=== PATIENT | female | born 1965 | race American Indian/Alaskan Native ===

== ENCOUNTER 2016-07-26 07:41 | Emergency (ER) | payer OTHER ==
[2016-07-26] MEDS ORDERED: SODIUM CHLORIDE 0.9% 500 ML IV STA (08:27)
[2016-07-26] MEDS ORDERED: ONDANSETRON 4 MG/2 ML VIAL IVP STA (08:44)
[2016-07-26] MEDS ORDERED: KETOROLAC 30 MG/ML 1 ML VIAL IVP STA (08:44)
[2016-07-26] MEDS ORDERED: FAMOTIDINE 20 MG/2 ML VIAL IV STA (08:44)
[2016-07-26 08:46] LABS: Basophils % (A) 1 %; Eosinophils # (A) 0.3 k/uL (0-0.7); Eosinophils % (A) 7 %; HCT 39.8 % (34.0-46.0); HDW 2.56; HGB 12.6 gm/dL (11.4-16.0); Luc # (Auto) 0.13; Luc % (Auto) 3; Lymphocytes # (A) 1.6 k/uL (1.0-4.8); Lymphocytes % (A) 35 %; MCH 24.7 pg (25.0-35.0); MCHC 31.6 g/dL (31.0-37.0); MCV 78.3 fL (80.0-100.0); Mean Platelet Volume 6.8; Monocytes # (A) 0.3 k/uL (0-1.0); Monocytes % (A) 6 %; Neutrophils # (A) 2.3 k/uL (1.3-7.7); Neutrophils % (A) 50 %; RBC 5.08 m/uL (3.80-5.40); RDW 12.7 % (11.5-15.5); WBC 4.7 k/uL (3.8-10.6); WBC (Perox) 4.63
--- NOTE | 2016-07-26 08:46 | ED ---
Abdominal Pain HPI - General Chief Complaint: Abdominal Pain Stated Complaint: abd pain Time Seen by Provider: 07/26/16 08:26 Source: patient, family, RN notes reviewed Mode of arrival: wheelchair Limitations: language barrier - History of Present Illness Initial Comments: 50-year-old female presents emergency Department chief complaint of right flank pain. Patient states started 2 days ago. Patient states she's had some nausea and vomiting. Denies any chest pain or shortness breath. Patient states it's on the right side towards her back and her abdomen. Patient states that she has chronic abdominal pain and which she seen surgeon for the past. She may have had a history of kidney stones. Patient denies any dysuria or hematuria. Denies any diarrhea constipation. Patient states that the Pain feel better or worse. - Related Data Home Medications Medication Instructions Recorded Confirmed Acetaminophen Tab [Tylenol Tab] 500 - 1,000 mg PO Q6H PRN 07/26/16 07/26/16 Albuterol Inhaler [Ventolin Hfa 2 puff INHALATION RT-Q4H PRN 07/26/16 07/26/16 Inhaler] Atorvastatin [Lipitor] 20 mg PO HS 07/26/16 07/26/16 Dicyclomine [Bentyl] 10 mg PO TID 07/26/16 07/26/16 Previous Rx's Medication Instructions Recorded Ciprofloxacin HCl [Cipro] 500 mg PO Q12HR #14 tablet 07/26/16 Allergies Allergy/AdvReac Type Severity Reaction Status Date / Time No Known Allergies Allergy Verified 07/26/16 08:40 Review of Systems ROS Statement: Those systems with pertinent positive or pertinent negative responses have been documented in the HPI. ROS Other: All systems not noted in ROS Statement are negative. Past Medical History Past Medical History: Asthma, Hyperlipidemia, Renal Disease Additional Past Medical History / Comment(s): uri History of Any Multi-Drug Resistant Organisms: None Reported Past Surgical History: Cholecystectomy Past Anesthesia/Blood Transfusion Reactions: No Reported Reaction Past Psychological History: No Psychological Hx Reported Smoking Status: Never smoker Past Alcohol Use History: None Reported Past Drug Use History: None Reported - Past Family History Father Family Medical History: Unable to Obtain Mother Family Medical History: Unable to Obtain General Exam Limitations: language barrier General appearance: alert, in no apparent distress Head exam: Present: atraumatic, normocephalic, normal inspection Eye exam: Present: normal appearance, PERRL, EOMI. Absent: scleral icterus, conjunctival injection, periorbital swelling Respiratory exam: Present: normal lung sounds bilaterally. Absent: respiratory distress, wheezes, rales, rhonchi, stridor Cardiovascular Exam: Present: regular rate, normal rhythm, normal heart sounds. Absent: systolic murmur, diastolic murmur, rubs, gallop, clicks GI/Abdominal exam: Present: soft, tenderness (Mild tenderness upper quadrant, right flank region), normal bowel sounds. Absent: distended, guarding, rebound , rigid Back exam: Present: full ROM, CVA tenderness (R). Absent: tenderness, CVA tenderness (L) Neurological exam: Present: alert, oriented X3, CN II-XII intact Skin exam: Present: warm, dry, intact, normal color. Absent: rash Course Vital Signs 07/26/16 07:47 Temperature 98.0 F Pulse Rate 84 Respiratory 20 Rate Blood Pressure 137/83 O2 Sat by Pulse 98 Oximetry Medical Decision Making - Medical Decision Making 50-year-old female presented for right-sided abdominal pain. Patient lab work within normal limits. Patient's urinalysis does show that she does have urinary tract infection. Patient's pain is improved at this time. Patient will be discharged. - Lab Data Result diagrams: 07/26/16 08:05 07/26/16 08:05 Lab Results 07/26/16 07/26/16 07/26/16 Range/Units 08:05 08:05 08:50 WBC 4.7 (3.8-10.6) k/uL RBC 5.08 (3.80-5.40) m/uL Hgb 12.6 (11.4-16.0) gm/dL Hct 39.8 (34.0-46.0) % MCV 78.3 L (80.0-100.0) fL MCH 24.7 L (25.0-35.0) pg MCHC 31.6 (31.0-37.0) g/dL RDW 12.7 (11.5-15.5) % Plt Count 209 (150-450) k/uL Neutrophils % 50 % Lymphocytes % 35 % Monocytes % 6 % Eosinophils % 7 % Basophils % 1 % Neutrophils # 2.3 (1.3-7.7) k/uL Lymphocytes # 1.6 (1.0-4.8) k/uL Monocytes # 0.3 (0-1.0) k/uL Eosinophils # 0.3 (0-0.7) k/uL Basophils # 0.0 (0-0.2) k/uL Sodium 143 (137-145) mmol/L Potassium 4.9 (3.5-5.1) mmol/L Chloride 103 (98-107) mmol/L Carbon Dioxide 30 (22-30) mmol/L Anion Gap 10 mmol/L BUN 12 (7-17) mg/dL Creatinine 0.64 (0.52-1.04) mg/dL Est GFR (MDRD) Af Amer >60 (>60 ml/min/1.73 sqM) Est GFR (MDRD) Non-Af >60 (>60 ml/min/1.73 sqM) Glucose 108 H (74-99) mg/dL Calcium 9.3 (8.4-10.2) mg/dL Total Bilirubin 0.6 (0.2-1.3) mg/dL AST 25 (14-36) U/L ALT 48 (9-52) U/L Alkaline Phosphatase 108 (38-126) U/L Total Protein 7.6 (6.3-8.2) g/dL Albumin 4.0 (3.5-5.0) g/dL Amylase 71 (30-110) U/L Lipase 100 (23-300) U/L Urine Color Urine Appearance (Clear) Urine pH (5.0-8.0) Ur Specific Marion (1.001-1.035) Urine Protein (Negative) Urine Glucose (UA) (Negative) Urine Ketones (Negative) Urine Blood (Negative) Urine Nitrate (Negative) Urine Bilirubin (Negative) Urine Urobilinogen (<2.0) mg/dL Ur Leukocyte Esterase (Negative) Urine RBC (0-5) /hpf Urine WBC (0-5) /hpf Ur Squamous Epith Cells (0-4) /hpf Urine Bacteria (None) /hpf Urine Mucus (None) /hpf Urine HCG, Qual Not Detected (Not Detectd) 07/26/16 Range/Units 08:50 WBC (3.8-10.6) k/uL RBC (3.80-5.40) m/uL Hgb (11.4-16.0) gm/dL Hct (34.0-46.0) % MCV (80.0-100.0) fL MCH (25.0-35.0) pg MCHC (31.0-37.0) g/dL RDW (11.5-15.5) % Plt Count (150-450) k/uL Neutrophils % % Lymphocytes % % Monocytes % % Eosinophils % % Basophils % % Neutrophils # (1.3-7.7) k/uL Lymphocytes # (1.0-4.8) k/uL Monocytes # (0-1.0) k/uL Eosinophils # (0-0.7) k/uL Basophils # (0-0.2) k/uL Sodium (137-145) mmol/L Potassium (3.5-5.1) mmol/L Chloride (98-107) mmol/L Carbon Dioxide (22-30) mmol/L Anion Gap mmol/L BUN (7-17) mg/dL Creatinine (0.52-1.04) mg/dL Est GFR (MDRD) Af Amer (>60 ml/min/1.73 sqM) Est GFR (MDRD) Non-Af (>60 ml/min/1.73 sqM) Glucose (74-99) mg/dL Calcium (8.4-10.2) mg/dL Total Bilirubin (0.2-1.3) mg/dL AST (14-36) U/L ALT (9-52) U/L Alkaline Phosphatase (38-126) U/L Total Protein (6.3-8.2) g/dL Albumin (3.5-5.0) g/dL Amylase (30-110) U/L Lipase (23-300) U/L Urine Color Light Yellow Urine Appearance Clear (Clear) Urine pH 5.0 (5.0-8.0) Ur Specific Marion 1.010 (1.001-1.035) Urine Protein Negative (Negative) Urine Glucose (UA) Negative (Negative) Urine Ketones Negative (Negative) Urine Blood Small H (Negative) Urine Nitrate Negative (Negative) Urine Bilirubin Negative (Negative) Urine Urobilinogen <2.0 (<2.0) mg/dL Ur Leukocyte Esterase Large H (Negative) Urine RBC 2 (0-5) /hpf Urine WBC 12 H (0-5) /hpf Ur Squamous Epith Cells 4 (0-4) /hpf Urine Bacteria Rare H (None) /hpf Urine Mucus Rare H (None) /hpf Urine HCG, Qual (Not Detectd) Disposition Clinical Impression: UTI (urinary tract infection) Disposition: HOME SELF-CARE Condition: Stable Instructions: Urinary Tract Infection in Women (ED) Additional Instructions: Please return to the Emergency Department if symptoms worsen or any other concerns. Prescriptions: Ciprofloxacin HCl [Cipro] 500 mg PO Q12HR #14 tablet Referrals: Ismael Hayes MD [Primary Care Provider] - 1-2 days Time of Disposition: 10:37
[2016-07-26 09:01] LABS: ALT 48 U/L (9-52); AST 25 U/L (14-36); Alkaline Phosphatase 108 U/L (38-126); Amylase 71 U/L (30-110); Anion Gap 10 mmol/L; Blood Urea Nitrogen 12 mg/dL (7-17); Calcium 9.3 mg/dL (8.4-10.2); Carbon Dioxide 30 mmol/L (22-30); Chloride 103 mmol/L (98-107); Glucose 108 mg/dL (74-99); Non-African American GFR(MDRD) >60 (>60 ml/min/1.73 sqM); Potassium 4.9 mmol/L (3.5-5.1); Sodium 143 mmol/L (137-145); Total Bilirubin 0.6 mg/dL (0.2-1.3); Total Protein 7.6 g/dL (6.3-8.2)
[2016-07-26 09:15] LABS: Appearance,Urine Clear (Clear); Bacteria,Urine Rare /hpf; Bilirubin,Urine Negative (Negative); Glucose,Urine (UA) Negative (Negative); Ketones,Urine Negative (Negative); Leukocyte Esterase,Urine Large (Negative); Mucus,Urine Rare /hpf; Nitrite,Urine Negative (Negative); Particle Count 3583; Protein,Urine Negative (Negative); RBC,Urine 2 /hpf (0-5); Squamous Epithelial Cell,Urine 4 /hpf (0-4); UA Billing (MACRO vs. MICRO) MICRO; Urobilinogen,Urine <2.0 mg/dL (<2.0); WBC,Urine 12 /hpf (0-5)
--- NOTE | 2016-07-26 10:10 | XR ---
EXAMINATION TYPE: XR KUB DATE OF EXAM: 07/26/2016 10:04 AM COMPARISON: NONE HISTORY: TECHNIQUE: Single supine KUB image of the abdomen is obtained FINDINGS: Small bowel demonstrates no evidence for dilatation or air fluid levels. Gas and fecal material is seen in non-distended colon. No convincing evidence for pneumoperitoneum. No unusual calcifications. The lung bases are clear. The osseous structures are intact. IMPRESSION: 1. Nonspecific nonobstructive bowel gas pattern.
[2016-07-26 10:49] VITALS: BP 134/88; PULSE 81; RESP 16; TEMP 97.8
== END 2016-07-26 10:48 | disposition home or self-care (01) ==
LOC: EC 07:41
DX: N39.0 Urinary tract infection, site not specified (principal); E78.5 Hyperlipidemia, unspecified; Z79.899 Other long term (current) drug therapy
CPT/HCPCS: 99284; 96374; 96375 ×2; 96361; 36415; 80053; 82150; 83690; 85025; 81001; 81025; 87086; 74000; J2405; J1885

== ENCOUNTER → 2016-08-10 | Outpatient (CLI) | payer OTHER ==
--- NOTE | 2016-08-10 17:48 | FL ---
EXAMINATION: Upper GI with small bowel follow through DATE: 08/10/2016 COMPARISON: Correlation CT 10/13/2015 HISTORY: 50-year-old female complaining of mid to lower abdominal pain for 2 years. GERD. Total Fluoroscopy Time: 1 minute 16 seconds. FINDINGS: The esophagus has a normal course, caliber, motility and mucosa. There is a tiny sliding hiatal hernia and moderate to severe spontaneous gastroesophageal reflux when the patient is supine. The stomach and duodenum are free of any persistent filling defect and demonstrate a normal mucosal p attern. Following administration of barium, serial films were carried out to 30 minutes. Barium is seen to re ach the colon. Loops of jejunum and ileum are compressed and examined under fluoroscopy. The small yunior wel loops have a normal-caliber. Mucosal pattern is within normal limits. No intrinsic or extrinsic p rocess is suspected. IMPRESSION: 1. A tiny sliding hiatal hernia but with moderate to severe spontaneous gastroesophageal reflux when the patient is supine. 2. Borderline fast small bowel transit time (30 minutes) but otherwise unremarkable small bowel exami nation. 3. The CT of 10/13/2015 is reviewed. There is hepatomegaly (21 cm craniocaudal) on that exam along wit h findings suggesting hepatic steatosis. Correlate with LFTs, lipid profile, and patient risk factors .
== END | disposition home or self-care (01) ==
LOC: RADFLMAIN 08:43
PROVIDERS: ATTEND Internal Medicine
DX: K21.9 Gastro-esophageal reflux disease without esophagitis (principal); K44.9 Diaphragmatic hernia without obstruction or gangrene
CPT/HCPCS: 74249

== ENCOUNTER → 2016-09-01 | Outpatient (CLI) | payer OTHER ==
--- NOTE | 2016-09-01 17:52 | XR ---
EXAMINATION TYPE: XR sacroiliac joint comp BILAT DATE OF EXAM: 09/01/2016 5:48 PM COMPARISON: 06/10/2014 HISTORY: SI joint pain TECHNIQUE: 3 views FINDINGS: Sacroiliac joint spaces are normal. I see no erosion or sclerosis. IMPRESSION: Normal exam. No change compared to old exam.
[2016-09-01 21:15] LABS: Appearance,Urine Clear (Clear); Bilirubin,Urine Negative (Negative); Glucose,Urine (UA) Negative (Negative); Ketones,Urine Negative (Negative); Leukocyte Esterase,Urine Small (Negative); Mucus,Urine Rare /hpf; Nitrite,Urine Negative (Negative); PH, Urine 5.5 (5.0-8.0); Particle Count 907; Protein,Urine Negative (Negative); RBC,Urine 1 /hpf (0-5); Specific Gravity,Urine 1.013 (1.001-1.035); Squamous Epithelial Cell,Urine 1 /hpf (0-4); UA Billing (MACRO vs. MICRO) MICRO; Urobilinogen,Urine <2.0 mg/dL (<2.0); WBC,Urine 7 /hpf (0-5)
[2016-09-02 16:57] LABS: ANA w/Reflex to Titer NEGATIVE (NEGATIVE)
== END | disposition home or self-care (01) ==
LOC: RADXRMAIN 17:25
PROVIDERS: ATTEND Internal Medicine
DX: M46.1 Sacroiliitis, not elsewhere classified (principal); M35.9 Systemic involvement of connective tissue, unspecified; M19.90 Unspecified osteoarthritis, unspecified site
CPT/HCPCS: 72202; 81001; 85652; 86038; 86225; 87086

== ENCOUNTER → 2016-11-10 | Outpatient (CLI) | payer OTHER ==
[2016-11-10 11:22] LABS: Appearance,Urine Clear (Clear); Bacteria,Urine Rare /hpf; Bilirubin,Urine Negative (Negative); Glucose,Urine (UA) Negative (Negative); Ketones,Urine Negative (Negative); Leukocyte Esterase,Urine Moderate (Negative); Mucus,Urine Rare /hpf; Nitrite,Urine Negative (Negative); Particle Count 2438; Protein,Urine Negative (Negative); RBC,Urine 2 /hpf (0-5); Specific Gravity,Urine 1.015 (1.001-1.035); Squamous Epithelial Cell,Urine 5 /hpf (0-4); UA Billing (MACRO vs. MICRO) MICRO; Urobilinogen,Urine <2.0 mg/dL (<2.0); WBC,Urine 8 /hpf (0-5)
[2016-11-10 11:34] LABS: Basophils % (A) 1 %; CH 24.7; CHCM 30.8; Eosinophils # (A) 0.2 k/uL (0-0.7); Eosinophils % (A) 5 %; HCT 36.2 % (34.0-46.0); HDW 2.57; HGB 11.2 gm/dL (11.4-16.0); Hypochromasia Moderate; Luc # (Auto) 0.14; Luc % (Auto) 4; Lymphocytes # (A) 1.4 k/uL (1.0-4.8); Lymphocytes % (A) 36 %; MCH 24.8 pg (25.0-35.0); MCHC 30.8 g/dL (31.0-37.0); MCV 80.4 fL (80.0-100.0); Mean Platelet Volume 6.4; Monocytes # (A) 0.2 k/uL (0-1.0); Monocytes % (A) 5 %; Neutrophils % (A) 49 %; RBC 4.51 m/uL (3.80-5.40); RDW 12.5 % (11.5-15.5); WBC 4.1 k/uL (3.8-10.6); WBC (Perox) 3.96
[2016-11-10 11:56] LABS: ALT 48 U/L (9-52); AST 32 U/L (14-36); Alkaline Phosphatase 103 U/L (38-126); Anion Gap 7 mmol/L; Blood Urea Nitrogen 12 mg/dL (7-17); Calcium 8.7 mg/dL (8.4-10.2); Carbon Dioxide 28 mmol/L (22-30); Chloride 106 mmol/L (98-107); Cholesterol 179 mg/dL (<200); Creatine Kinase 73 U/L (30-135); Glucose 99 mg/dL (74-99); HDL Cholesterol 34 mg/dL (40-60); Non-African American GFR(MDRD) >60 (>60 ml/min/1.73 sqM); Potassium 4.2 mmol/L (3.5-5.1); Sodium 141 mmol/L (137-145); Total Bilirubin 0.6 mg/dL (0.2-1.3); Total Protein 6.9 g/dL (6.3-8.2); Triglycerides 280 mg/dL (<150)
[2016-11-10 11:56] LABS: Magnesium 1.8 mg/dL (1.6-2.3); Phosphorous 3.3 mg/dL (2.5-4.5); Uric Acid 4.6 mg/dL (3.7-7.4)
[2016-11-10 13:00] LABS: C Reactive Protein <5.0 mg/L (<10.0)
[2016-11-10 14:02] LABS: Hemoglobin A1C 5.8 % (4.2-6.1)
[2016-11-10 14:21] LABS: Erythrocyte Sedimentation Rate 20 mm/hr (0-20)
== END | disposition home or self-care (01) ==
LOC: LABWHC1 10:17
PROVIDERS: ATTEND Internal Medicine
DX: Z00.00 Encounter for general adult medical examination without abnormal findings (principal); E78.5 Hyperlipidemia, unspecified; D64.9 Anemia, unspecified; N28.1 Cyst of kidney, acquired; I10 Essential (primary) hypertension; R31.29 Other microscopic hematuria; E55.9 Vitamin D deficiency, unspecified; E21.3 Hyperparathyroidism, unspecified; M10.9 Gout, unspecified
CPT/HCPCS: 36415; 80053; 80061; 81001; 82306; 82550; 82728; 83036; 83540; 83550; 83735; 83970; 84100; 84443; 84550; 85025; 85652; 86140

== ENCOUNTER 2017-06-05 17:15 | Emergency (ER) | payer OTHER ==
[2017-06-05 17:22] VITALS: BP 142/66; PULSE 83; RESP 16; TEMP 97.1
[2017-06-05] MEDS ORDERED: ORPHENADRINE 30 MG/ML 2 ML VIAL IM STA (17:33)
[2017-06-05] MEDS ORDERED: KETOROLAC 60 MG/2 ML VIAL IM STA (17:33)
--- NOTE | 2017-06-05 17:41 | ED ---
General Adult HPI - General Chief complaint: Abdominal Pain Stated complaint: back pain Time Seen by Provider: 06/05/17 17:27 Source: patient, family, RN notes reviewed Mode of arrival: ambulatory Limitations: no limitations, language barrier - History of Present Illness Initial comments: 51-year-old female presents to the emergency department with a chief complaint of left-sided back pain that extends up into the left shoulder. 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 she has the pain to the left side of the back and shoulder. Chest on the left side. There is no falls traumas or injuries. There is no numbness or tingling no loss of bowel bladder function. They're concerned due to the pulled muscles without that they should be. She also has some dry skin to the feet and they thought maybe we could give him something to help clear that up as well. There is been no nausea vomiting fever chills with this. Patient suffers from chronic abdominal pain but this is no different than her typical abdominal pain. Patient denies any recent fever, chills, shortness of breath, chest pain, abdominal pain, nausea vomiting, numbness or tingling, dysuria or hematuria, constipation or diarrhea, headaches or visual changes, or any other current symptoms. - Related Data Home Medications Medication Instructions Recorded Confirmed Cholecalciferol [Vitamin D3] 1,000 unit PO DAILY 06/05/17 06/05/17 Unknown Cholesterol Medication 40 mg PO DAILY 06/05/17 06/05/17 Previous Rx's Medication Instructions Recorded Bacitracin Oint 1 applic TOPICAL DAILY 5 Days gm 06/05/17 Ibuprofen [Motrin] 600 mg PO Q6HR PRN #20 tab 06/05/17 Orphenadrine [Norflex] 100 mg PO Q12H #10 tablet.er 06/05/17 Allergies Allergy/AdvReac Type Severity Reaction Status Date / Time No Known Allergies Allergy Verified 06/05/17 17:22 Review of Systems ROS Statement: Those systems with pertinent positive or pertinent negative responses have been documented in the HPI. ROS Other: All systems not noted in ROS Statement are negative. Past Medical History Past Medical History: Asthma, Hyperlipidemia, Renal Disease Additional Past Medical History / Comment(s): uri History of Any Multi-Drug Resistant Organisms: None Reported Past Surgical History: Cholecystectomy Past Anesthesia/Blood Transfusion Reactions: No Reported Reaction Past Psychological History: No Psychological Hx Reported Smoking Status: Never smoker Past Alcohol Use History: None Reported Past Drug Use History: None Reported - Past Family History Father Family Medical History: Unable to Obtain Mother Family Medical History: Unable to Obtain General Exam Limitations: no limitations, language barrier General appearance: alert, in no apparent distress ENT exam: Present: normal exam, mucous membranes moist Neck exam: Present: normal inspection. Absent: tenderness, meningismus, lymphadenopathy Respiratory exam: Present: normal lung sounds bilaterally. Absent: respiratory distress, wheezes, rales, rhonchi, stridor Cardiovascular Exam: Present: regular rate, normal rhythm, normal heart sounds. Absent: systolic murmur, diastolic murmur, rubs, gallop, clicks Extremities exam: Present: normal inspection, full ROM, normal capillary refill. Absent: tenderness, pedal edema, joint swelling, calf tenderness Back exam: Present: normal inspection, full ROM, tenderness (Along the left paraspinal region), muscle spasm (left paraspinal and thoracic). Absent: rash noted Neurological exam: Present: alert, oriented X3 Psychiatric exam: Present: normal affect, normal mood Skin exam: Present: warm, dry, intact, normal color. Absent: rash Course Vital Signs 06/05/17 17:19 Temperature 97.1 F L Pulse Rate 83 Respiratory 16 Rate Blood Pressure 142/66 O2 Sat by Pulse 100 Oximetry Medical Decision Making - Medical Decision Making 51 yo female presents to the ER with cc of left sided lumbar and thoracic strain. At this time patient's x-ray was discussed the results. We did discuss follow-up return parameters questions. Patient family stated the Vincent they're in agreement this plan. All questions have been answered. They'll be discharged. - Radiology Data Radiology results: report reviewed, image reviewed Disposition Clinical Impression: Lumbar strain, Dry skin, Thoracic myofascial strain Disposition: HOME SELF-CARE Condition: Stable Instructions: Low Back Strain (ED), Lower Back Exercises (ED) Additional Instructions: Please use medication as discussed. Please follow up with family doctor if symptoms have not improved over the next two days. Please return to the emergency room if your symptoms increase or worsen or for any other concerns. Prescriptions: Bacitracin Oint 1 applic TOPICAL DAILY 5 Days gm Ibuprofen [Motrin] 600 mg PO Q6HR PRN #20 tab PRN Reason: Pain Orphenadrine [Norflex] 100 mg PO Q12H #10 tablet.er Referrals: Ismael Hayes MD [Primary Care Provider] - 1-2 days Time of Disposition: 18:06
--- NOTE | 2017-06-05 17:53 | XR ---
EXAMINATION TYPE: XR lumbar spine 2 or 3V DATE OF EXAM: 06/05/2017 COMPARISON: NONE HISTORY: Right-sided back pain TECHNIQUE: 3 views FINDINGS: There is 25% anterior wedging of L2 vertebral body. This is probably old. Vertebra have tonia rly normal alignment. Sacroiliac joints are intact. I see no focal bone destruction. There are clips from cholecystectomy. IMPRESSION: L1 compression fracture is unchanged compared to CT scan of 10/05/2015. No acute bony abno rmality..
== END 2017-06-05 18:24 | disposition home or self-care (01) ==
LOC: EC 17:15
DX: S39.012A Strain of muscle, fascia and tendon of lower back, initial encounter (principal); S29.019A Strain of muscle and tendon of unspecified wall of thorax, initial encounter; L98.8 Other specified disorders of the skin and subcutaneous tissue; E78.5 Hyperlipidemia, unspecified; Z90.49 Acquired absence of other specified parts of digestive tract; Z79.899 Other long term (current) drug therapy
CPT/HCPCS: 72100; 99284; 96372 ×2; J2360; J1885

== ENCOUNTER → 2017-07-21 | Outpatient (CLI) | payer OTHER ==
[2017-07-21 12:45] LABS: Basophils % (A) 0 %; Eosinophils # (A) 0.2 k/uL (0-0.7); Eosinophils % (A) 3 %; HCT 41.2 % (34.0-46.0); HGB 12.4 gm/dL (11.4-16.0); Hypochromasia Slight; Lymphocytes # (A) 1.5 k/uL (1.0-4.8); Lymphocytes % (A) 32 %; MCH 23.9 pg (25.0-35.0); MCHC 30.2 g/dL (31.0-37.0); MCV 79.1 fL (80.0-100.0); Mean Platelet Volume 6.8; Monocytes # (A) 0.2 k/uL (0-1.0); Monocytes % (A) 5 %; Neutrophils # (A) 2.6 k/uL (1.3-7.7); Neutrophils % (A) 57 %; Platelet Count 229 k/uL (150-450); RBC 5.22 m/uL (3.80-5.40); RDW 12.5 % (11.5-15.5); WBC 4.5 k/uL (3.8-10.6)
[2017-07-21 12:56] LABS: ALT 55 U/L (9-52); AST 28 U/L (14-36); Albumin 4.1 g/dL (3.5-5.0); Alkaline Phosphatase 107 U/L (38-126); Anion Gap 7 mmol/L; Blood Urea Nitrogen 19 mg/dL (7-17); Calcium 9.5 mg/dL (8.4-10.2); Carbon Dioxide 30 mmol/L (22-30); Chloride 103 mmol/L (98-107); Glucose 100 mg/dL (74-99); HDL Cholesterol 38 mg/dL (40-60); Potassium 4.7 mmol/L (3.5-5.1); Sodium 140 mmol/L (137-145); Total Bilirubin 0.5 mg/dL (0.2-1.3); Total Protein 7.7 g/dL (6.3-8.2); Triglycerides 241 mg/dL (<150); Uric Acid 4.5 mg/dL (3.7-7.4)
[2017-07-21 13:01] LABS: LDL Cholesterol,Calculated 270 mg/dL (0-99)
[2017-07-21 13:29] LABS: Cholesterol 356 mg/dL (<200)
[2017-07-21 18:57] LABS: Vitamin D 25 Hydroxy 29.7 ng/mL (30.0-100.0)
[2017-07-21 21:38] LABS: Parathyroid Hormone Intact 87.1 pg/mL (14.0-72.0)
== END ==
LOC: LABWHC1 12:13
PROVIDERS: ATTEND Internal Medicine
DX: N18.3 Chronic kidney disease, stage 3 (moderate) (principal); E78.5 Hyperlipidemia, unspecified; E21.3 Hyperparathyroidism, unspecified; I10 Essential (primary) hypertension; E55.9 Vitamin D deficiency, unspecified; E16.2 Hypoglycemia, unspecified
CPT/HCPCS: 36415; 80053; 80061; 82306; 83970; 84443; 84550; 85025

== ENCOUNTER → 2017-08-18 | Outpatient (CLI) | payer OTHER ==
--- NOTE | 2017-08-18 13:01 | CT ---
EXAMINATION TYPE: CT urogram wo/w con DATE OF EXAM: 08/18/2017 COMPARISON: 06/15/2017 HISTORY: 51-year-old female Hematuria. TECHNIQUE: Contiguous axial scanning of the abdomen and pelvis performed without and with IV Contrast , patient injected with 100 mL of Omnipaque 300. Delayed images through the kidneys and bladder were obtained. Coronal/sagittal reconstructions performed. 3-D reconstructions generated on a dedicated in dependent workstation. CT DLP: 2986 mGycm Automated exposure control for dose reduction was used. FINDINGS: Heart is normal size without pericardial effusion. Lung bases clear without pleural effusion. Redemonstrated mild thyromegaly at 17.8 cm craniocaudal. Diffuse low-attenuation compatible with fatt y infiltration. Portal venous system is patent. No biliary ductal dilatation. Cholecystectomy clips a re present. Adrenal glands, spleen, and pancreas appear within normal limits. Symmetric uptake and excretion of contrast from the kidneys. Stable 1 cm hypodense lesion anterior mid right kidney too small for accurate CT characterization, li kwasi cyst. Also stable in 0.1 cm cortical hypodensity anterior left lower pole also [address] charact erization, likely cyst. No new renal lesions or nephrolithiasis is seen. No suspicious filling defect within the collecting systems ureters appear within normal limits. Both ureters are seen opacified along their entire length in combination with both the 4 minute and 10 min june delayed series. Prominent fluid distending the stomach. No dilated small bowel, free fluid, or free air. No mesenteric or retroperitoneal lymphadenopathy. Normal appendix. No significant stool burden. No pericolonic inflammatory change. The opacified bladder shows no discrete abnormality or filling defect. Uterus and ovaries are visuali zed. No abnormal fluid collection in the pelvis or pelvic lymphadenopathy. Bones: No osseous destructive process. Degenerative disc disease and facet arthropathy noted at L1-L2 with grade 1 retrolisthesis. IMPRESSION: 1. NO NEPHROLITHIASIS, HYDRONEPHROSIS, OR SUSPICIOUS RENAL LESION. 2. A 1 CM HYPODENSITY ON THE RIGHT AND 1.1 CM HYPODENSE LESION ON THE LEFT ARE UNCHANGED. WHILE THESE ARE TOO SMALL FOR ACCURATE CT CHARACTERIZATION, BENIGN CYSTS ARE SUSPECTED. 3. REDEMONSTRATED MILD HEPATOMEGALY AND MODERATE TO SEVERE HEPATIC STEATOSIS. CORRELATE WITH LFT's, L IPID PROFILE, AND PATIENT RISK FACTORS.
== END | disposition home or self-care (01) ==
LOC: RADCTMAIN 11:41
PROVIDERS: ATTEND Internal Medicine
DX: N28.89 Other specified disorders of kidney and ureter (principal); R16.0 Hepatomegaly, not elsewhere classified; K76.0 Fatty (change of) liver, not elsewhere classified; R93.421 Abnormal radiologic findings on diagnostic imaging of right kidney
CPT/HCPCS: 74178; 74400; Q9967

== ENCOUNTER → 2017-08-29 | Outpatient (CLI) | payer OTHER ==
[2017-08-29 13:16] LABS: Basophils % (A) 0 %; Eosinophils # (A) 0.2 k/uL (0-0.7); Eosinophils % (A) 6 %; HCT 38.4 % (34.0-46.0); HGB 11.7 gm/dL (11.4-16.0); Hypochromasia Slight; Lymphocytes # (A) 1.5 k/uL (1.0-4.8); Lymphocytes % (A) 36 %; MCH 24.1 pg (25.0-35.0); MCHC 30.5 g/dL (31.0-37.0); Mean Platelet Volume 6.6; Monocytes # (A) 0.2 k/uL (0-1.0); Monocytes % (A) 5 %; Neutrophils # (A) 2.1 k/uL (1.3-7.7); Neutrophils % (A) 51 %; Platelet Count 227 k/uL (150-450); RBC 4.86 m/uL (3.80-5.40); RDW 12.7 % (11.5-15.5); WBC 4.2 k/uL (3.8-10.6)
[2017-08-29 13:31] LABS: ALT 29 U/L (9-52); AST 25 U/L (14-36); Alkaline Phosphatase 99 U/L (38-126); Anion Gap 9 mmol/L; Blood Urea Nitrogen 14 mg/dL (7-17); Calcium 9.3 mg/dL (8.4-10.2); Carbon Dioxide 31 mmol/L (22-30); Chloride 104 mmol/L (98-107); Glucose 97 mg/dL (74-99); Potassium 4.9 mmol/L (3.5-5.1); Sodium 144 mmol/L (137-145); Total Bilirubin 0.4 mg/dL (0.2-1.3); Total Protein 7.3 g/dL (6.3-8.2)
== END | disposition home or self-care (01) ==
LOC: LABWHC1 12:19
PROVIDERS: ATTEND Internal Medicine
DX: E11.9 Type 2 diabetes mellitus without complications (principal)
CPT/HCPCS: 36415; 80053; 85025

== ENCOUNTER → 2017-09-27 | Outpatient (CLI) | payer OTHER ==
[2017-09-27 17:48] LABS: T4, Free (Free Thyroxine) 1.42 ng/dL (0.78-2.19)
--- NOTE | 2017-09-27 22:39 | US ---
EXAMINATION TYPE: US thyroid st tissue head/neck DATE OF EXAM: 09/27/2017 COMPARISON: NONE CLINICAL HISTORY: 51-year-old female E04.9 THYROMEGALY. Technique: Multiple sonographic images of the thyroid gland are obtained. FINDINGS: Right Lobe: 3.6 x 1.6 x 1.8 cm Overall Parenchyma: homogenous Left Lobe: 3.1 x 1.4 x 1.6 cm Overall Parenchyma: homogeneous Isthmus Thickness: 0.2 cm NODULES RIGHT: # of nodules measured on right: 1 1. 1.2 X 1.1 x 1.1 cm isoechoic solid nodule at the lower pole with well-defined margins; . This n odule is wider than tall and shows intranodular vascularity. Prior size: no prior LEFT: # of nodules measured on left: 0 ISTHMUS: # of nodules measured in the isthmus: 0 Bilateral neck scanned, no evidence of lymphadenopathy. IMPRESSION: Solitary 1.2 cm solid nodule in the right lower pole. If there are no clinical findings to suggest a hyperfunctioning adenoma, FNA can be considered.
[2017-09-28 01:19] LABS: Parathyroid Hormone Intact 108.1 pg/mL (14.0-72.0); Thyroid Peroxidase Antibodies <28.0 U/mL (0.0-60.0)
== END | disposition home or self-care (01) ==
LOC: RADUSWWP 16:21
PROVIDERS: ATTEND Internal Medicine
DX: E04.1 Nontoxic single thyroid nodule (principal); E03.9 Hypothyroidism, unspecified
CPT/HCPCS: 36415; 76536; 83970; 84439; 84443; 85652; 86376; 86800

== ENCOUNTER → 2017-10-03 | Outpatient (CLI) | payer OTHER ==
--- NOTE | 2017-10-04 09:07 | NM ---
EXAMINATION TYPE: NM parathyroid DATE OF EXAM: 10/03/2017 COMPARISON: NONE HISTORY: Abnormal calcium levels and increased parathyroid hormone TECHNIQUE: Following administration of 25.4 mCi Tc99m Sestamibi. Anterior projection images of the neck and ches t were obtained 10 minutes and 3 hours post injection FINDINGS: Thyroid tracer washout: Delayed images demonstrate incomplete tracer washout from the thyroid. Parathyroid uptake: None. The two-hour delayed images do not demonstrate any focal abnormal persisten t uptake in the region of the parathyroid glands to suggest parathyroid adenoma. Normal uptake: There is physiological tracer uptake in the salivary glands, and thyroid gland. IMPRESSION: Although laboratory values suggest parathyroid adenoma no parathyroid adenoma is appreciated on the e xamination. No evidence for mediastinal uptake to suggest mediastinal parathyroid adenoma
== END | disposition home or self-care (01) ==
LOC: RADNMMAIN 11:28
PROVIDERS: ATTEND Internal Medicine
DX: D35.1 Benign neoplasm of parathyroid gland (principal)
CPT/HCPCS: 78070; A9500

== ENCOUNTER 2017-10-20 11:46 | Emergency (ER) | payer OTHER ==
--- NOTE | 2017-10-20 12:16 | ED ---
General Adult HPI - General Chief complaint: Upper Respiratory Infection Stated complaint: Cough Time Seen by Provider: 10/20/17 12:07 Source: patient, RN notes reviewed Mode of arrival: ambulatory Limitations: no limitations - History of Present Illness Initial comments: 51-year-old female presents to the emergency department for a chief complaint of cough and congestion x 2 days. Patient's is translating for her as she is not Sudanese speaking. Patient states the cough is sometimes productive and she sometimes feels short of breath after a coughing spell. She has also been congested for the past 2 days and complains of pressure in the ears bilaterally. Patient admits to chills but states she has not checked her temperature at home. Patient admits to sore throat only when she coughs. Patient denies any abdominal pain, nausea, or vomiting. Patient denies chest pain or tightness in the chest. Patient admits to history of asthma but denies smoking or COPD. Patient has a nebulizer at home for which she has run out of medication. - Related Data Home Medications Medication Instructions Recorded Confirmed Cholecalciferol [Vitamin D3] 1,000 unit PO DAILY 06/05/17 10/20/17 Unknown Cholesterol Medication 40 mg PO DAILY 06/05/17 10/20/17 Previous Rx's Medication Instructions Recorded Ibuprofen [Motrin] 600 mg PO Q6HR PRN #20 tab 06/05/17 Orphenadrine [Norflex] 100 mg PO Q12H #10 tablet.er 06/05/17 Albuterol Nebulized [Ventolin 2.5 mg INHALATION Q6H PRN 10 Days 10/20/17 Nebulized] nebu Benzonatate [Tessalon Perles] 200 mg PO Q8H PRN #15 capsule 10/20/17 predniSONE 50 mg PO DAILY #5 tablet 10/20/17 Allergies Allergy/AdvReac Type Severity Reaction Status Date / Time No Known Allergies Allergy Verified 10/20/17 12:05 Review of Systems ROS Statement: Those systems with pertinent positive or pertinent negative responses have been documented in the HPI. ROS Other: All systems not noted in ROS Statement are negative. Past Medical History Past Medical History: Asthma, Hyperlipidemia, Renal Disease Additional Past Medical History / Comment(s): uri History of Any Multi-Drug Resistant Organisms: None Reported Past Surgical History: Cholecystectomy Past Anesthesia/Blood Transfusion Reactions: No Reported Reaction Past Psychological History: No Psychological Hx Reported Smoking Status: Never smoker Past Alcohol Use History: None Reported Past Drug Use History: None Reported - Past Family History Father Family Medical History: Unable to Obtain Mother Family Medical History: Unable to Obtain General Exam Limitations: no limitations Head exam: Present: atraumatic, normocephalic, normal inspection Eye exam: Present: normal appearance, PERRL, EOMI. Absent: scleral icterus, conjunctival injection, periorbital swelling ENT exam: Present: normal exam, normal oropharynx, mucous membranes moist, TM's normal bilaterally Neck exam: Present: normal inspection, full ROM. Absent: tenderness, meningismus, lymphadenopathy Respiratory exam: Present: wheezes (Bilaterally). Absent: respiratory distress , rales, rhonchi, stridor, chest wall tenderness, accessory muscle use, decreased breath sounds, prolonged expiratory Cardiovascular Exam: Present: regular rate, normal rhythm, normal heart sounds. Absent: systolic murmur, diastolic murmur, rubs, gallop, clicks GI/Abdominal exam: Present: soft, normal bowel sounds. Absent: distended, tenderness, guarding, rebound, rigid Neurological exam: Present: alert, oriented X3 Psychiatric exam: Present: normal affect, normal mood Skin exam: Present: warm, dry, intact, normal color. Absent: rash Course Vital Signs 10/20/17 10/20/17 12:02 13:09 Temperature 98.1 F 98.3 F Pulse Rate 75 81 Respiratory 18 20 Rate Blood Pressure 121/71 132/65 O2 Sat by Pulse 96 98 Oximetry Medical Decision Making - Medical Decision Making 51-year-old female presents to the emergency department for a chief complaint of cough and congestion x 2 days. Patient has a history of asthma but denies COPD or smoking. Patient states she has had chills but has not checked her temperature at home. Patient is afebrile on examination. Vitals within normal limits: Temp 98.1F, pulse 75, respirations 18, blood pressure 121/71, pulse ox 96% on room air. Patient states she only has a sore throat when she coughs. On exam, no submandibular glands present nor erythematous/exudative tonsils. Patient does have bilateral wheezing in the lungs. Flu swab and chest x-ray were obtained. Chest x-ray showed no acute cardiopulmonary process. There are chronic changes with possible chronic bronchitis or asthma. Influenza was negative. This is likely a upper respiratory infection. Patient was given Tessalon Perles, prednisone, and albuterol for her nebulizer at home. Patient is to come back to the emergency Department if she has worsening symptoms, high fevers, or difficulty breathing. She is to follow up with primary care in 1-2 days. - Lab Data Lab Results 10/20/17 Range/Units 12:15 Influenza Type A RNA Not Detected (Not Detectd) Influenza Type B (PCR) Not Detected (Not Detectd) Disposition Clinical Impression: Common cold Disposition: HOME SELF-CARE Condition: Good Instructions: Upper Respiratory Infection (ED) Additional Instructions: Please take medications provided as directed. Please take ibuprofen or Tylenol for pain relief or fever reduction. Please follow-up with primary care provider in one to 2 days. Please return to the emergency department if symptoms worsen, you develop shortness of breath, or start developing high fevers. Prescriptions: Albuterol Nebulized [Ventolin Nebulized] 2.5 mg INHALATION Q6H PRN 10 Days nebu PRN Reason: Shortness Of Breath Benzonatate [Tessalon Perles] 200 mg PO Q8H PRN #15 capsule PRN Reason: Cough predniSONE 50 mg PO DAILY #5 tablet Referrals: Ismael Hayes MD [Primary Care Provider] - 1-2 days Time of Disposition: 13:03
--- NOTE | 2017-10-20 12:35 | XR ---
EXAMINATION TYPE: XR chest 2V DATE OF EXAM: 10/20/2017 COMPARISON: 02/05/2016 HISTORY: 51-year-old female with cough and congestion, pain TECHNIQUE: Frontal and lateral views FINDINGS: Heart normal size. Aorta within normal limits. Diffuse interstitial prominence with peribronchial cuf fing appears unchanged. No consolidation or pleural effusion. IMPRESSION: Chronic changes, possible chronic bronchitis/asthma. No acute cardiopulmonary process.
[2017-10-20 13:10] VITALS: BP 132/65; PULSE 81; RESP 20; TEMP 98.3
== END 2017-10-20 13:09 | disposition home or self-care (01) ==
LOC: EC 11:46
DX: J00 Acute nasopharyngitis [common cold] (principal); R06.02 Shortness of breath; E78.5 Hyperlipidemia, unspecified; Z79.899 Other long term (current) drug therapy
CPT/HCPCS: 71046; 87502; 99283

== ENCOUNTER 2017-11-11 12:17 | Day surgery (SDC) | payer OTHER ==
[2017-11-11 12:48] VITALS: RESP 16; TEMP 97.7
[2017-11-11] MEDS ORDERED: ALPRAZolam 0.5 MG TAB PO STA (12:55)
--- NOTE | 2017-11-11 14:08 | US ---
ULTRASOUND GUIDED FNA THYROID BIOPSY: CLINICAL HISTORY: Right thyroid nodule FINDINGS: The procedure was explained to the patient. The risks, complications, benefits and alternatives were discussed and any questions were answered. Informed consent was obtained. Patient was placed supin e on the ultrasound table and prepped and draped in the usual sterile fashion. Utilizing a 25 gauge needle, five passes were made into the requested right thyroid nodule. Patient was stable throughout the procedure. Pathology is pending. All elements of maximal barrier technique were utilized. IMPRESSION: 1. Successful ultrasound guided FNA thyroid biopsy.
[2017-11-11 14:47] VITALS: BP 121/68; PULSE 90
== END 2017-11-11 14:15 | disposition home or self-care (01) ==
LOC: RADPROMAIN 12:17
PROVIDERS: ATTEND Internal Medicine
DX: E04.1 Nontoxic single thyroid nodule (principal)
CPT/HCPCS: 10022; 76942; 88173; 88305

== ENCOUNTER → 2017-11-14 | Outpatient (CLI) | payer OTHER ==
[2017-11-14 12:08] LABS: ALT 26 U/L (9-52); AST 24 U/L (14-36); Anion Gap 9 mmol/L; Blood Urea Nitrogen 22 mg/dL (7-17); C Reactive Protein 6.2 mg/L (<10.0); Calcium 9.1 mg/dL (8.4-10.2); Carbon Dioxide 29 mmol/L (22-30); Chloride 105 mmol/L (98-107); Cholesterol 177 mg/dL (<200); Creatine Kinase 55 U/L (30-135); Glucose 104 mg/dL (74-99); HDL Cholesterol 39 mg/dL (40-60); LDL Cholesterol,Calculated 89 mg/dL (0-99); Magnesium 1.7 mg/dL (1.6-2.3); Phosphorus 3.2 mg/dL (2.5-4.5); Sodium 143 mmol/L (137-145); Triglycerides 245 mg/dL (<150)
== END | disposition home or self-care (01) ==
LOC: LABWHC1 11:16
PROVIDERS: ATTEND Internal Medicine
DX: E78.5 Hyperlipidemia, unspecified (principal); E87.8 Other disorders of electrolyte and fluid balance, not elsewhere classified; E21.3 Hyperparathyroidism, unspecified; J45.909 Unspecified asthma, uncomplicated
CPT/HCPCS: 36415; 80048; 80061; 82306; 82550; 83735; 84100; 84450; 84460; 85652; 86140

== ENCOUNTER → 2018-02-01 | Outpatient (CLI) | payer OTHER ==
--- NOTE | 2018-02-01 16:08 | US ---
EXAMINATION TYPE: US pelvic complete DATE OF EXAM: 02/01/2018 COMPARISON: CT urogram August 18, 2017 CLINICAL HISTORY: R10.2 PELVIC PAIN. Generalized pelvic pain, LMP 7 yrs ago TECHNIQUE: Transabdominal (TA). Transabdominal sonographic images of the pelvis were acquired. Language barrier with patient EXAM MEASUREMENTS: Uterus: 7.5 x 3.6 x 4.5 cm Endometrial Stripe: 0.4 cm Right Ovary: 2.0 x 1.3 x 1.4 cm Left Ovary: 2.0 x 1.2 x 1.2 cm 1. Uterus: Anteverted heterogeneous, small Nabothian cyst in cervix 2. Endometrium: wnl 3. Right Ovary: wnl 4. Left Ovary: wnl 5. Bilateral Adnexa: wnl 6. Posterior cul-de-sac: wnl IMPRESSION: Images saved show no suspicious finding to account for patient's symptoms of pelvic pain.
== END | disposition home or self-care (01) ==
LOC: RADUSWWP 15:41
PROVIDERS: ATTEND Obstetrics & Gynecology
DX: R10.2 Pelvic and perineal pain (principal)
CPT/HCPCS: 76856

== ENCOUNTER → 2018-02-27 | Outpatient (CLI) | payer OTHER ==
[2018-02-27 13:59] LABS: ALT 39 U/L (9-52); AST 28 U/L (14-36); Albumin 3.8 g/dL (3.5-5.0); Alkaline Phosphatase 91 U/L (38-126); Anion Gap 3 mmol/L; Blood Urea Nitrogen 17 mg/dL (7-17); C Reactive Protein 5.2 mg/L (<10.0); Carbon Dioxide 30 mmol/L (22-30); Chloride 107 mmol/L (98-107); Glucose 98 mg/dL (74-99); Magnesium 1.8 mg/dL (1.6-2.3); Phosphorus 3.4 mg/dL (2.5-4.5); Potassium 4.8 mmol/L (3.5-5.1); Sodium 140 mmol/L (137-145); Total Bilirubin 0.3 mg/dL (0.2-1.3); Total Protein 6.8 g/dL (6.3-8.2)
[2018-02-27 18:46] LABS: Parathyroid Hormone Intact 77.2 pg/mL (14.0-72.0)
[2018-02-27 19:07] LABS: Hepatitis A Antibody IgM Non-Reactive (Non-Reactive); Hepatitis B Core IgM Non-Reactive (Non-Reactive)
[2018-02-27 19:27] LABS: DNA Double-Stranded NEGATIVE (NEGATIVE)
[2018-02-27 21:02] LABS: Hemoglobin A1C 5.7 % (4.0-6.0)
== END | disposition home or self-care (01) ==
LOC: LABWHC1 12:16
PROVIDERS: ATTEND Internal Medicine
DX: E03.8 Other specified hypothyroidism (principal)
CPT/HCPCS: 36415; 80053; 80074; 83036; 83735; 83970; 84100; 85652; 86038; 86140; 86225

== ENCOUNTER → 2018-03-06 | Outpatient (CLI) | payer OTHER ==
--- NOTE | 2018-03-07 13:54 | MM ---
Reason for exam: screening (asymptomatic). Last mammogram was performed 5 years and 7 months ago. Physical Findings: A clinical breast exam by your physician is recommended on an annual basis and results should be correlated with mammographic findings. MG 3D Screening Mammo W/Cad Bilateral CC and MLO view(s) were taken. Technologist: Kellee Ivory RT (R)(M) Prior study comparison: July 26, 2012, bilateral digital screening mammo w/CAD. There are scattered fibroglandular densities. No significant changes when compared with prior studies. ASSESSMENT: Benign, BI-RAD 2 RECOMMENDATION: Routine screening mammogram of both breasts in 1 year.
== END | disposition home or self-care (01) ==
LOC: RADMAMWWP 14:05
PROVIDERS: ATTEND Obstetrics & Gynecology
DX: Z12.31 Encounter for screening mammogram for malignant neoplasm of breast (principal)
CPT/HCPCS: 77063; 77067

== ENCOUNTER 2018-03-15 08:52 | Observation (INO) | payer OTHER ==
[2018-03-15] MEDS ORDERED: NITROGLYCERIN OINT 1 INCH/GM PACKET TOPICAL STA (09:26)
[2018-03-15] MEDS ORDERED: ASPIRIN 81 MG PO STA (09:26)
[2018-03-15] MEDS ORDERED: IPRATROPIUM-ALBUTEROL 3 ML NEB INHALATION STA (09:29)
--- NOTE | 2018-03-15 09:29 | ED ---
General Adult HPI - General Chief complaint: Chest Pain Stated complaint: chest pain Time Seen by Provider: 03/15/18 08:55 Source: patient, family, RN notes reviewed Mode of arrival: ambulatory Limitations: language barrier - History of Present Illness Initial comments: This is a 52-year-old female who presents emergency Department with a past medical history of borderline hypertension. Patient states she had chest pain and weak ago and it eventually resolved and last night again she started having chest pain 1:00 in the morning. Patient states the pain comes and goes it's a pressure sensation radiates to her left upper back. Patient states pain comes and goes. Patient denies any diaphoresis. Patient does states she was short of breath when the pain comes. Patient denies any nausea. Patient denies abdominal pain patient denies any vomiting or diarrhea. Patient denies any recent fever chills or cough. Patient denies any previous heart disease. Patient denies any smoking. Patient denies headache patient denies numbness weakness. Patient denies lightheadedness dizziness or nursing blood cell. Patient denies any recent injury or trauma. Patient denies any reproducible pain to palpation. - Related Data Home Medications Medication Instructions Recorded Confirmed Cholecalciferol [Vitamin D3] 1,000 unit PO DAILY 06/05/17 10/31/17 Pantoprazole Sodium 40 mg PO DAILY 11/11/17 11/11/17 Rosuvastatin [Crestor] 20 mg PO DAILY 11/11/17 11/11/17 Previous Rx's Medication Instructions Recorded Ibuprofen [Motrin] 600 mg PO Q6HR PRN #20 tab 06/05/17 Albuterol Nebulized [Ventolin 2.5 mg INHALATION Q6H PRN 10 Days 10/20/17 Nebulized] nebu Benzonatate [Tessalon Perles] 200 mg PO Q8H PRN #15 capsule 10/20/17 Allergies Allergy/AdvReac Type Severity Reaction Status Date / Time No Known Allergies Allergy Verified 03/15/18 08:56 Review of Systems ROS Statement: Those systems with pertinent positive or pertinent negative responses have been documented in the HPI. ROS Other: All systems not noted in ROS Statement are negative. Past Medical History Past Medical History: Asthma, Hyperlipidemia, Renal Disease, Thyroid Disorder Additional Past Medical History / Comment(s): thyroid nodules History of Any Multi-Drug Resistant Organisms: None Reported Past Surgical History: Cholecystectomy Past Anesthesia/Blood Transfusion Reactions: No Reported Reaction Past Psychological History: No Psychological Hx Reported Smoking Status: Never smoker Past Alcohol Use History: None Reported Past Drug Use History: None Reported - Past Family History Father Family Medical History: Unable to Obtain Mother Family Medical History: Unable to Obtain General Exam - General Exam Comments Initial Comments: GENERAL: Patient is well-developed and well-nourished. Patient is nontoxic and well- hydrated and is in mild distress. ENT: Neck is soft and supple. No significant lymphadenopathy is noted. Oropharynx is clear. Moist mucous membranes. Neck has full range of motion without eliciting any pain. EYES: The sclera were anicteric and conjunctiva were pink and moist. Extraocular movements were intact and pupils were equal round and reactive to light. Eyelids were unremarkable. PULMONARY: Patient has an expiratory wheeze CARDIOVASCULAR: There is a regular rate and rhythm without any murmurs gallops or rubs. ABDOMEN: Soft and nontender with normal bowel sounds. No palpable organomegaly was noted. There is no palpable pulsatile mass. SKIN: Skin is clear with no lesions or rashes and otherwise unremarkable. NEUROLOGIC: Patient is alert and oriented x3. Cranial nerves II through XII are grossly intact. Motor and sensory are also intact. Normal speech, volume and content. Symmetrical smile. MUSCULOSKELETAL: Normal extremities with adequate strength and full range of motion. No lower extremity swelling or edema. No calf tenderness. LYMPHATICS: No significant lymphadenopathy is noted PSYCHIATRIC: Normal psychiatric evaluation. Normal interpersonal interactions appears functionally intact in deals appropriately with others. No signs of depression. No signs of anxiety. 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 Patient's EKG shows no ST segment elevation or depression or T wave abnormalities are noted. Chest x-ray shows cardiomegaly Patient did have some intermittent chest pain while in the emergency department. Because the patient's intermittent chest pain I believe the patient was having unstable angina/started the patient on heparin. I spoke with Dr. Hayes agreed to admit the patient admitted patient wrote admitting orders - Lab Data Result diagrams: 03/15/18 09:30 03/15/18 09:30 Lab Results 03/15/18 03/15/18 03/15/18 Range/Units 09:30 09:30 09:30 WBC 4.2 (3.8-10.6) k/uL RBC 4.78 (3.80-5.40) m/uL Hgb 11.6 (11.4-16.0) gm/dL Hct 36.9 (34.0-46.0) % MCV 77.2 L (80.0-100.0) fL MCH 24.2 L (25.0-35.0) pg MCHC 31.4 (31.0-37.0) g/dL RDW 13.0 (11.5-15.5) % Plt Count 209 (150-450) k/uL Neutrophils % 46 % Lymphocytes % 39 % Monocytes % 5 % Eosinophils % 7 % Basophils % 0 % Neutrophils # 1.9 (1.3-7.7) k/uL Lymphocytes # 1.7 (1.0-4.8) k/uL Monocytes # 0.2 (0-1.0) k/uL Eosinophils # 0.3 (0-0.7) k/uL Basophils # 0.0 (0-0.2) k/uL PT (9.0-12.0) sec INR (<1.2) APTT (22.0-30.0) sec Sodium 140 (137-145) mmol/L Potassium 4.4 (3.5-5.1) mmol/L Chloride 106 (98-107) mmol/L Carbon Dioxide 27 (22-30) mmol/L Anion Gap 7 mmol/L BUN 16 (7-17) mg/dL Creatinine 0.59 (0.52-1.04) mg/dL Est GFR (CKD-EPI)AfAm >90 (>60 ml/min/1.73 sqM) Est GFR (CKD-EPI)NonAf >90 (>60 ml/min/1.73 sqM) Glucose 95 (74-99) mg/dL Calcium 8.8 (8.4-10.2) mg/dL Magnesium 1.9 (1.6-2.3) mg/dL Total Bilirubin 0.5 (0.2-1.3) mg/dL AST 26 (14-36) U/L ALT 35 (9-52) U/L Alkaline Phosphatase 86 (38-126) U/L Total Creatine Kinase 79 (30-135) U/L CK-MB (CK-2) 0.5 (0.0-2.4) ng/mL CK-MB (CK-2) Rel Index 0.6 Troponin I <0.012 (0.000-0.034) ng/mL Total Protein 6.7 (6.3-8.2) g/dL Albumin 3.6 (3.5-5.0) g/dL 03/15/18 Range/Units 09:30 WBC (3.8-10.6) k/uL RBC (3.80-5.40) m/uL Hgb (11.4-16.0) gm/dL Hct (34.0-46.0) % MCV (80.0-100.0) fL MCH (25.0-35.0) pg MCHC (31.0-37.0) g/dL RDW (11.5-15.5) % Plt Count (150-450) k/uL Neutrophils % % Lymphocytes % % Monocytes % % Eosinophils % % Basophils % % Neutrophils # (1.3-7.7) k/uL Lymphocytes # (1.0-4.8) k/uL Monocytes # (0-1.0) k/uL Eosinophils # (0-0.7) k/uL Basophils # (0-0.2) k/uL PT 9.9 (9.0-12.0) sec INR 1.0 (<1.2) APTT 24.3 (22.0-30.0) sec Sodium (137-145) mmol/L Potassium (3.5-5.1) mmol/L Chloride (98-107) mmol/L Carbon Dioxide (22-30) mmol/L Anion Gap mmol/L BUN (7-17) mg/dL Creatinine (0.52-1.04) mg/dL Est GFR (CKD-EPI)AfAm (>60 ml/min/1.73 sqM) Est GFR (CKD-EPI)NonAf (>60 ml/min/1.73 sqM) Glucose (74-99) mg/dL Calcium (8.4-10.2) mg/dL Magnesium (1.6-2.3) mg/dL Total Bilirubin (0.2-1.3) mg/dL AST (14-36) U/L ALT (9-52) U/L Alkaline Phosphatase (38-126) U/L Total Creatine Kinase (30-135) U/L CK-MB (CK-2) (0.0-2.4) ng/mL CK-MB (CK-2) Rel Index Troponin I (0.000-0.034) ng/mL Total Protein (6.3-8.2) g/dL Albumin (3.5-5.0) g/dL Critical Care Time Critical Care Time: Yes Total Critical Care Time: 35 Disposition Clinical Impression: Unstable angina pectoris Disposition: ADMITTED IP TO THIS HOSP Is patient prescribed a controlled substance at d/c from ED?: No Referrals: Ismael Hayes MD [Primary Care Provider] - 1-2 days Time of Disposition: 10:31
[2018-03-15 09:47] LABS: Basophils % (A) 0 %; Eosinophils # (A) 0.3 k/uL (0-0.7); Eosinophils % (A) 7 %; HCT 36.9 % (34.0-46.0); HGB 11.6 gm/dL (11.4-16.0); Lymphocytes # (A) 1.7 k/uL (1.0-4.8); Lymphocytes % (A) 39 %; MCH 24.2 pg (25.0-35.0); MCHC 31.4 g/dL (31.0-37.0); MCV 77.2 fL (80.0-100.0); Mean Platelet Volume 6.9; Monocytes # (A) 0.2 k/uL (0-1.0); Monocytes % (A) 5 %; Neutrophils # (A) 1.9 k/uL (1.3-7.7); Neutrophils % (A) 46 %; Platelet Count 209 k/uL (150-450); RBC 4.78 m/uL (3.80-5.40); WBC 4.2 k/uL (3.8-10.6)
[2018-03-15 09:58] LABS: ALT 35 U/L (9-52); AST 26 U/L (14-36); Albumin 3.6 g/dL (3.5-5.0); Alkaline Phosphatase 86 U/L (38-126); Anion Gap 7 mmol/L; Blood Urea Nitrogen 16 mg/dL (7-17); Calcium 8.8 mg/dL (8.4-10.2); Carbon Dioxide 27 mmol/L (22-30); Chloride 106 mmol/L (98-107); Glucose 95 mg/dL (74-99); Magnesium 1.9 mg/dL (1.6-2.3); Potassium 4.4 mmol/L (3.5-5.1); Sodium 140 mmol/L (137-145); Total Bilirubin 0.5 mg/dL (0.2-1.3); Total Protein 6.7 g/dL (6.3-8.2)
[2018-03-15 09:59] LABS: Partial Thromboplastin Time 24.3 sec (22.0-30.0); Prothrombin Time 9.9 sec (9.0-12.0)
--- NOTE | 2018-03-15 10:03 | XR ---
EXAMINATION TYPE: XR chest 2V DATE OF EXAM: 03/15/2018 COMPARISON: 10/20/2017 INDICATION: Chest pain TECHNIQUE: Frontal and lateral views of the chest are obtained. FINDINGS: The heart size is mildly prominent. The pulmonary vasculature is normal. The lungs are clear. IMPRESSION: 1. Mild stable cardiomegaly
[2018-03-15 10:13] LABS: Creatine Kinase 79 U/L (30-135)
[2018-03-15 10:26] LABS: Creatine Kinase MB 0.5 ng/mL (0.0-2.4); Troponin I <0.012 ng/mL (0.000-0.034)
[2018-03-15] MEDS ORDERED: NITROGLYCERIN SL TABS 0.4 MG TAB SUBLINGUAL PRN (10:33)
--- NOTE | 2018-03-15 11:40 | P.CRDCN ---
History of Present Illness History of present illness: Mrs. Martinez is a pleasant 52-year-old female past medical history significant for dyslipidemia and asthma. There is a language barrier, her son is here translating. She denies history of coronary artery disease or hypertension. She states last week she felt a heavy pressure in her chest in the precordial region that came at rest with no radiation and no other associated symptoms. The pain persisted for approximately 3 hours with no specific alleviating factors. Then again last night around 0100 she felt a similar pain in the left precordial region with no radiation to the arms, back, neck or jaw. She felt mildy short of breath as well. Denies exertional dyspnea. She denies palpitations, dizziness, nausea, vomiting or diaphoresis. The pressure is still there mildly at this time and is non-reproducible and not worse with deep inspiration. EKG reveals sinus mechanism with no acute ST or T-wave abnormalities. Chest xray negative for an acute cardiopulmonary process. Laboratory data reviewed, hemoglobin 11.6, platelets 209, sodium 140, potassium 4.4, magnesium 1.9, creatinine 0.59, cardiac enzymes negative 1. Current cardiac medications include rosuvastatin 20 mg daily. She also takes pantoprazole and Ventolin when necessary. Most recent echocardiogram performed 2013 reveals preserved left ventricular systolic function with ejection fraction 55-60%. At that time she also underwent a Lexiscan stress test which was negative for reversible cardiac ischemia. Review of Systems At the time of my exam: CONSTITUTIONAL: Denies fever. Denies chills. EYES: Denies blurred vision. Denies vision changes. Denies eye pain. EARS, NOSE, MOUTH & THROAT: Denies headache. Denies sore throat. Denies ear pain. CARDIOVASCULAR: Ongoing mild chest pain. Denies shortness of breath. Denies orthopnea. Denies PND. Denies palpitations. RESPIRATORY: Denies cough. GASTROINTESTINAL: Denies abdominal pain. Denies diarrhea. Denies constipation. Denies nausea. Denies vomiting. MUSCULOSKELETAL: Denies myalgias. INTEGUMENTARY: Denies pruitis. Denies rash. NEUROLOGIC: Denies numbness. Denies tingling. Denies weakness. PSYCHIATRIC: Denies anxiety. Denies depression. ENDOCRINE: Denies fatigue. Denies weight change. Denies polydipsia. Denies polyurina. GENITOURINARY: Denies burning, hematuria or urgency with micturation. HEMATOLOGIC: Denies history of anemia. Denies bleeding. Past Medical History Past Medical History: Asthma, Hyperlipidemia, Renal Disease, Thyroid Disorder Additional Past Medical History / Comment(s): thyroid nodules History of Any Multi-Drug Resistant Organisms: None Reported Past Surgical History: Cholecystectomy Past Anesthesia/Blood Transfusion Reactions: No Reported Reaction Past Psychological History: No Psychological Hx Reported Smoking Status: Never smoker Past Alcohol Use History: None Reported Past Drug Use History: None Reported - Past Family History Father Family Medical History: Unable to Obtain Mother Family Medical History: Unable to Obtain Medications and Allergies Home Medications Medication Instructions Recorded Confirmed Type Cholecalciferol [Vitamin D3] 1,000 unit PO DAILY 06/05/17 03/15/18 History Pantoprazole Sodium 40 mg PO DAILY 11/11/17 03/15/18 History Rosuvastatin [Crestor] 20 mg PO HS 11/11/17 03/15/18 History Albuterol Inhaler [Ventolin Hfa 1 - 2 puff INHALATION RT-Q6H PRN 03/15/18 History Inhaler] Allergies Allergy/AdvReac Type Severity Reaction Status Date / Time No Known Allergies Allergy Verified 03/15/18 10:37 Physical Exam Vitals: Vital Signs Temp Pulse Pulse Resp BP Pulse Ox 03/15/18 10:30 75 18 141/70 97 03/15/18 09:44 75 03/15/18 09:39 74 03/15/18 09:36 86 18 147/86 98 03/15/18 09:25 81 03/15/18 08:53 97.9 F 70 18 148/93 96 Intake and Output 03/14/18 03/15/18 03/15/18 22:59 06:59 14:59 Other: Weight 86.183 kg Blood pressure 141/70 heart rate 75 afebrile maintaining oxygen saturation on room air GENERAL: This is a 52-year-old female in no apparent distress at the time of my examination. Obese. HEENT: Head is atraumatic, normocephalic. Pupils are equal, round. Sclerae anicteric. Conjunctivae are clear. Mucous membranes of the mouth are moist. Neck is supple. There is no jugular venous distention. No carotid bruit is heard. LUNGS: Expiratory wheezes noted. No rales or rhonchi. No chest wall tenderness is noted on palpation or with deep breathing. HEART: Regular rate and rhythm without murmurs, rubs or gallops. S1 and S2 heard. ABDOMEN: Soft, nontender. Bowel sounds are heard. No organomegaly noted. EXTREMITIES: No evidence of peripheral edema and no calf tenderness noted. VASCULAR: Radial and dorsalis pedis pulses palpated, no evidence of clubbing. NEUROLOGIC: Patient is awake, alert and oriented x3. Results 03/15/18 09:30 03/15/18 09:30 Cardiac Enzymes 03/15/18 03/15/18 Range/Units 09:30 09:30 AST 26 (14-36) U/L CK-MB (CK-2) 0.5 (0.0-2.4) ng/mL Troponin I <0.012 (0.000-0.034) ng/mL Coagulation 03/15/18 Range/Units 09:30 PT 9.9 (9.0-12.0) sec APTT 24.3 (22.0-30.0) sec CBC 03/15/18 Range/Units 09:30 WBC 4.2 (3.8-10.6) k/uL RBC 4.78 (3.80-5.40) m/uL Hgb 11.6 (11.4-16.0) gm/dL Hct 36.9 (34.0-46.0) % Plt Count 209 (150-450) k/uL Comprehensive Metabolic Panel 03/15/18 Range/Units 09:30 Sodium 140 (137-145) mmol/L Potassium 4.4 (3.5-5.1) mmol/L Chloride 106 (98-107) mmol/L Carbon Dioxide 27 (22-30) mmol/L BUN 16 (7-17) mg/dL Creatinine 0.59 (0.52-1.04) mg/dL Glucose 95 (74-99) mg/dL Calcium 8.8 (8.4-10.2) mg/dL AST 26 (14-36) U/L ALT 35 (9-52) U/L Alkaline Phosphatase 86 (38-126) U/L Total Protein 6.7 (6.3-8.2) g/dL Albumin 3.6 (3.5-5.0) g/dL Current Medications Generic Name Dose Route Start Last Admin Trade Name Freq PRN Reason Stop Dose Admin Aspirin 325 mg 03/16/18 09:00 Aspirin PO DAILY MAT Nitroglycerin 1 inch 03/15/18 12:00 Nitro-Bid Oint TOPICAL Q6HR MAT Nitroglycerin 0.4 mg 03/15/18 10:33 Nitrostat SUBLINGUAL Q5M PRN Chest Pain Intake and Output 03/14/18 03/15/18 03/15/18 22:59 06:59 14:59 Other: Weight 86.183 kg Patient Weight 03/16/18 06:59 Weight 86.183 kg 03/15/18 09:30 03/15/18 09:30 Assessment and Plan Assessment: ASSESSMENT Chest pain, atypical. History of asthma, currently wheezing Dyslipidemia, maintained on rosuvastatin PLAN Continue to obtain serial cardiac enzymes to rule out an acute coronary event. Resume rosuvastatin and change aspirin to 81 mg. Obtain 2-D echocardiogram and Doppler study to assess cardiac structure and function. Repeat breathing treatment should be considered for ongoing wheezing. Discussion was had with the patient and her son at the bedside and we have recommended she stay in the hospital for stress testing in the morning. She verbalized she would like to go home and follow up as an outpatient. This can be discussed with her PCP, Dr. Hayes, and determination can be made by him once an acute event has been ruled out if her symptoms have resolved. Thank you kindly for this consultation. Nurse Practitioner note has been reviewed, I agree with a documented findings and plan of care. Patient was seen and examined.
--- NOTE | 2018-03-15 16:08 | P.HPIM ---
History of Present Illness H&P Date: 03/15/18 (Chest pain) Chief Complaint: Chest pain not clearly expressed due to patient language. This dictation history and physical. Patient admitted on observation status with the chest pain, normal EKG, normal chest x-ray, cardiac panel so far is normal. Chief complaint: Patient complain of left precordial chest pain with a feeling of a poking as well. Started at 1 AM and associated with palpitation. No radiation to the neck or the left arm. Cardiology Patient came to the emergency room seen by Dr. Pruett ER physician, admitted on observation with the consultation with Dr. DE SANTIAGO cardiology. Patient admitted with intermediate coronary artery disease, monitored, repeat cardiac panel, repeat EKG, and the stress test in the morning. History of present 52 years old white female presented to the ER with the chest pain was questionable atypical with the presence of a poking however no radiation to the neck or the left arm or shoulder. Patient stated that she had palpitation. Past medical history #1 hyper lipidemia #2 GERD disease #3 asthma with intermittent exacerbation. # 4 macrocytosis #5 hepatosplenomegaly with the possibility of Munoz. #6 cardiomegaly by the chest x-ray. #7 hypertension is controlled. #8 intermittent palpitation with no evidence of atrial fibrillation . Right thyroid gland nodule status post aspiration on 11/11/2017 in neck and with the results benign follicular nodule colloid nodule. Which was selectively 1.2 cm. Plan #10 mammogram screen 03/06/2018 was negative #11 non- GFR more than 90 on 02/27/2018 with normal calcium and phosphorus and magnesium. # 12 negative hepatitis A and B and C #13 mild elevation of parathyroid hormone with normal scan. #13 normal ANAs and DNA double stranded with presence of arthralgia #14 no evidence of diabetes mellitus2 with the recent hemoglobin A1c 5.7 and average glucose 117. On 02/27/2018. ALLERGY unknown. Habits: #1 nonsmoker #2 non-alcohol drinker. Family history: 9 para 9 and 9. 6 children male and 3 children female currently grown-up. Review of system: Psychiatry negative no anxiety or depression. Neurologically no history of a stroke in the past. Cardiac: Recurrent chest pain precordial with intermittent palpitation. Lung history of asthma intermittent exacerbation but stable. GI: History of irritable bowel syndrome intermittent,, guarded disease. Endocrine: Hyper lipidemia. On Crestor. Genitourinary: No dysuria or hematuria. Musculoskeletal: History of arthralgia, and osteoarthritis with negative for autoimmune disease. Ambulation: Able to walk without executive sales assistant normally. Laboratories: Troponin 1 less than 0.012, normal liver enzyme, glucose 95 normal, electrolytes also normal with a potassium 4.4 and sodium 140. His hemoglobin 11.6, she has Microcytosis , platelet count 209 normal, white count 4.2. Chest x-ray is normal, EKG normal, troponin was normal on admission from the ER . On exam [id number]: Vital sign temperature 98.5 pulse is 78/m, respiratory rate 18 and blood pressure 120/60 with a mean 84, oxygen saturation 96% on 2 L nasal cannula. Head was normocephalic and atraumatic, pupil is equal reactive to light and accommodation, normal hearing bilaterally, no was negative with no rhinitis. Pharynx natural teeth, normal tongue, no fascial asymmetry. Neck was supple no JVD no thyromegaly no lymphadenopathy trachea midline. Chest was clear to auscultation and percussion no wheezes nor rhonchi's, with a history of asthma we will start her on DuoNeb. Heart is PMI in the fifth intercostal space normal S1 and S2 no gallop, minimal intercostaltenderness. Abdomen: Soft positive bowel sounds no organ enlargement with a history of fatty liver. Extremities no edema and positive pulses good perfusion and no ischemic changes. Neurological examination: No lateralizing sign with normal reflexes, no cranial nerve abnormalities. Assessment: Chest pain new-onset precordial with the at typical features. Hyperlipidemia. GERD disease Asthma chronic and not active. Macrocytosis with the possibility of a beta thalassemia and borderline anemia. Plan: Patient admitted on observation status, seen by Dr. mohan rivera tire mold engraver and his PA. With the plan for a stress test tomorrow, and monitoring her cardiac panel and EKG and she is on telemetry. Starting her on inhalation therapy for the asthma. CBC with differential, iron study, hemoglobin electrophoresis. Farther investigation or treatment dependent and the patient condition Past Medical History Past Medical History: Asthma, GERD/Reflux, Hyperlipidemia, Renal Disease, Thyroid Disorder Additional Past Medical History / Comment(s): thyroid nodules-benign, UTIs and recent UTI treated with antibiotic. History of Any Multi-Drug Resistant Organisms: None Reported Past Surgical History: Cholecystectomy Additional Past Surgical History / Comment(s): EGD, colonoscopy, R cataract removed, thyroid biopsy. Past Anesthesia/Blood Transfusion Reactions: No Reported Reaction Smoking Status: Never smoker - Past Family History Father Family Medical History: No Reported History Additional Family Medical History / Comment(s): Pt states father was healthy and at the age of 75yrs from old age. Mother Family Medical History: No Reported History Additional Family Medical History / Comment(s): Pt reports that mother was healthy and in her 60s d/t old age. Medications and Allergies Home Medications Medication Instructions Recorded Confirmed Type Cholecalciferol [Vitamin D3] 1,000 unit PO DAILY 06/05/17 03/15/18 History Pantoprazole Sodium 40 mg PO DAILY 11/11/17 03/15/18 History Rosuvastatin [Crestor] 20 mg PO HS 11/11/17 03/15/18 History Albuterol Inhaler [Ventolin Hfa 1 - 2 puff INHALATION RT-Q6H PRN 03/15/18 History Inhaler] Allergies Allergy/AdvReac Type Severity Reaction Status Date / Time No Known Allergies Allergy Verified 03/15/18 10:37 Physical Exam Vitals: Vital Signs Temp Pulse Pulse Resp BP Pulse Ox 03/15/18 15:06 98.5 F 78 18 120/60 96 03/15/18 12:47 74 18 131/61 98 03/15/18 10:30 75 18 141/70 97 03/15/18 09:44 75 03/15/18 09:39 74 03/15/18 09:36 86 18 147/86 98 03/15/18 09:25 81 03/15/18 08:53 97.9 F 70 18 148/93 96 Intake and Output 03/15/18 03/15/18 03/15/18 06:59 14:59 22:59 Other: Weight 86.183 kg Results CBC & Chem 7: 03/15/18 09:30 03/15/18 09:30 Labs: Abnormal Lab Results - Last 24 Hours (Table) 03/15/18 Range/Units 09:30 MCV 77.2 L (80.0-100.0) fL MCH 24.2 L (25.0-35.0) pg Thrombosis Risk Factor Assmnt - Choose All That Apply Any of the Below Risk Factors Present?: Yes Each Factor Represents 1 point: Age 41-60 years, Obesity (BMI >25) Other Risk Factors: No Other congenital or acquired thrombophilia - If yes, enter type in comment: No Thrombosis Risk Factor Assessment Total Risk Factor Score: 2 Thrombosis Risk Factor Assessment Level: Low Risk
[2018-03-15 16:10] LABS: Creatine Kinase 72 U/L (30-135)
[2018-03-15 16:20] LABS: Creatine Kinase MB 0.5 ng/mL (0.0-2.4)
[2018-03-15 16:24] LABS: Troponin I <0.012 ng/mL (0.000-0.034)
[2018-03-15] MEDS: NITROGLYCERIN OINT 1 INCH/GM PACKET TOPICAL SCH ×3 (17:32→23:03)
[2018-03-15] MEDS: IPRATROPIUM-ALBUTEROL 3 ML NEB INHALATION SCH ×2 (17:48→20:56)
[2018-03-15] MEDS: CHOLECALCIFEROL 1,000 UNIT TAB PO SCH (18:00)
[2018-03-15] MEDS: ACETAMINOPHEN TAB 325 MG TAB PO PRN (18:01)
[2018-03-15] MEDS: NAPROXEN 250 MG TAB PO SCH (20:05)
[2018-03-15] MEDS ORDERED: ATORVASTATIN 40 MG TAB PO SCH (21:00)
[2018-03-15 21:52] LABS: Creatine Kinase 64 U/L (30-135)
[2018-03-15 22:03] LABS: Creatine Kinase MB 0.5 ng/mL (0.0-2.4); Troponin I <0.012 ng/mL (0.000-0.034)
[2018-03-16] MEDS ORDERED: MAG HYDROX/AL HYDROX/SIMETH 30 ML CUP PO PRN (01:42)
[2018-03-16] MEDS: ACETAMINOPHEN TAB 325 MG TAB PO PRN (01:49)
[2018-03-16 01:58] LABS: Iron Saturation 10.67 (12.00-45.00)
[2018-03-16] MEDS: NITROGLYCERIN OINT 1 INCH/GM PACKET TOPICAL SCH (04:04)
[2018-03-16 05:43] LABS: Cholesterol 169 mg/dL (<200); HDL Cholesterol 32 mg/dL (40-60); LDL Cholesterol,Calculated 81 mg/dL (0-99); Triglycerides 279 mg/dL (<150)
[2018-03-16] MEDS: IPRATROPIUM-ALBUTEROL 3 ML NEB INHALATION SCH ×2 (07:09→10:51)
[2018-03-16] MEDS ORDERED: DOBUTamine DRIP for NUC MED 500 MG in DEXTROSE/WATER 1 250ML.BAG IV ONE (08:47)
[2018-03-16] MEDS ORDERED: ASPIRIN 81 MG PO SCH (09:00)
[2018-03-16] MEDS ORDERED: ASPIRIN 325 MG TAB PO SCH (09:00)
[2018-03-16 09:03] VITALS: BP 116/77; PULSE 70; RESP 16; TEMP 97.8
[2018-03-16] MEDS ORDERED: ATROPINE SULFATE 0.1 MG/ML 10ML SYRINGE ONE (12:17)
--- NOTE | 2018-03-16 12:32 | ECHOF ---
Referral Reason:Chest pain MEASUREMENTS -------- HEIGHT: 162.6 cm WEIGHT: 86.2 kg BP: IVSd: 1.3 cm (0.6 - 1.1) LVIDd: 4.1 cm (3.9 - 5.3) LVPWd: 1.1 cm (0.6 - 1.1) IVSs: 1.6 cm LVIDs: 3.4 cm LVPWs: 1.2 cm LA Diam: 3.2 cm (2.7 - 3.8) LAESV Index (A-L): 27.88 ml/m Ao Diam: 3.0 cm (2.0 - 3.7) AV Cusp: 1.6 cm (1.5 - 2.6) LA Diam: 2.9 cm (2.7 - 3.8) EPSS: 1.2 cm MV E Hebert: 0.84 m/s MV DecT: 205 ms MV A Hebert: 0.68 m/s MV E/A Ratio: 1.22 RAP: 5.00 mmHg RVSP: 33.60 mmHg MV EF SLOPE: 162.06 mm/s (70 - 150) MV EXCURSION: 2.48 cm (> 18.000) FINDINGS -------- Sinus rhythm. This was a technically good study. LV size, wall thickness and systolic function are normal, with an EF greater than 55%. The left naima tricular size is normal. The right ventricle is normal in size. The left atrial size is normal. The right atrial size is normal. The aortic valve is trileaflet, and appears structurally normal. No aortic stenosis or regurgitation. The mitral valve is normal. Mild mitral regurgitation is present. Mild tricuspid regurgitation present. There is no evidence of pulmonary hypertension. The right v entricular systolic pressure, as measured by Doppler, is 33.60mmHg. There is no pulmonic regurgitation present. The aortic root size is normal. There is no pericardial effusion. CONCLUSIONS -------- 1. Sinus rhythm. 2. LV size, wall thickness and systolic function are normal, with an EF greater than 55%. 3. The left ventricular size is normal. 4. The left atrial size is normal. 5. The aortic valve is trileaflet, and appears structurally normal. No aortic stenosis or regurgitati on. 6. Mild mitral regurgitation is present. 7. Mild tricuspid regurgitation present. 8. There is no evidence of pulmonary hypertension. 9. There is no pulmonic regurgitation present. 10. The aortic root size is normal. 11. There is no pericardial effusion. [employer] TEAM LEAD: Ivelisse Yarbrough RDCS
--- NOTE | 2018-03-16 12:49 | P.PN ---
Subjective Mrs. Martinez is seen and examined in no acute distress. Cardiac enzymes negative x3, LDL 81. Repeat EKG reveals sinus mechanism, telemetry tracings unremarkable. Echocardiogram revealed preserved left ventricular systolic function with ejection fraction 55%, mild MR and mild TR noted. Intermittent ongoing symptoms of chest discomfort described as burning sensation. Blood pressure 116/77 heart rate 70 afebrile and maintaining oxygen saturation on room air. Objective - Vital Signs Vital signs: Vital Signs Temp 97.8 F 03/16/18 08:00 Pulse 70 03/16/18 08:00 Resp 16 03/16/18 08:00 BP 116/77 03/16/18 08:00 Pulse Ox 97 03/16/18 08:00 Intake & Output 03/15/18 03/16/18 03/16/18 18:59 06:59 18:59 Intake Total 600 Balance 600 Weight 87.6 kg Intake: Oral 600 Other: # Voids 2 1 - Exam GENERAL: Well-appearing, well-nourished and in no acute distress. NECK: Supple without JVD or thyromegaly. LUNGS: Breath sounds clear to auscultation bilaterally. Respiration equal and unlabored. No wheezes, rales or rhonchi. HEART: Regular rate and rhythm without murmurs, rubs or gallops. S1 and S2 heard. EXTREMITIES: Normal range of motion, no edema. No clubbing or cyanosis. Peripheral pulses intact. - Labs CBC & Chem 7: 03/15/18 09:30 03/15/18 09:30 Labs: Abnormal Lab Results - Last 24 Hours (Table) 03/15/18 03/15/18 Range/Units 09:30 15:33 Iron 35 L (50-170) ug/dL Iron Saturation 10.67 L (12.00-45.00) Triglycerides 279 H (<150) mg/dL HDL Cholesterol 32 L (40-60) mg/dL Assessment and Plan Assessment: ASSESSMENT Chest pain, atypical. History of asthma Dyslipidemia, maintained on rosuvastatin PLAN Dobutamine stress echocardiogram was obtained and is negative for stress induced ischemia. Stable from a cardiac perspective. Ongoing medical management per primary care team. Follow up with Dr. Lowry in 2-3 weeks. Nurse Practitioner note has been reviewed, I agree with a documented findings and plan of care. Patient was seen and examined.
--- NOTE | 2018-03-16 13:13 | ECHOS ---
STRESS ECHOCARDIOGRAM DATE OF SERVICE: 03/16/2018 INDICATIONS: Chest pain. MEDICATIONS: BASELINE HEART RATE: 78 BASELINE BLOOD PRESSURE: 115/72 MAXIMUM HEART RATE: 159 MAXIMUM BLOOD PRESSURE: 188/56 85% MPHR: 145 100% MPHR: 170 METS: MAXIMUM STAGE REACHED: TOTAL EXERCISE TIME: CLINICAL INFORMATION: Baseline rhythm is sinus mechanism, rate of 78, normal axis and intervals, normal electrocardiogram. Baseline blood pressure 115/72 mmHg. Patient received an infusion of dobutamine per protocol and 0.5 mg of atropine at peak infusion. Peak rate 159 beats per minute which is equal to 92% maximum predicted heart rate. Peak blood pressure 188/56 mmHg. Electrocardiograph monitoring revealed rare PVCs there was no evidence of diagnostic ischemic ST deviation. Baseline echocardiogram revealed normal wall motion. At peak exercise, there was normal wall motion augmentation with no hypokinesis or dyskinesis. CONCLUSION: 1. Normal electrocardiograph response to dobutamine infusion. 2. Normal stress echocardiogram with no evidence of stress induced ischemia. MMODL / IJN: [id number] /
[2018-03-16] MEDS: CHOLECALCIFEROL 1,000 UNIT TAB PO SCH (14:12)
[2018-03-16] MEDS: NAPROXEN 250 MG TAB PO SCH (14:12)
--- NOTE | 2018-03-16 14:31 | P.DS ---
Providers Date of admission: 03/15/18 10:42 Expected date of discharge: 03/16/18 Attending physician: Ismael Hayes Consults: 03/15/18 10:33 Consult Physician Urgent Consulting Provider: [facility] Consult Reason/Comments: Unstable angina Do you want consulting provider notified?: Yes Seen by current by cardiology and release patient for discharge and follow-up by Dr. Lowry. Primary care physician: Ismael Hayes Dictation discharge from observation cleared by cardiology. Final diagnosis: Chest pain atypical, #2 echo stress test was negative, troponin 3 is normal, EKG no clear abnormalities. #3 anemia with microcytosis associated with iron deficiency anemia. #4 beta thalassemia has been removed from the diagnosis with the hemoglobin electrophoresis was negative results. #5 dyslipidemia with the abnormal triglyceride, abnormal HDL, she is on statin therapy, LDL 81, total cholesterol 169. #6 echocardiogram done on admission 03/15/2018, indicate ejection fraction more than 55%, sinus rhythm, mitral regurg mild, tricuspid regurg mild, and no aortic stenosis or aortic regurgitation. And right ventricular systolic pressure 73.6 mmHg by Doppler. Patient presentation to the emergency room: She had a chest pain left precordial started at 1 a.m. on 03/15/2018 and was recurrent with intermittent palpitation and poking feeling. Patient admitted for observation and consultation with cardiology. Hospital course: During the night no recurrent chest pain, underwent echo stress test which was negative without complain, or EKG changes. Laboratory was reviewed with normal troponin I and normal EKG and normal exercise echo stress test. [id number] examination on discharge: Patient expressed that she feeling fine no chest pain, her family at bedside, discussed the current plan and discharged home today in a stable general condition. HEENT was negative, neck was supple no JVD Chest was clear to auscultation and percussion no acute asthma exacerbation. Heart regular sinus rhythm compensated with the ejection fraction of more than 55 and murmur of valvular disease. Abdomen obese positive bowel sounds no organ enlargement. Extremities: No edema and positive pulses Neurologically: Stable no lateralizing sign, cranial nerves is intact no tremors or ataxia. Assessment stable general condition for discharge home, continue the current medication. Start her on iron supplement with the underlying macrocytic hypochromic anemia. With the ferrous sulfate 325 mg twice a day with food. Continue home medication. Plan - Discharge Summary Discharge Rx Participant: No New Discharge Prescriptions: No Action Cholecalciferol [Vitamin D3] 1,000 unit PO DAILY Pantoprazole Sodium 40 mg PO DAILY Rosuvastatin [Crestor] 20 mg PO HS Albuterol Inhaler [Ventolin Hfa Inhaler] 1 - 2 puff INHALATION RT-Q6H PRN PRN Reason: Shortness Of Breath Discharge Medication List Cholecalciferol [Vitamin D3] 1,000 unit PO DAILY 06/05/17 [History] Pantoprazole Sodium 40 mg PO DAILY 11/11/17 [History] Rosuvastatin [Crestor] 20 mg PO HS 11/11/17 [History] Albuterol Inhaler [Ventolin Hfa Inhaler] 1 - 2 puff INHALATION RT-Q6H PRN [History] Follow up Appointment(s)/Referral(s): Adriana Lowry MD [STAFF PHYSICIAN] - 3 Weeks Ismael Hayes MD [Primary Care Provider] - 1-2 days Patient Instructions/Handouts: Chest Pain (DC)
== END 2018-03-16 14:50 | disposition home or self-care (01) ==
LOC: EC 08:52 → 3OBS 10:42
PROVIDERS: ADMIT Internal Medicine; ATTEND Internal Medicine
DX: R07.89 Other chest pain (principal); R00.2 Palpitations; J45.20 Mild intermittent asthma, uncomplicated; E78.5 Hyperlipidemia, unspecified; R03.0 Elevated blood-pressure reading, without diagnosis of hypertension; K21.9 Gastro-esophageal reflux disease without esophagitis; E04.2 Nontoxic multinodular goiter; N28.9 Disorder of kidney and ureter, unspecified; D50.9 Iron deficiency anemia, unspecified; M19.90 Unspecified osteoarthritis, unspecified site; D75.89 Other specified diseases of blood and blood-forming organs; R16.2 Hepatomegaly with splenomegaly, not elsewhere classified; E66.9 Obesity, unspecified; Z68.33 Body mass index [BMI] 33.0-33.9, adult; Z79.899 Other long term (current) drug therapy; Z90.49 Acquired absence of other specified parts of digestive tract; Z87.440 Personal history of urinary (tract) infections; Z98.41 Cataract extraction status, right eye
CPT/HCPCS: 99291 ×2; 36415; 94640 ×3; 93005; 93306; 93351; 80061; 80053; 82550; 82553; 83021; 83540; 83550; 83735; 84484; 85025; 85610; 85730; 71046; G0378 ×2; J1250; J0461

== ENCOUNTER → 2018-07-20 | Outpatient (CLI) | payer OTHER ==
[2018-07-20 14:00] LABS: Basophils % (A) 0 %; Eosinophils # (A) 0.1 k/uL (0-0.7); Eosinophils % (A) 1 %; HCT 42.2 % (34.0-46.0); HGB 13.3 gm/dL (11.4-16.0); Hypochromasia Slight; Lymphocytes % (A) 33 %; MCH 24.6 pg (25.0-35.0); MCHC 31.4 g/dL (31.0-37.0); MCV 78.3 fL (80.0-100.0); Mean Platelet Volume 6.7; Monocytes # (A) 0.4 k/uL (0-1.0); Monocytes % (A) 4 %; Neutrophils # (A) 5.7 k/uL (1.3-7.7); Neutrophils % (A) 61 %; Platelet Count 302 k/uL (150-450); RBC 5.39 m/uL (3.80-5.40); RDW 13.5 % (11.5-15.5); WBC 9.3 k/uL (3.8-10.6)
[2018-07-20 15:41] LABS: Erythrocyte Sedimentation Rate 15 mm/hr (0-20)
[2018-07-20 18:46] LABS: Vitamin D 25 Hydroxy 15.4 ng/mL (30.0-100.0)
[2018-07-20 18:55] LABS: ALT 48 U/L (8-44); AST 19 U/L (13-35); Alkaline Phosphatase 113 U/L (41-126); C Reactive Protein <0.4 mg/dL (0.0-0.8); Calcium 8.6 mg/dL (8.7-10.3); Carbon Dioxide 30.7 mmol/L (21.6-31.8); Chloride 101 mmol/L (96-109); Cholesterol 322 mg/dL (0-200); Creatine Kinase 40 U/L (26-186); Globulin 2.5 g/dL (1.6-3.3); Glucose 89 mg/dL (70-110); Phosphorus 3.4 mg/dL (2.4-5.1); Potassium 4.5 mmol/L (3.5-5.5); Sodium 138 mmol/L (135-145); Total Bilirubin 0.4 mg/dL (0.3-1.2); Total Protein 6.5 g/dL (6.2-8.2); Uric Acid 3.7 mg/dL (2.9-7.7)
[2018-07-20 21:37] LABS: Hemoglobin A1C 6.2 % (4.0-6.0)
== END | disposition home or self-care (01) ==
LOC: LABWHC1 13:22
PROVIDERS: ATTEND Internal Medicine
DX: E78.5 Hyperlipidemia, unspecified (principal); E21.3 Hyperparathyroidism, unspecified; I10 Essential (primary) hypertension; J06.9 Acute upper respiratory infection, unspecified; J45.909 Unspecified asthma, uncomplicated; J44.9 Chronic obstructive pulmonary disease, unspecified; E66.9 Obesity, unspecified
CPT/HCPCS: 36415; 80053; 80061; 82306; 82550; 83036; 83735; 83970; 84100; 84443; 84550; 85025; 85652; 86140

== ENCOUNTER → 2018-07-26 | Outpatient (CLI) | payer OTHER ==
--- NOTE | 2018-07-26 12:32 | XR ---
EXAMINATION TYPE: XR chest 2V DATE OF EXAM: 07/26/2018 COMPARISON: 03/15/2018 HISTORY: Cough, congestion, clinical diagnosis of bronchitis. TECHNIQUE: Frontal and lateral views of the chest are obtained. FINDINGS: There is no focal air space opacity, pleural effusion, or pneumothorax seen. The cardiac silhouette size is within normal limits. The osseous structures are intact. Cholecystectomy clips a re noted in the right upper quadrant. IMPRESSION: No acute cardiopulmonary process.
== END | disposition home or self-care (01) ==
LOC: RADXRMAIN 11:51
PROVIDERS: ATTEND Internal Medicine
DX: J40 Bronchitis, not specified as acute or chronic (principal)
CPT/HCPCS: 71046

== ENCOUNTER 2018-08-04 03:42 | Emergency (ER) | payer OTHER ==
[2018-08-04] MEDS ORDERED: ONDANSETRON 4 MG/2 ML VIAL IVP STA (04:26)
[2018-08-04] MEDS ORDERED: MORPHINE SULFATE 4 MG/ML SYRINGE IV STA (04:26)
[2018-08-04 04:28] LABS: Appearance,Urine Clear (Clear); Basophils % (A) 0 %; Bilirubin,Urine Negative (Negative); Blood,Urine Negative (Negative); Color,Urine Yellow; Eosinophils # (A) 0.2 k/uL (0-0.7); Eosinophils % (A) 3 %; Glucose,Urine (UA) Negative (Negative); HCT 40.8 % (34.0-46.0); HGB 12.7 gm/dL (11.4-16.0); Ketones,Urine Negative (Negative); Leukocyte Esterase,Urine Small (Negative); Lymphocytes # (A) 2.1 k/uL (1.0-4.8); Lymphocytes % (A) 43 %; MCH 24.7 pg (25.0-35.0); MCV 79.7 fL (80.0-100.0); Mean Platelet Volume 6.7; Monocytes # (A) 0.2 k/uL (0-1.0); Monocytes % (A) 4 %; Mucus,Urine Rare /hpf; Neutrophils # (A) 2.3 k/uL (1.3-7.7); Neutrophils % (A) 46 %; Nitrite,Urine Negative (Negative); Platelet Count 206 k/uL (150-450); Protein,Urine Negative (Negative); RBC 5.12 m/uL (3.80-5.40); RBC,Urine 3 /hpf (0-5); RDW 13.8 % (11.5-15.5); Specific Gravity,Urine 1.015 (1.001-1.035); Squamous Epithelial Cell,Urine 1 /hpf (0-4); Urobilinogen,Urine <2.0 mg/dL (<2.0); WBC,Urine 5 /hpf (0-5)
--- NOTE | 2018-08-04 04:30 | ED ---
Abdominal Pain HPI - General Source: family Mode of arrival: wheelchair Limitations: language barrier - History of Present Illness MD Complaint: abdominal pain Onset/Timin -: hour(s) Location: diffuse Migration to: no migration Severity: moderate Quality: other (Unable to characterize) Consistency: colicky Improves With: nothing Worsens With: nothing Associated Symptoms: nausea, vomiting <Aydin Gunter - Last Filed: 08/04/18 07:32> <Elver Ordoñez - Last Filed: 08/04/18 08:23> - General Chief Complaint: Abdominal Pain Stated Complaint: Vomiting, headache Time Seen by Provider: 08/04/18 03:55 - History of Present Illness Initial Comments: Patient is 52-year-old woman presenting to be evaluated for abdominal pain as well as some headache, that developed shortly after 7 PM. 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 Patient indicated that abdominal pain and nausea started first area she indicates diffusely throughout the abdomen. She is not able to characterize the pain well. She had not noted anything that seem to make the pain better or worse. She did note that it seemed to be colicky. After. Time she also had some posterior headache. Not worst headache of life. No neurologic symptoms. No fever or chills. No neck stiffness. (Aydin Gunter) - Related Data Home Medications Medication Instructions Recorded Confirmed Cholecalciferol [Vitamin D3] 1,000 unit PO DAILY 06/05/17 03/15/18 Pantoprazole Sodium 40 mg PO DAILY 11/11/17 03/15/18 Rosuvastatin [Crestor] 20 mg PO HS 11/11/17 03/15/18 Albuterol Inhaler [Ventolin Hfa 1 - 2 puff INHALATION RT-Q6H PRN 03/15/18 Inhaler] Previous Rx's Medication Instructions Recorded Ferrous Sulfate [Feosol] 325 mg PO BID #60 tab 03/16/18 Naproxen [Naprosyn] 500 mg PO BID #60 tab 03/16/18 Allergies Allergy/AdvReac Type Severity Reaction Status Date / Time No Known Allergies Allergy Verified 08/04/18 03:50 Review of Systems ROS Other: All systems not noted in ROS Statement are negative. Constitutional: Denies: fever Respiratory: Denies: cough, dyspnea Cardiovascular: Denies: chest pain, palpitations, edema Gastrointestinal: Reports: abdominal pain, nausea, vomiting. Denies: diarrhea, constipation, hematemesis Genitourinary: Denies: dysuria, frequency, hematuria Musculoskeletal: Denies: back pain Skin: Denies: rash Neurological: Reports: headache. Denies: weakness <Aydin Gunter - Last Filed: 08/04/18 07:32> ROS Other: All systems not noted in ROS Statement are negative. <Elver Ordoñez - Last Filed: 08/04/18 08:23> ROS Statement: Those systems with pertinent positive or pertinent negative responses have been documented in the HPI. Past Medical History Past Medical History: Asthma, GERD/Reflux, Hyperlipidemia, Renal Disease, Thyroid Disorder Additional Past Medical History / Comment(s): thyroid nodules-benign, UTIs and recent UTI treated with antibiotic. History of Any Multi-Drug Resistant Organisms: None Reported Past Surgical History: Cholecystectomy Additional Past Surgical History / Comment(s): EGD, colonoscopy, R cataract removed, thyroid biopsy. Past Anesthesia/Blood Transfusion Reactions: No Reported Reaction Past Psychological History: No Psychological Hx Reported Smoking Status: Never smoker Past Alcohol Use History: None Reported Past Drug Use History: None Reported - Past Family History Father Family Medical History: No Reported History Additional Family Medical History / Comment(s): Pt states father was healthy and at the age of 75yrs from old age. Mother Family Medical History: No Reported History Additional Family Medical History / Comment(s): Pt reports that mother was healthy and in her 60s d/t old age. <Aydin Gunter - Last Filed: 08/04/18 07:32> General Exam Limitations: language barrier General appearance: alert, in no apparent distress Eye exam: Present: normal appearance ENT exam: Present: normal oropharynx Neck exam: Present: normal inspection, full ROM. Absent: tenderness, meningismus Respiratory exam: Present: normal lung sounds bilaterally. Absent: respiratory distress, wheezes, rales, rhonchi, stridor Cardiovascular Exam: Present: regular rate, normal rhythm, normal heart sounds. Absent: systolic murmur, diastolic murmur, rubs, gallop GI/Abdominal exam: Present: soft. Absent: distended, tenderness, guarding, rebound, rigid, mass, pulsatile mass Extremities exam: Present: normal inspection, normal capillary refill. Absent: pedal edema, calf tenderness Back exam: Present: normal inspection. Absent: CVA tenderness (R), CVA tenderness (L) Neurological exam: Present: alert Skin exam: Present: warm, dry, intact, normal color <ChadAydin davey - Last Filed: 08/04/18 07:32> Vital Signs 08/04/18 08/04/18 03:44 06:11 Temperature 97.7 F 98.4 F Pulse Rate 71 79 Respiratory 21 18 Rate Blood Pressure 147/87 140/70 O2 Sat by Pulse 99 96 Oximetry Medical Decision Making - Lab Data Result diagrams: 08/04/18 04:05 08/04/18 04:05 - EKG Data -: EKG Interpreted by [facility] EKG shows normal: sinus rhythm, axis (Normal), intervals (Normal), QRS complexes (Normal), ST-T waves (Normal) Rate: normal (Rate 80 bpm) Interpretation: normal EKG <LyricAydin - Last Filed: 08/04/18 07:32> - Lab Data Result diagrams: 08/04/18 04:05 08/04/18 04:05 <Elver Ordoñez - Last Filed: 08/04/18 08:23> - Medical Decision Making 52-year-old female signed out at shift change awaiting reevaluation. Patient was seen with complaints of abdominal pain, vomiting, and mild headache. At the time of reevaluation, patient resting comfortably, she has no complaints no headache, no abdominal pain. No vomiting while in the emergency department. She is accompanied by her and daughter. She does prefer that her translate. Patient has no complaints and is eager for discharge. Patient will follow with Dr. Hayes and present to the emergency department with worsening or changing symptoms. CT reviewed, no acute intra-abdominal findings no obstruction. Laboratory studies reveal normal CBC, normal CMP, normal urinalysis. (Elver Ordoñez) - Lab Data Lab Results 08/04/18 08/04/18 08/04/18 Range/Units 04:05 04:05 04:05 WBC 5.0 (3.8-10.6) k/uL RBC 5.12 (3.80-5.40) m/uL Hgb 12.7 (11.4-16.0) gm/dL Hct 40.8 (34.0-46.0) % MCV 79.7 L (80.0-100.0) fL MCH 24.7 L (25.0-35.0) pg MCHC 31.0 (31.0-37.0) g/dL RDW 13.8 (11.5-15.5) % Plt Count 206 (150-450) k/uL Neutrophils % 46 % Lymphocytes % 43 % Monocytes % 4 % Eosinophils % 3 % Basophils % 0 % Neutrophils # 2.3 (1.3-7.7) k/uL Lymphocytes # 2.1 (1.0-4.8) k/uL Monocytes # 0.2 (0-1.0) k/uL Eosinophils # 0.2 (0-0.7) k/uL Basophils # 0.0 (0-0.2) k/uL Sodium 136 L (137-145) mmol/L Potassium 4.4 (3.5-5.1) mmol/L Chloride 104 (98-107) mmol/L Carbon Dioxide 28 (22-30) mmol/L Anion Gap 4 mmol/L BUN 23 H (7-17) mg/dL Creatinine 0.85 (0.52-1.04) mg/dL Est GFR (CKD-EPI)AfAm >90 (>60 ml/min/1.73 sqM) Est GFR (CKD-EPI)NonAf 80 (>60 ml/min/1.73 sqM) Glucose 148 H (74-99) mg/dL Calcium 8.5 (8.4-10.2) mg/dL Total Bilirubin 0.4 (0.2-1.3) mg/dL AST 20 (14-36) U/L ALT 53 H (9-52) U/L Alkaline Phosphatase 88 (38-126) U/L Troponin I (0.000-0.034) ng/mL Total Protein 6.6 (6.3-8.2) g/dL Albumin 3.4 L (3.5-5.0) g/dL Amylase 83 (30-110) U/L Lipase 180 (23-300) U/L Urine Color Yellow Urine Appearance Clear (Clear) Urine pH 7.0 (5.0-8.0) Ur Specific [place] 1.015 (1.001-1.035) Urine Protein Negative (Negative) Urine Glucose (UA) Negative (Negative) Urine Ketones Negative (Negative) Urine Blood Negative (Negative) Urine Nitrite Negative (Negative) Urine Bilirubin Negative (Negative) Urine Urobilinogen <2.0 (<2.0) mg/dL Ur Leukocyte Esterase Small H (Negative) Urine RBC 3 (0-5) /hpf Urine WBC 5 (0-5) /hpf Ur Squamous Epith Cells 1 (0-4) /hpf Urine Mucus Rare H (None) /hpf 08/04/18 Range/Units 04:05 WBC (3.8-10.6) k/uL RBC (3.80-5.40) m/uL Hgb (11.4-16.0) gm/dL Hct (34.0-46.0) % MCV (80.0-100.0) fL MCH (25.0-35.0) pg MCHC (31.0-37.0) g/dL RDW (11.5-15.5) % Plt Count (150-450) k/uL Neutrophils % % Lymphocytes % % Monocytes % % Eosinophils % % Basophils % % Neutrophils # (1.3-7.7) k/uL Lymphocytes # (1.0-4.8) k/uL Monocytes # (0-1.0) k/uL Eosinophils # (0-0.7) k/uL Basophils # (0-0.2) k/uL Sodium (137-145) mmol/L Potassium (3.5-5.1) mmol/L Chloride (98-107) mmol/L Carbon Dioxide (22-30) mmol/L Anion Gap mmol/L BUN (7-17) mg/dL Creatinine (0.52-1.04) mg/dL Est GFR (CKD-EPI)AfAm (>60 ml/min/1.73 sqM) Est GFR (CKD-EPI)NonAf (>60 ml/min/1.73 sqM) Glucose (74-99) mg/dL Calcium (8.4-10.2) mg/dL Total Bilirubin (0.2-1.3) mg/dL AST (14-36) U/L ALT (9-52) U/L Alkaline Phosphatase (38-126) U/L Troponin I <0.012 (0.000-0.034) ng/mL Total Protein (6.3-8.2) g/dL Albumin (3.5-5.0) g/dL Amylase (30-110) U/L Lipase (23-300) U/L Urine Color Urine Appearance (Clear) Urine pH (5.0-8.0) Ur Specific [place] (1.001-1.035) Urine Protein (Negative) Urine Glucose (UA) (Negative) Urine Ketones (Negative) Urine Blood (Negative) Urine Nitrite (Negative) Urine Bilirubin (Negative) Urine Urobilinogen (<2.0) mg/dL Ur Leukocyte Esterase (Negative) Urine RBC (0-5) /hpf Urine WBC (0-5) /hpf Ur Squamous Epith Cells (0-4) /hpf Urine Mucus (None) /hpf Disposition <Aydin Gunter - Last Filed: 08/04/18 07:32> Is patient prescribed a controlled substance at d/c from ED?: No Time of Disposition: 08:23 <Elver Ordoñez - Last Filed: 08/04/18 08:23> Clinical Impression: Abdominal pain Disposition: HOME SELF-CARE Condition: Fair Instructions: Abdominal Pain (ED) Referrals: Ismael Hayes MD [Primary Care Provider] - 1-2 days
[2018-08-04 04:33] LABS: Albumin 3.4 g/dL (3.5-5.0); Glucose 148 mg/dL (74-99); Total Protein 6.6 g/dL (6.3-8.2)
[2018-08-04 04:34] LABS: ALT 53 U/L (9-52); AST 20 U/L (14-36); Alkaline Phosphatase 88 U/L (38-126); Amylase 83 U/L (30-110); Anion Gap 4 mmol/L; Blood Urea Nitrogen 23 mg/dL (7-17); Calcium 8.5 mg/dL (8.4-10.2); Carbon Dioxide 28 mmol/L (22-30); Chloride 104 mmol/L (98-107); Lipase 180 U/L (23-300); Potassium 4.4 mmol/L (3.5-5.1); Sodium 136 mmol/L (137-145); Total Bilirubin 0.4 mg/dL (0.2-1.3)
--- NOTE | 2018-08-04 05:11 | CT ---
EXAMINATION TYPE: CT abdomen pelvis wo con DATE OF EXAM: 08/04/2018 COMPARISON: August 18, 2017 HISTORY: abdominal pain with nausea and vomiting CT DLP: 568 mGycm Automated exposure control for dose reduction was used. TECHNIQUE: Helical acquisition of images was performed from the lung bases through the pelvis. FINDINGS: Lung bases are clear. There is no pleural effusion. There is some fatty infiltration of the liver. Sp rita appears normal. There is no pancreatic mass. There are clips from cholecystectomy. Bile ducts ar e not dilated. The stomach appears normal. There is no adrenal mass. Kidneys have normal size and con tour. There is no hydronephrosis. Ureters are not dilated. There is no retroperitoneal adenopathy. Bl adder distends smoothly. Uterus is anteverted. There is no inguinal hernia. Superior liver and spleen are not entirely included on the exam. There is no free fluid in the pelvis. There is no sign of a pelvic mass. Appendix appears normal. The re is no mesenteric edema. There is no sign of free air. There is no evidence of a bowel obstruction. There is possible 2 mm calculus upper pole left kidney. There is 20% anterior wedging of L1 vertebra that appears old. IMPRESSION: POSSIBLE SMALL LEFT RENAL CALCULUS. NO EVIDENCE OF RENAL MASS OR OBSTRUCTION. NORMAL APPENDIX. FATTY INFILTRATION OF THE LIVER. OLD L1 COMPRESSION FRACTURE UNCHANGED.
[2018-08-04] MEDS ORDERED: SODIUM CHLORIDE 0.9% 1,000 ML IV ONE (06:53)
[2018-08-04 08:25] VITALS: BP 131/79; PULSE 77; RESP 16; TEMP 97.9
== END 2018-08-04 08:30 | disposition home or self-care (01) ==
LOC: EC 03:42
DX: R10.84 Generalized abdominal pain (principal); R11.2 Nausea with vomiting, unspecified; R51 Headache; J45.909 Unspecified asthma, uncomplicated; K21.9 Gastro-esophageal reflux disease without esophagitis; E78.5 Hyperlipidemia, unspecified; Z79.899 Other long term (current) drug therapy; Z90.49 Acquired absence of other specified parts of digestive tract
CPT/HCPCS: 36415; 74176; 80053; 81001; 82150; 83690; 84484; 85025; 93005; 96361; 96374; 96375; 99285

== ENCOUNTER → 2018-10-02 | Outpatient (CLI) | payer OTHER ==
[2018-10-03 00:55] LABS: Hemoglobin A1C 6.3 % (4.0-6.0)
[2018-10-03 02:24] LABS: ALT 31 U/L (8-44); AST 23 U/L (13-35); Alkaline Phosphatase 112 U/L (41-126); Bilirubin, Conjugated <0.20 mg/dL (0.20-0.40); Calcium 8.8 mg/dL (8.7-10.3); Carbon Dioxide 28.2 mmol/L (21.6-31.8); Chloride 107 mmol/L (96-109); Cholesterol 207 mg/dL (0-200); Globulin 2.5 g/dL (1.6-3.3); Glucose 97 mg/dL (70-110); LDL Cholesterol,Calculated 119.2 mg/dL (0.0-131.0); Potassium 4.8 mmol/L (3.5-5.5); Sodium 141 mmol/L (135-145); Total Bilirubin 0.7 mg/dL (0.3-1.2); Total Protein 6.5 g/dL (6.2-8.2)
[2018-10-03 02:37] LABS: Vitamin D 25 Hydroxy 39.6 ng/mL (30.0-100.0)
== END | disposition home or self-care (01) ==
LOC: LABWHC1 16:00
PROVIDERS: ATTEND Internal Medicine
DX: E11.9 Type 2 diabetes mellitus without complications (principal); E87.8 Other disorders of electrolyte and fluid balance, not elsewhere classified; E78.5 Hyperlipidemia, unspecified; I10 Essential (primary) hypertension; N20.0 Calculus of kidney; E55.9 Vitamin D deficiency, unspecified; T78.40XA Allergy, unspecified, initial encounter
CPT/HCPCS: 36415; 80048; 80061; 80076; 82306; 82785; 83036; 84439; 84443

== ENCOUNTER 2018-10-23 10:24 | Emergency (ER) | payer OTHER ==
[2018-10-23] MEDS ORDERED: SODIUM CHLORIDE 0.9% 1,000 ML IV STA (11:14)
[2018-10-23] MEDS ORDERED: IPRATROPIUM-ALBUTEROL 3 ML NEB INHALATION STA (11:14)
[2018-10-23] MEDS ORDERED: methylPREDNISolone SOD SUCCI 125 MG/2 ML VIAL IV STA (11:14)
[2018-10-23 12:04] LABS: Basophils % (A) 0 %; Eosinophils # (A) 0.3 k/uL (0-0.7); Eosinophils % (A) 6 %; HCT 36.7 % (34.0-46.0); HGB 12.4 gm/dL (11.4-16.0); Lymphocytes # (A) 1.1 k/uL (1.0-4.8); Lymphocytes % (A) 24 %; MCH 25.6 pg (25.0-35.0); MCHC 33.8 g/dL (31.0-37.0); MCV 75.8 fL (80.0-100.0); Mean Platelet Volume 7.2; Monocytes # (A) 0.2 k/uL (0-1.0); Monocytes % (A) 5 %; Neutrophils % (A) 62 %; Platelet Count 247 k/uL (150-450); RBC 4.84 m/uL (3.80-5.40); RDW 12.9 % (11.5-15.5); WBC 4.8 k/uL (3.8-10.6)
[2018-10-23 12:20] LABS: ALT 29 U/L (9-52); AST 25 U/L (14-36); Albumin 3.8 g/dL (3.5-5.0); Alkaline Phosphatase 115 U/L (38-126); Anion Gap 7 mmol/L; Blood Urea Nitrogen 7 mg/dL (7-17); Calcium 9.2 mg/dL (8.4-10.2); Carbon Dioxide 28 mmol/L (22-30); Chloride 106 mmol/L (98-107); Glucose 98 mg/dL (74-99); INR 0.9 (<1.2); Partial Thromboplastin Time 23.1 sec (22.0-30.0); Potassium 4.6 mmol/L (3.5-5.1); Prothrombin Time 9.9 sec (9.0-12.0); Sodium 141 mmol/L (137-145); Total Bilirubin 0.9 mg/dL (0.2-1.3)
--- NOTE | 2018-10-23 12:50 | XR ---
EXAMINATION TYPE: XR chest 2V DATE OF EXAM: 10/23/2018 COMPARISON: Prior chest x-ray 07/26/2018 HISTORY: Difficulty breathing TECHNIQUE: Frontal and lateral views of the chest are obtained. FINDINGS: There is no focal air space opacity, pleural effusion, or pneumothorax seen. The cardiac silhouette size is within normal limits. There are cardiac leads present. The osseous structures are intact. Surgical clips present in the upper abdomen. IMPRESSION: No acute cardiopulmonary process.
--- NOTE | 2018-10-23 13:10 | ED ---
General Adult HPI - General Chief complaint: Shortness of Breath Stated complaint: cough Time Seen by Provider: 10/23/18 10:56 Source: patient, RN notes reviewed Mode of arrival: ambulatory - History of Present Illness Initial comments: 52-year-old female with a past medical history of asthma, GERD, hyperlipidemia, renal disease presents to the emergency department for a chief complaint of cough 3 days. Patient states she has had a productive cough for the past 3 days with some shortness of breath. Denies any chest pain. Although triage note states difficulty swallowing, patient denies this complaint. Patient denies fevers or chills.Patient has no other complaints at this time including shortness of breath, chest pain, abdominal pain, nausea or vomiting, headache, or visual changes. - Related Data Home Medications Medication Instructions Recorded Confirmed Cholecalciferol [Vitamin D3] 5,000 unit PO DAILY 06/05/17 10/23/18 Albuterol Inhaler [Ventolin Hfa 2 puff INHALATION RT-Q6H PRN 03/15/18 10/23/18 Inhaler] Ammonium Lactate Lotion 1 applic TOPICAL BID 10/23/18 10/23/18 [Lac-Hydrin 12% Lotion] Atorvastatin [Lipitor] 40 mg PO HS 10/23/18 10/23/18 Beclomethasone Dipropionate [Qvar 2 puff INHALATION RT-BID 10/23/18 10/23/18 40 mcg Redihaler] Fluticasone Nasal [place] [Flonase 1 spr EA NOSTRIL BID 10/23/18 10/23/18 Nasal [place]] Ibuprofen [Motrin] 800 mg PO Q6H PRN 10/23/18 10/23/18 Naproxen Sodium [Aleve] 220 mg PO Q12HR PRN 10/23/18 10/23/18 Naproxen [Naprosyn] 500 mg PO BID-W/MEALS 10/23/18 10/23/18 Previous Rx's Medication Instructions Recorded predniSONE 50 mg PO DAILY #5 tablet 10/23/18 Allergies Allergy/AdvReac Type Severity Reaction Status Date / Time No Known Allergies Allergy Verified 10/23/18 11:13 Review of Systems ROS Statement: Those systems with pertinent positive or pertinent negative responses have been documented in the HPI. ROS Other: All systems not noted in ROS Statement are negative. Past Medical History Past Medical History: Asthma, GERD/Reflux, Hyperlipidemia, Renal Disease, Thyroid Disorder Additional Past Medical History / Comment(s): thyroid nodules-benign, UTIs and recent UTI treated with antibiotic. History of Any Multi-Drug Resistant Organisms: None Reported Past Surgical History: Cholecystectomy Additional Past Surgical History / Comment(s): EGD, colonoscopy, R cataract removed, thyroid biopsy. Past Anesthesia/Blood Transfusion Reactions: No Reported Reaction Past Psychological History: No Psychological Hx Reported Smoking Status: Never smoker Past Alcohol Use History: None Reported Past Drug Use History: None Reported - Past Family History Father Family Medical History: No Reported History Additional Family Medical History / Comment(s): Pt states father was healthy and at the age of 75yrs from old age. Mother Family Medical History: No Reported History Additional Family Medical History / Comment(s): Pt reports that mother was healthy and in her 60s d/t old age. General Exam General appearance: alert, in no apparent distress Head exam: Present: atraumatic, normocephalic, normal inspection Eye exam: Present: normal appearance, PERRL, EOMI. Absent: scleral icterus, conjunctival injection, periorbital swelling ENT exam: Present: normal exam, normal oropharynx, mucous membranes moist, TM's normal bilaterally, normal external ear exam Neck exam: Present: normal inspection, full ROM. Absent: tenderness, meningismus, lymphadenopathy Respiratory exam: Present: wheezes (Mild wheezes noted in the lower lung f ields), decreased breath sounds (Diminished bilaterally). Absent: respiratory distress, rales, rhonchi, stridor Cardiovascular Exam: Present: regular rate, normal rhythm, normal heart sounds. Absent: systolic murmur, diastolic murmur, rubs, gallop, clicks GI/Abdominal exam: Present: soft, normal bowel sounds. Absent: distended, tenderness, guarding, rebound, rigid Extremities exam: Absent: calf tenderness (No calf tenderness bilaterally, negative Homans sign) Neurological exam: Present: alert, oriented X3, CN II-XII intact Psychiatric exam: Present: normal affect, normal mood Course Vital Signs 10/23/18 10/23/18 10/23/18 10:43 11:08 12:01 Temperature 99.5 F Pulse Rate 96 92 Respiratory 18 20 Rate Blood Pressure 134/86 O2 Sat by Pulse 95 Oximetry 10/23/18 10/23/18 12:07 13:34 Temperature 99.4 F Pulse Rate 92 90 Respiratory 18 Rate Blood Pressure 132/69 O2 Sat by Pulse 95 Oximetry EKG Findings - EKG Comments: EKG Findings:: Normal sinus rhythm, ventricular rate 85, QRS duration 82, QTC 433 Medical Decision Making - Medical Decision Making 52-year-old female with history of asthma presents for cough 3 days. No fevers noted at home. Patient does not appear short of breath, vitals are stable. CBC and CMP are unremarkable. Troponins are negative. X-ray shows no acute cardiopulmonary process. Lung sounds do show minimal wheezing in the lower lung holly as well as overall diminished pattern. She was given steroids and br eathing treatment due to her history of asthma which did improve wheezing. At this time patient will be diagnosed with asthma exacerbation, clinically is also correlated for influenza however as symptoms have been greater than 3 days she was not swabbed as she could not receive Tamiflu. Patient was given steroids for home. She does have an inhaler at home. She will follow up with primary care in 1-2 days and return here if she has any worsening symptoms. - Lab Data Result diagrams: 10/23/18 11:44 10/23/18 11:44 Lab Results 10/23/18 10/23/18 10/23/18 Range/Units 11:44 11:44 11:44 WBC 4.8 (3.8-10.6) k/uL RBC 4.84 (3.80-5.40) m/uL Hgb 12.4 (11.4-16.0) gm/dL Hct 36.7 (34.0-46.0) % MCV 75.8 L (80.0-100.0) fL MCH 25.6 (25.0-35.0) pg MCHC 33.8 (31.0-37.0) g/dL RDW 12.9 (11.5-15.5) % Plt Count 247 (150-450) k/uL Neutrophils % 62 % Lymphocytes % 24 % Monocytes % 5 % Eosinophils % 6 % Basophils % 0 % Neutrophils # 3.0 (1.3-7.7) k/uL Lymphocytes # 1.1 (1.0-4.8) k/uL Monocytes # 0.2 (0-1.0) k/uL Eosinophils # 0.3 (0-0.7) k/uL Basophils # 0.0 (0-0.2) k/uL PT 9.9 (9.0-12.0) sec INR 0.9 (<1.2) APTT 23.1 (22.0-30.0) sec Sodium 141 (137-145) mmol/L Potassium 4.6 (3.5-5.1) mmol/L Chloride 106 (98-107) mmol/L Carbon Dioxide 28 (22-30) mmol/L Anion Gap 7 mmol/L BUN 7 (7-17) mg/dL Creatinine 0.59 (0.52-1.04) mg/dL Est GFR (CKD-EPI)AfAm >90 (>60 ml/min/1.73 sqM) Est GFR (CKD-EPI)NonAf >90 (>60 ml/min/1.73 sqM) Glucose 98 (74-99) mg/dL Calcium 9.2 (8.4-10.2) mg/dL Total Bilirubin 0.9 (0.2-1.3) mg/dL AST 25 (14-36) U/L ALT 29 (9-52) U/L Alkaline Phosphatase 115 (38-126) U/L Troponin I (0.000-0.034) ng/mL Total Protein 7.0 (6.3-8.2) g/dL Albumin 3.8 (3.5-5.0) g/dL 10/23/18 Range/Units 11:44 WBC (3.8-10.6) k/uL RBC (3.80-5.40) m/uL Hgb (11.4-16.0) gm/dL Hct (34.0-46.0) % MCV (80.0-100.0) fL MCH (25.0-35.0) pg MCHC (31.0-37.0) g/dL RDW (11.5-15.5) % Plt Count (150-450) k/uL Neutrophils % % Lymphocytes % % Monocytes % % Eosinophils % % Basophils % % Neutrophils # (1.3-7.7) k/uL Lymphocytes # (1.0-4.8) k/uL Monocytes # (0-1.0) k/uL Eosinophils # (0-0.7) k/uL Basophils # (0-0.2) k/uL PT (9.0-12.0) sec INR (<1.2) APTT (22.0-30.0) sec Sodium (137-145) mmol/L Potassium (3.5-5.1) mmol/L Chloride (98-107) mmol/L Carbon Dioxide (22-30) mmol/L Anion Gap mmol/L BUN (7-17) mg/dL Creatinine (0.52-1.04) mg/dL Est GFR (CKD-EPI)AfAm (>60 ml/min/1.73 sqM) Est GFR (CKD-EPI)NonAf (>60 ml/min/1.73 sqM) Glucose (74-99) mg/dL Calcium (8.4-10.2) mg/dL Total Bilirubin (0.2-1.3) mg/dL AST (14-36) U/L ALT (9-52) U/L Alkaline Phosphatase (38-126) U/L Troponin I <0.012 (0.000-0.034) ng/mL Total Protein (6.3-8.2) g/dL Albumin (3.5-5.0) g/dL Disposition Clinical Impression: Asthma exacerbation Disposition: HOME SELF-CARE Condition: Good Instructions (If sedation given, give patient instructions): Asthma (ED), Influenza (ED) Additional Instructions: Please take steroid as directed. Please follow-up with primary care in 1-2 days. Please return here if you have any worsening symptoms. Prescriptions: predniSONE 50 mg PO DAILY #5 tablet Is patient prescribed a controlled substance at d/c from ED?: No Referrals: Ismael Hayes MD [Primary Care Provider] - 1-2 days Time of Disposition: 13:09
[2018-10-23 13:35] VITALS: BP 132/69; PULSE 90; RESP 18; TEMP 99.4
== END 2018-10-23 13:34 | disposition home or self-care (01) ==
LOC: EC 10:24
DX: J45.901 Unspecified asthma with (acute) exacerbation (principal); E78.5 Hyperlipidemia, unspecified; Z79.1 Long term (current) use of non-steroidal anti-inflammatories (NSAID); Z79.51 Long term (current) use of inhaled steroids; Z79.899 Other long term (current) drug therapy
CPT/HCPCS: 36415; 94640; 93005; 80053; 84484; 85025; 85610; 85730; 87040; 71046; 99285; 96374; 96361; J2930

== ENCOUNTER 2019-02-05 18:40 | Observation (INO) | payer OTHER ==
[2019-02-05] MEDS ORDERED: HYDROmorphone 0.5 MG/0.5 ML SYRINGE IVP STA (20:28)
[2019-02-05] MEDS ORDERED: SODIUM CHLORIDE 0.9% 1,000 ML IV STA (20:28)
[2019-02-05] MEDS ORDERED: ONDANSETRON 4 MG/2 ML VIAL IVP STA (20:28)
--- NOTE | 2019-02-05 20:38 | ED ---
Abdominal Pain HPI - General Source: family, interpreter translator Mode of arrival: ambulatory Limitations: language barrier <Kelsey Sommers - Last Filed: 02/06/19 02:56> <Jazzy Doe - Last Filed: 02/09/19 13:43> - General Chief Complaint: Abdominal Pain Stated Complaint: abdominal & back pain Time Seen by Provider: 02/05/19 20:12 - History of Present Illness Initial Comments: 53-year-old female patient presents to the emergency department today for evaluation of abdominal pain. Patient's first language is not Uzbek and she requests to use family member as interpreter translator. Patient reports she has been having generalized abdominal pain especially in the bilateral upper quadrants over the last 3 weeks. Patient states the pain is worsening and makes it difficult for her to change positions. She does report intermittent chest pain and shortness of breath. Patient states that she is having low back pain but does have a history of chronic low back pain and does take Aleve for this. Patient states she is having some dysuria. She denies any hematuria or urinary frequency. States she has been nauseated but has not had any vomiting. She is reporting normal bowel movements without hematochezia or melena. She states that she has had some chills and has felt feverish but has not taken her temperature. She has had previous cholecystectomy but no other abdominal surgeries. Patient denies any recent rash, numbness, tingling, dizziness, weakness, headache, visual changes, or any other complaints. (Kelsey Sommers) - Related Data Home Medications Medication Instructions Recorded Confirmed Albuterol Inhaler [Ventolin Hfa 2 puff INHALATION RT-Q6H PRN 03/15/18 02/05/19 Inhaler] Atorvastatin [Lipitor] 40 mg PO HS 10/23/18 02/05/19 Naproxen Sodium [Aleve] 220 mg PO Q12HR PRN 10/23/18 02/05/19 Previous Rx's Medication Instructions Recorded Omeprazole [PriLOSEC] 20 mg PO AC-BRKFST #20 cap 02/07/19 Allergies Allergy/AdvReac Type Severity Reaction Status Date / Time No Known Allergies Allergy Verified 02/05/19 20:05 Review of Systems ROS Other: All systems not noted in ROS Statement are negative. <Kelsey Sommers - Last Filed: 02/06/19 02:56> ROS Other: All systems not noted in ROS Statement are negative. <Jazzy Doe P - Last Filed: 02/09/19 13:43> ROS Statement: Those systems with pertinent positive or pertinent negative responses have been documented in the HPI. Past Medical History Past Medical History: Asthma, GERD/Reflux, Hyperlipidemia, Renal Disease, Thyroid Disorder Additional Past Medical History / Comment(s): thyroid nodules-benign, UTIs and recent UTI treated with antibiotic. History of Any Multi-Drug Resistant Organisms: None Reported Past Surgical History: Cholecystectomy Additional Past Surgical History / Comment(s): EGD, colonoscopy, R cataract removed, thyroid biopsy. Past Anesthesia/Blood Transfusion Reactions: No Reported Reaction Past Psychological History: No Psychological Hx Reported Smoking Status: Never smoker Past Alcohol Use History: None Reported Past Drug Use History: None Reported - Past Family History Father Family Medical History: No Reported History Additional Family Medical History / Comment(s): Pt states father was healthy and at the age of 75yrs from old age. Mother Family Medical History: No Reported History Additional Family Medical History / Comment(s): Pt reports that mother was healthy and in her 60s d/t old age. <TootieKelsey M - Last Filed: 02/06/19 02:56> General Exam Limitations: language barrier General appearance: alert, in no apparent distress, other (Physical well- developed, well-nourished adult female patient in no acute distress. Vital signs upon presentation are temperature 98.3F, pulse 74, respirations 18, blood pressure 129/72, pulse ox 99% on room air.) Eye exam: Present: normal appearance, PERRL, EOMI. Absent: scleral icterus, conjunctival injection, periorbital swelling ENT exam: Present: normal exam, normal oropharynx, mucous membranes moist Respiratory exam: Present: normal lung sounds bilaterally. Absent: respiratory distress, wheezes, rales, rhonchi, stridor Cardiovascular Exam: Present: regular rate, normal rhythm, normal heart sounds. Absent: systolic murmur, diastolic murmur, rubs, gallop, clicks GI/Abdominal exam: Present: soft, tenderness (Generalized), normal bowel sounds. Absent: distended, guarding, rebound, rigid Neurological exam: Present: alert, oriented X3, CN II-XII intact Psychiatric exam: Present: normal affect, normal mood Skin exam: Present: warm, dry, intact, normal color. Absent: rash <Kelsey Sommers - Last Filed: 02/06/19 02:56> Course Vital Signs 02/05/19 02/05/19 02/05/19 19:21 20:55 22:51 Temperature 98.3 F Pulse Rate 74 74 84 Respiratory 18 18 18 Rate Blood Pressure 129/72 133/80 144/76 O2 Sat by Pulse 99 98 94 L Oximetry 02/05/19 02/06/19 23:56 01:56 Temperature Pulse Rate 81 81 Respiratory 18 20 Rate Blood Pressure 107/75 119/78 O2 Sat by Pulse 99 95 Oximetry Medical Decision Making - Lab Data Result diagrams: 02/05/19 20:11 02/05/19 20:11 - EKG Data -: EKG Interpreted by Me - Radiology Data Radiology results: report reviewed, image reviewed <Kelsey Sommers - Last Filed: 02/06/19 02:56> - Lab Data Result diagrams: 02/06/19 11:00 02/06/19 11:00 <Jazzy Doe - Last Filed: 02/09/19 13:43> - Medical Decision Making 53-year-old female patient presented to the emergency department today for evaluation of upper abdominal pain and nausea. Physical examination did reveal generalized abdominal tenderness. Labs reviewed and are unremarkable. CT abdomen and pelvis with contrast was obtained and did show possible partial small bowel obstruction related to enteritis. I did discuss the case with my attending physician, she discuss the case with Dr. He agrees to admission. Dr. Zapata will be consulted for surgical evaluation. I discussed findings with patient and family, they are agreeable to admission. (Kelsey Sommers) I personally saw and evaluated the patient. I discussed patient care with her physician Dr. Hayes who accepts the admission. (Jazzy Doe) - Lab Data Lab Results 02/05/19 02/05/19 02/05/19 Range/Units 20:11 20:11 20:11 WBC 5.9 (3.8-10.6) k/uL RBC 4.61 (3.80-5.40) m/uL Hgb 11.3 L (11.4-16.0) gm/dL Hct 35.5 (34.0-46.0) % MCV 77.1 L (80.0-100.0) fL MCH 24.6 L (25.0-35.0) pg MCHC 31.9 (31.0-37.0) g/dL RDW 13.1 (11.5-15.5) % Plt Count 245 (150-450) k/uL Neutrophils % 52 % Lymphocytes % 37 % Monocytes % 5 % Eosinophils % 3 % Basophils % 1 % Neutrophils # 3.1 (1.3-7.7) k/uL Lymphocytes # 2.2 (1.0-4.8) k/uL Monocytes # 0.3 (0-1.0) k/uL Eosinophils # 0.2 (0-0.7) k/uL Basophils # 0.0 (0-0.2) k/uL Sodium 140 (137-145) mmol/L Potassium 4.5 (3.5-5.1) mmol/L Chloride 106 (98-107) mmol/L Carbon Dioxide 28 (22-30) mmol/L Anion Gap 6 mmol/L BUN 17 (7-17) mg/dL Creatinine 0.59 (0.52-1.04) mg/dL Est GFR (CKD-EPI)AfAm >90 (>60 ml/min/1.73 sqM) Est GFR (CKD-EPI)NonAf >90 (>60 ml/min/1.73 sqM) Glucose 99 (74-99) mg/dL Plasma Lactic Acid [place] 0.8 (0.7-2.0) mmol/L Calcium 8.6 (8.4-10.2) mg/dL Total Bilirubin 0.3 (0.2-1.3) mg/dL AST 23 (14-36) U/L ALT 22 (9-52) U/L Alkaline Phosphatase 86 (38-126) U/L Troponin I (0.000-0.034) ng/mL Total Protein 6.9 (6.3-8.2) g/dL Albumin 3.8 (3.5-5.0) g/dL Amylase 69 (30-110) U/L Lipase 143 (23-300) U/L Urine Color Urine Appearance (Clear) Urine pH (5.0-8.0) Ur Specific [place] (1.001-1.035) Urine Protein (Negative) Urine Glucose (UA) (Negative) Urine Ketones (Negative) Urine Blood (Negative) Urine Nitrite (Negative) Urine Bilirubin (Negative) Urine Urobilinogen (<2.0) mg/dL Ur Leukocyte Esterase (Negative) 02/05/19 02/05/19 Range/Units 20:11 20:11 WBC (3.8-10.6) k/uL RBC (3.80-5.40) m/uL Hgb (11.4-16.0) gm/dL Hct (34.0-46.0) % MCV (80.0-100.0) fL MCH (25.0-35.0) pg MCHC (31.0-37.0) g/dL RDW (11.5-15.5) % Plt Count (150-450) k/uL Neutrophils % % Lymphocytes % % Monocytes % % Eosinophils % % Basophils % % Neutrophils # (1.3-7.7) k/uL Lymphocytes # (1.0-4.8) k/uL Monocytes # (0-1.0) k/uL Eosinophils # (0-0.7) k/uL Basophils # (0-0.2) k/uL Sodium (137-145) mmol/L Potassium (3.5-5.1) mmol/L Chloride (98-107) mmol/L Carbon Dioxide (22-30) mmol/L Anion Gap mmol/L BUN (7-17) mg/dL Creatinine (0.52-1.04) mg/dL Est GFR (CKD-EPI)AfAm (>60 ml/min/1.73 sqM) Est GFR (CKD-EPI)NonAf (>60 ml/min/1.73 sqM) Glucose (74-99) mg/dL Plasma Lactic Acid [place] (0.7-2.0) mmol/L Calcium (8.4-10.2) mg/dL Total Bilirubin (0.2-1.3) mg/dL AST (14-36) U/L ALT (9-52) U/L Alkaline Phosphatase (38-126) U/L Troponin I <0.012 (0.000-0.034) ng/mL Total Protein (6.3-8.2) g/dL Albumin (3.5-5.0) g/dL Amylase (30-110) U/L Lipase (23-300) U/L Urine Color Yellow Urine Appearance Clear (Clear) Urine pH 5.0 (5.0-8.0) Ur Specific [place] 1.016 (1.001-1.035) Urine Protein Negative (Negative) Urine Glucose (UA) Negative (Negative) Urine Ketones Negative (Negative) Urine Blood Negative (Negative) Urine Nitrite Negative (Negative) Urine Bilirubin Negative (Negative) Urine Urobilinogen <2.0 (<2.0) mg/dL Ur Leukocyte Esterase Negative (Negative) - EKG Data EKG Comments: EKG obtained at 2104 shows normal sinus rhythm with a ventricular rate of 80, MO interval 152, QR duration 80, QT 392, QTc 452. No evidence of ST elevation or depression. (Kelsey Sommers) - Radiology Data CT abdomen and pelvis was obtained. Report was reviewed in its entirety. Impression by Dr. Logan shows overall nonspecific bowel gas pattern. Suboptimal study without enteric contrast. Possible mild left-sided enteritis causing partial small bowel obstruction as there is some jejunal loop prominence and small bowel feces sign. (Kelsey Sommers) Disposition Decision to Admit Reason: Admit from EC Decision Date: 02/06/19 Decision Time: 00:18 <Kelsey Sommers - Last Filed: 02/06/19 02:56> <Jazzy Doe - Last Filed: 02/09/19 13:43> Clinical Impression: Partial small bowel obstruction Disposition: ADMITTED IP TO THIS [facility] Condition: Serious
[2019-02-05 20:50] LABS: Appearance,Urine Clear (Clear); Bilirubin,Urine Negative (Negative); Blood,Urine Negative (Negative); Color,Urine Yellow; Glucose,Urine (UA) Negative (Negative); Ketones,Urine Negative (Negative); Leukocyte Esterase,Urine Negative (Negative); Nitrite,Urine Negative (Negative); Protein,Urine Negative (Negative); Specific Gravity,Urine 1.016 (1.001-1.035); Urobilinogen,Urine <2.0 mg/dL (<2.0)
[2019-02-05 20:54] LABS: Basophils % (A) 1 %; Eosinophils # (A) 0.2 k/uL (0-0.7); Eosinophils % (A) 3 %; HCT 35.5 % (34.0-46.0); HGB 11.3 gm/dL (11.4-16.0); Lymphocytes # (A) 2.2 k/uL (1.0-4.8); Lymphocytes % (A) 37 %; MCH 24.6 pg (25.0-35.0); MCHC 31.9 g/dL (31.0-37.0); MCV 77.1 fL (80.0-100.0); Mean Platelet Volume 6.9; Monocytes # (A) 0.3 k/uL (0-1.0); Monocytes % (A) 5 %; Neutrophils # (A) 3.1 k/uL (1.3-7.7); Neutrophils % (A) 52 %; Platelet Count 245 k/uL (150-450); RBC 4.61 m/uL (3.80-5.40); RDW 13.1 % (11.5-15.5); WBC 5.9 k/uL (3.8-10.6)
[2019-02-05 20:56] LABS: ALT 22 U/L (9-52); AST 23 U/L (14-36); African American GFR (CKD) >90 (>60 ml/min/1.73 sqM); Albumin 3.8 g/dL (3.5-5.0); Alkaline Phosphatase 86 U/L (38-126); Amylase 69 U/L (30-110); Anion Gap 6 mmol/L; Blood Urea Nitrogen 17 mg/dL (7-17); Calcium 8.6 mg/dL (8.4-10.2); Carbon Dioxide 28 mmol/L (22-30); Chloride 106 mmol/L (98-107); Glucose 99 mg/dL (74-99); Potassium 4.5 mmol/L (3.5-5.1); Sodium 140 mmol/L (137-145); Total Bilirubin 0.3 mg/dL (0.2-1.3); Total Protein 6.9 g/dL (6.3-8.2)
--- NOTE | 2019-02-05 21:40 | CT ---
EXAMINATION TYPE: CT abdomen pelvis w con DATE OF EXAM: 02/05/2019 HISTORY: Abdominal and lower back pain CT DLP: 1035.6mGycm Automated Exposure Control for Dose Reduction was Utilized. CONTRAST: CT scan of the abdomen and pelvis is performed without oral but with IV Contrast, patient injected wi th 100 mL of Isovue 300. COMPARISON: CT abdomen and pelvis August 04, 2018 FINDINGS: LUNG BASES: No significant abnormality is appreciated. LIVER/GB: Liver is diffusely low-density consistent with fatty infiltration. Cholecystectomy clips ar e noted. PANCREAS: No significant abnormality is seen. SPLEEN: Spleen is stable and mildly enlarged at 13.0 cm coronal image 66. ADRENALS: No significant abnormality is seen. KIDNEYS: Subcentimeter lesion anteriorly left kidney mid to lower pole level coronal image 54 favors simple thin-walled cyst. BOWEL: Evaluation of bowel is suboptimal thickening due to lack of enteric contrast. No suspicious sm all and large bowel dilatation. Slightly prominent small bowel loops with small bowel feces sign left mid abdomen measures up to 2.4 cm. There may be mild wall thickening of jejunal loops in the left ab domen UTERUS/ADNEXA: Heterogeneous anteverted uterus. LYMPH NODES: No greater than 1cm abdominal or pelvic lymph nodes are appreciated. OSSEOUS STRUCTURES: [id number] narrowing of both hip joints. Mild chronic compression fracture L1 level. OTHER: No significant additional abnormality is seen. IMPRESSION: Overall nonspecific bowel gas pattern. Suboptimal study without enteric contrast. Possibl e mild left-sided enteritis causing partial small bowel obstruction as there is some jejunal loop pro minence and small bowel feces sign.
[2019-02-05] MEDS ORDERED: HYDROmorphone 2 MG/ML 1 ML SYRINGE IVP STA (22:35)
[2019-02-06] MEDS ORDERED: ONDANSETRON 4 MG/2 ML VIAL IVP PRN
[2019-02-06] MEDS ORDERED: NALOXONE 0.4 MG/ML 1 ML VIAL IV PRN
[2019-02-06] MEDS: HYDROmorphone 0.5 MG/0.5 ML SYRINGE IVP PRN ×2 (01:34→05:25)
[2019-02-06 02:57] VITALS: BMI 38.8
[2019-02-06] MEDS: SODIUM CHLORIDE 0.9% 1,000 ML IV SCH ×2 (02:58→20:49)
[2019-02-06] MEDS: ACETAMINOPHEN TAB 325 MG TAB PO PRN ×2 (10:14→20:48)
[2019-02-06] MEDS: PANTOPRAZOLE 40 MG/10 ML VIAL IV SCH (10:20)
[2019-02-06 11:28] LABS: Basophils % (A) 0 %; Eosinophils % (A) 1 %; HCT 35.5 % (34.0-46.0); Hypochromasia Slight; Lymphocytes # (A) 0.9 k/uL (1.0-4.8); Lymphocytes % (A) 15 %; MCH 24.5 pg (25.0-35.0); MCHC 31.1 g/dL (31.0-37.0); MCV 78.7 fL (80.0-100.0); Mean Platelet Volume 7.1; Monocytes # (A) 0.1 k/uL (0-1.0); Monocytes % (A) 2 %; Neutrophils # (A) 4.5 k/uL (1.3-7.7); Neutrophils % (A) 80 %; Platelet Count 238 k/uL (150-450); RBC 4.51 m/uL (3.80-5.40); RDW 13.3 % (11.5-15.5); WBC 5.6 k/uL (3.8-10.6)
[2019-02-06 11:33] LABS: ALT 24 U/L (9-52); AST 20 U/L (14-36); African American GFR (CKD) >90 (>60 ml/min/1.73 sqM); Albumin 3.7 g/dL (3.5-5.0); Alkaline Phosphatase 86 U/L (38-126); Anion Gap 6 mmol/L; Blood Urea Nitrogen 14 mg/dL (7-17); Calcium 8.6 mg/dL (8.4-10.2); Carbon Dioxide 26 mmol/L (22-30); Chloride 107 mmol/L (98-107); Glucose 127 mg/dL (74-99); Potassium 4.7 mmol/L (3.5-5.1); Sodium 139 mmol/L (137-145); Total Bilirubin 0.5 mg/dL (0.2-1.3); Total Protein 6.6 g/dL (6.3-8.2)
[2019-02-06] MEDS ORDERED: KETOROLAC 30 MG/ML 1 ML VIAL IVP SCH (12:00)
[2019-02-06] MEDS ORDERED: ALBUTEROL NEBULIZED 2.5 MG/3 ML INHALATION PRN (13:23)
--- NOTE | 2019-02-06 13:23 | P.HPIM ---
History of Present Illness H&P Date: 02/06/19 (Abdominal pain) Chief Complaint: Complaining of abdominal pain as intermittent and now is continuous for 2 w Past Medical History Past Medical History: Asthma, GERD/Reflux, Hyperlipidemia, Renal Disease, Thyroid Disorder Additional Past Medical History / Comment(s): thyroid nodules-benign, UTIs and recent UTI treated with antibiotic. History of Any Multi-Drug Resistant Organisms: None Reported Past Surgical History: Cholecystectomy Additional Past Surgical History / Comment(s): EGD, colonoscopy, R cataract removed, thyroid biopsy. Past Anesthesia/Blood Transfusion Reactions: No Reported Reaction Past Psychological History: No Psychological Hx Reported Smoking Status: Never smoker Past Alcohol Use History: None Reported Past Drug Use History: None Reported - Past Family History Father Family Medical History: No Reported History Additional Family Medical History / Comment(s): Pt states father was healthy and at the age of 75yrs from old age. Mother Family Medical History: No Reported History Additional Family Medical History / Comment(s): Pt reports that mother was healthy and in her 60s d/t old age. Medications and Allergies Home Medications Medication Instructions Recorded Confirmed Type Albuterol Inhaler [Ventolin Hfa 2 puff INHALATION RT-Q6H PRN 03/15/18 02/05/19 History Inhaler] Atorvastatin [Lipitor] 40 mg PO HS 10/23/18 02/05/19 History Naproxen Sodium [Aleve] 220 mg PO Q12HR PRN 10/23/18 02/05/19 History Allergies Allergy/AdvReac Type Severity Reaction Status Date / Time No Known Allergies Allergy Verified 02/05/19 20:05 Physical Exam Vitals: Vital Signs Temp Pulse Pulse Pulse Resp BP BP 02/06/19 08:00 101 H 16 02/06/19 07:00 98.7 F 101 H 16 145/87 02/06/19 02:26 97.7 F 76 17 127/74 02/06/19 01:56 81 20 119/78 02/05/19 23:56 81 18 107/75 02/05/19 22:51 84 18 144/76 02/05/19 20:55 74 18 133/80 02/05/19 19:21 98.3 F 74 18 129/72 Pulse Ox 02/06/19 08:00 02/06/19 07:00 100 02/06/19 02:26 93 L 02/06/19 01:56 95 02/05/19 23:56 99 02/05/19 22:51 94 L 02/05/19 20:55 98 02/05/19 19:21 99 Intake and Output 02/05/19 02/06/19 02/06/19 22:59 06:59 14:59 Intake Total 1100 Balance 1100 Intake: Amount of Fluid Infused ( 1100 ml) Oral 0 Other: Weight 90.265 kg Results CBC & Chem 7: 02/06/19 11:00 02/06/19 11:00 Labs: Abnormal Lab Results - Last 24 Hours (Table) 02/05/19 02/06/19 02/06/19 Range/Units 20:11 11:00 11:00 Hgb 11.3 L 11.0 L (11.4-16.0) gm/dL MCV 77.1 L 78.7 L (80.0-100.0) fL MCH 24.6 L 24.5 L (25.0-35.0) pg Lymphocytes # 0.9 L (1.0-4.8) k/uL Glucose 127 H (74-99) mg/dL Thrombosis Risk Factor Assmnt - Choose All That Apply Each Factor Represents 1 point: Age 41-60 years Other Risk Factors: No Other congenital or acquired thrombophilia - If yes, enter type in comment: No Thrombosis Risk Factor Assessment Total Risk Factor Score: 1 Thrombosis Risk Factor Assessment Level: Low Risk
--- NOTE | 2019-02-06 16:18 | P.GSCN ---
History of Present Illness Consult date: 02/06/19 Reason for Consult: SBO Requesting physician: Jazzy Doe History of present illness: CHIEF COMPLAINT: abdominal pain HISTORY OF PRESENT ILLNESS: 53-year-old female who presented to emergency room with a chief complaint of abdominal pain. Patient speaks Japanese. No Indonesian. Patient's daughter is at the bedside and is interpreting for patient. She reports the patient has been having abdominal pain for the last 3 weeks but it has worsened in severity over the last 3 days. She reports her mother has been eating and drinking as she normally has. No decreased appetite. She does report intermittent nausea but denies any episodes of emesis. She reports she had a bowel movement yesterday that was normal in characteristics. Denies hematemesis, hematochezia, or melena. Patient underwent colonoscopy and EGD [place] [address] Portillo revealing normal colon and mild gastritis. Patient also reporting lower back pain which apparently is chronic for patient. Patient denies history of inflammatory bowel disease or history of colon cancer in the family. PAST MEDICAL HISTORY: See list. PAST SURGICAL HISTORY: See list. SOCIAL HISTORY: No illicit drug use. REVIEW OF SYSTEMS: CONSTITUTIONAL: Denies fever or chills. HEENT: Denies blurred vision, vision changes, or eye pain. Denies hemoptysis CARDIOVASCULAR: Denies chest pain or pressure. RESPIRATORY: No shortness of breath. GASTROINTESTINAL: Refer to HPI for pertinent findings HEMATOLOGIC: Denies bleeding disorders. GENITOURINARY: Denies any blood in urine. SKIN: Denies pruitis. Denies rash. PHYSICAL EXAM: VITAL SIGNS: Reviewed. GENERAL: Well-developed in no acute distress. HEENT: No sclera icterus. Extraocular movements grossly intact. Moist buccal mucosa. Head is atraumatic, normocephalic. ABDOMEN: Obese. Soft. Nondistended. Tenderness upon palpation of left lower quadrant. NEUROLOGIC: Alert and oriented. LABORATORY DATA: laboratory data upon admission reveals white count 5.9. Hemoglobin 11.3. Sodium 140. Potassium 4.5. BUN 17. Creatinine 0.9. Bilirubin 0.3. AST 23. ALT 22. Amylase 69. Lipase 143. IMAGING: CT abdomen and pelvis: Overall nonspecific bowel gas pattern. Possible mild left-sided enteritis causing partial small bowel obstruction as there is some jejunal loop prominence and small bowel feces sign. ASSESSMENT: 1. Abdominal pain x 3 weeks, CT reports mild left sided enteritis PLAN: Begin clear liquid diet. Continue IV fluids. Pain control. Conservative management. No surgical intervention recommended at this time. Further recommendations pending patient course. Dr. Zapata would like CT scan repeated today with oral contrast Nurse practitioner note has been reviewed by physician. Signing provider agrees with the documented findings, assessment, and plan of care. Past Medical History Past Medical History: Asthma, GERD/Reflux, Hyperlipidemia, Renal Disease, Thyroid Disorder Additional Past Medical History / Comment(s): thyroid nodules-benign, UTIs and recent UTI treated with antibiotic. History of Any Multi-Drug Resistant Organisms: None Reported Past Surgical History: Cholecystectomy Additional Past Surgical History / Comment(s): EGD, colonoscopy, R cataract removed, thyroid biopsy. Past Anesthesia/Blood Transfusion Reactions: No Reported Reaction Past Psychological History: No Psychological Hx Reported Smoking Status: Never smoker Past Alcohol Use History: None Reported Past Drug Use History: None Reported - Past Family History Father Family Medical History: No Reported History Additional Family Medical History / Comment(s): Pt states father was healthy and at the age of 75yrs from old age. Mother Family Medical History: No Reported History Additional Family Medical History / Comment(s): Pt reports that mother was healthy and in her 60s d/t old age. Medications and Allergies Home Medications Medication Instructions Recorded Confirmed Type Albuterol Inhaler [Ventolin Hfa 2 puff INHALATION RT-Q6H PRN 03/15/18 02/05/19 History Inhaler] Atorvastatin [Lipitor] 40 mg PO HS 10/23/18 02/05/19 History Naproxen Sodium [Aleve] 220 mg PO Q12HR PRN 10/23/18 02/05/19 History Allergies Allergy/AdvReac Type Severity Reaction Status Date / Time No Known Allergies Allergy Verified 02/05/19 20:05 Surgical - Exam Vital Signs Temp Pulse Resp BP Pulse Ox 98.3 F 74 18 129/72 99 02/05/19 19:21 02/05/19 19:21 02/05/19 19:21 02/05/19 19:21 02/05/19 19:21 Results - Labs 02/06/19 11:00 02/06/19 11:00 Abnormal Lab Results - Last 24 Hours (Table) 0702/06/19 02/06/19 Range/Units 20:11 11:00 11:00 Hgb 11.3 L 11.0 L (11.4-16.0) gm/dL MCV 77.1 L 78.7 L (80.0-100.0) fL MCH 24.6 L 24.5 L (25.0-35.0) pg Lymphocytes # 0.9 L (1.0-4.8) k/uL Glucose 127 H (74-99) mg/dL Diabetes panel 02/05/19 02/06/19 Range/Units 20:11 11:00 Sodium 140 139 (137-145) mmol/L Potassium 4.5 4.7 (3.5-5.1) mmol/L Chloride 106 107 (98-107) mmol/L Carbon Dioxide 28 26 (22-30) mmol/L BUN 17 14 (7-17) mg/dL Creatinine 0.59 0.53 (0.52-1.04) mg/dL Glucose 99 127 H (74-99) mg/dL Calcium 8.6 8.6 (8.4-10.2) mg/dL AST 23 20 (14-36) U/L ALT 22 24 (9-52) U/L Alkaline Phosphatase 86 86 (38-126) U/L Total Protein 6.9 6.6 (6.3-8.2) g/dL Albumin 3.8 3.7 (3.5-5.0) g/dL Calcium panel 02/05/19 02/06/19 Range/Units 20:11 11:00 Calcium 8.6 8.6 (8.4-10.2) mg/dL Albumin 3.8 3.7 (3.5-5.0) g/dL Pituitary panel 02/05/19 02/06/19 Range/Units 20:11 11:00 Sodium 140 139 (137-145) mmol/L Potassium 4.5 4.7 (3.5-5.1) mmol/L Chloride 106 107 (98-107) mmol/L Carbon Dioxide 28 26 (22-30) mmol/L BUN 17 14 (7-17) mg/dL Creatinine 0.59 0.53 (0.52-1.04) mg/dL Glucose 99 127 H (74-99) mg/dL Calcium 8.6 8.6 (8.4-10.2) mg/dL Adrenal panel 02/05/19 02/06/19 Range/Units 20:11 11:00 Sodium 140 139 (137-145) mmol/L Potassium 4.5 4.7 (3.5-5.1) mmol/L Chloride 106 107 (98-107) mmol/L Carbon Dioxide 28 26 (22-30) mmol/L BUN 17 14 (7-17) mg/dL Creatinine 0.59 0.53 (0.52-1.04) mg/dL Glucose 99 127 H (74-99) mg/dL Calcium 8.6 8.6 (8.4-10.2) mg/dL Total Bilirubin 0.3 0.5 (0.2-1.3) mg/dL AST 23 20 (14-36) U/L ALT 22 24 (9-52) U/L Alkaline Phosphatase 86 86 (38-126) U/L Total Protein 6.9 6.6 (6.3-8.2) g/dL Albumin 3.8 3.7 (3.5-5.0) g/dL
[2019-02-06] MEDS: KETOROLAC 30 MG/ML 1 ML VIAL IVP PRN (17:25)
[2019-02-06] MEDS: IOPAMIDOL-300 CONTRAST 30 ML VIAL (ORAL USE) PO PRN ×2 (17:27→18:20)
--- NOTE | 2019-02-06 23:48 | CT ---
EXAMINATION TYPE: CT abdomen pelvis wo IV con, but w oral contrast DATE OF EXAM: 02/06/2019 COMPARISON: 02/05/2019 HISTORY: SBO CT DLP: 669.5 mGycm Automated exposure control for dose reduction was used. TECHNIQUE: Oral contrast was administered. Helical acquisition of images was then performed from the lung bases through the pelvis. FINDINGS: Within the limitations of non-IV contrast CT, following observations are made. LUNG BASES: No significant abnormality is appreciated. LIVER/GB: No significant abnormality is appreciated. PANCREAS: No significant abnormality is seen. SPLEEN: No significant abnormality is seen. ADRENALS: No significant abnormality is seen. KIDNEYS: No significant abnormality is seen. FREE AIR: No free air is visualized; no fluid. RETROPERITONEAL ADENOPATHY: None visualized1 REPRODUCTIVE ORGANS: No significant abnormality is seen URINARY BLADDER: No significant abnormality is seen. PELVIC ADENOPATHY: None visualized. OSSEOUS STRUCTURES: No significant abnormality is seen. BOWEL: No significant abnormality is seen. IMPRESSION: NO DEFINITE ACUTE PROCESS.
[2019-02-07] MEDS: KETOROLAC 30 MG/ML 1 ML VIAL IVP PRN ×2 (00:53→06:05)
[2019-02-07 07:34] VITALS: BP 132/84; PULSE 73; RESP 16
[2019-02-07] MEDS: PANTOPRAZOLE 40 MG/10 ML VIAL IV SCH (07:48)
[2019-02-07 09:10] VITALS: TEMP 98.4
--- NOTE | 2019-02-07 09:12 | P.DS ---
Providers Date of admission: 02/05/19 23:49 Expected date of discharge: 02/07/19 Attending physician: Ismael Hayes Consults: 02/06/19 00:01 Consult Physician Urgent Consulting Provider: Kody Zapata Consult Reason/Comments: SBO Do you want consulting provider notified?: Yes, Notify in am Primary care physician: Ismael Hayes This is dictation discharge summary. #1 severe abdominal pain resolved. #2 partial small bowel obstruction by computed tomography scan. Results on the second case computed tomography scan of the abdomen was contrast. #3 history of GERD disease on Prilosec at home. #4 mild chronic anemia with normal platelet. #5 advanced degenerative osteoarthritis of the joint and the spine. #5 history of L1 compression fracture old appear with the computed tomography scan as well. #6 history of asthma no activity and no exacerbation. #7 obesity #8 history of laparoscopic cholecystectomy was possible adhesion. Hospital presentation 53 years old white female presented to the emergency room because of the abdominal pain. She denied any other dysuria or any other abnormalities and she did not hematochezia or melena. She had history of cholecystectomy in the past and history of asthma which wasn't active. Hospital course: Surgical consultation after the computed tomography scan indicating partial small bowel. Seen by the surgeon and his team and the order repeat computed tomography scan in the p.m. last night which came back normal. Patient her pain is resolved able to ambulate and wants to go home and we advanced the diet gradually. On discharge: Patient is conscious alert oriented 3 ambulatory with no abdominal pain. She had the interprets in her dialect language beside her. And she understands the current problem. Vital sign: Blood pressure 132/84 normal with the pulse ox on room air 96% and the respiratory rate is 16/m nonlabored with a heart rate regular sinus rhythm 73/m. The temperature was earlier 98.2 and subsequently very poor that 99.2 and will repeat again the temperature. 98.4 Patient is conscious alert oriented 3 ambulatory HEENT negative. Neck was supple no JVD no thyromegaly no lymphadenopathy trachea midline. Chest was clear to auscultation and percussion no wheezes no rhonchi's and the heart was regular sinus rhythm. Abdomen is soft positive bowel sound no tenderness in the epigastric or sides however she had the L1 compression fracture with in the past that she had chronic back pain and she had degenerative arthritis. Extremities no edema. Pulses. And ambulatory. no lateralizing sign no neuro deficit and ambulatory neurologically. Psychiatry stable. Normal mood. Assessment and plan Patient stable general condition for discharge home today after clearance by the surgeon Dr. Montanez. Follow-up with Dr. Bauer in 1-2 days post discharge. New medication none, patient has already her PPI prescription and the medication with her in her purse and will continue the same and they did discuss with her as well as the jboss developer for clear understanding. Patient Condition at Discharge: Serious Plan - Discharge Summary New Discharge Prescriptions: New Omeprazole [PriLOSEC] 20 mg PO AC-BRKFST #20 cap Continue Albuterol Inhaler [Ventolin Hfa Inhaler] 2 puff INHALATION RT-Q6H PRN PRN Reason: Shortness Of Breath Naproxen Sodium [Aleve] 220 mg PO Q12HR PRN PRN Reason: Pain Atorvastatin [Lipitor] 40 mg PO HS Discharge Medication List Albuterol Inhaler [Ventolin Hfa Inhaler] 2 puff INHALATION RT-Q6H PRN 03/15/18 [History] Atorvastatin [Lipitor] 40 mg PO HS 10/23/18 [History] Naproxen Sodium [Aleve] 220 mg PO Q12HR PRN 10/23/18 [History] Omeprazole [PriLOSEC] 20 mg PO AC-BRKFST #20 cap 02/07/19 [Rx] Follow up Appointment(s)/Referral(s): Ismael Hayse MD [Primary Care Provider] - 1-2 days Discharge Disposition: HOME SELF-CARE
--- NOTE | 2019-02-07 12:10 | P.PN ---
Subjective Progress Note Date: 02/07/19 CHIEF COMPLAINT: abdominal pain HISTORY OF PRESENT ILLNESS: patient seen and examined at the bedside this morning. Spindle Maker present. Patient is denying abdominal pain today. She is tolerating liquid diet. Repeat computed tomography scan yesterday was negative for obstruction. Patient denies nausea or vomiting. She is passing flatus. Patient is anxious to be discharged home today. PHYSICAL EXAM: VITAL SIGNS: Reviewed. GENERAL: Well-developed in no acute distress. HEENT: No sclera icterus. Extraocular movements grossly intact. Moist buccal mucosa. Head is atraumatic, normocephalic. ABDOMEN: Obese. Soft. Nondistended. nontender. NEUROLOGIC: Alert and oriented. ASSESSMENT: 1. Abdominal pain x 3 weeks, CT reports mild left sided enteritis PLAN: Advance diet to full liquid. Patient may be discharged home from a surgical standpoint. Nurse practitioner note has been reviewed by physician. Signing provider agrees with the documented findings, assessment, and plan of care. Objective - Vital Signs Vital signs: Vital Signs Temp 98.4 F 02/07/19 09:09 Pulse 73 02/07/19 08:00 Resp 16 02/07/19 08:00 BP 132/84 02/07/19 07:15 Pulse Ox 96 02/07/19 07:15 Intake & Output 02/06/19 02/07/19 02/07/19 18:59 06:59 18:59 Intake Total 950 Balance 950 Intake: Intake, IV Titration 500 Amount Sodium Chloride 0.9% 1, 500 000 ml @ 100 mls/hr IV . Q10H MAT Rx#:[id number] Oral 450 Other: Voiding Method Toilet Toilet # Voids 1 1 - Labs CBC & Chem 7: 02/06/19 11:00 02/06/19 11:00
== END 2019-02-07 11:21 | disposition home or self-care (01) ==
LOC: EC 18:40 → UNDOADMIN 23:49 → INTOOBSV 23:49 → 4MS4W 23:49 → 4SSUR 02-06 00:15 → 4MS4W 02-06 00:15 → 4SSUR 02-06 01:24 → UNDODISIN 02-07 11:21
PROVIDERS: ADMIT Internal Medicine; ATTEND Internal Medicine
PROC: 05HF33Z Insertion of Infusion Device into Left Cephalic Vein, Percutaneous Approach (ICD-10-PCS; principal; 2019-02-06 09:30)
DX: K56.600 Partial intestinal obstruction, unspecified as to cause (principal); K52.9 Noninfective gastroenteritis and colitis, unspecified; E78.5 Hyperlipidemia, unspecified; G89.29 Other chronic pain; M54.5 Low back pain; J45.909 Unspecified asthma, uncomplicated; K21.9 Gastro-esophageal reflux disease without esophagitis; M47.9 Spondylosis, unspecified; M19.90 Unspecified osteoarthritis, unspecified site; E66.9 Obesity, unspecified; Z68.38 Body mass index [BMI] 38.0-38.9, adult; E04.2 Nontoxic multinodular goiter; R30.0 Dysuria; D64.9 Anemia, unspecified; N28.9 Disorder of kidney and ureter, unspecified; Z79.1 Long term (current) use of non-steroidal anti-inflammatories (NSAID); Z79.899 Other long term (current) drug therapy; Z90.49 Acquired absence of other specified parts of digestive tract; Z98.41 Cataract extraction status, right eye; Z87.440 Personal history of urinary (tract) infections; Z87.81 Personal history of (healed) traumatic fracture
CPT/HCPCS: 96376 ×4; 96375 ×2; 96361 ×2; 96374; 99285; 36415; 36410; 76937; 80053 ×2; 82150; 83605; 83690; 84484; 85025 ×2; 81003; 74176; 74177; G0378 ×3; J1170 ×3; J2405 ×2; J1885 ×2; C9113 ×2; Q9967

== ENCOUNTER 2019-05-07 16:40 | Emergency (ER) | payer OTHER ==
[2019-05-07] MEDS ORDERED: ONDANSETRON 4 MG/2 ML VIAL IVP STA (17:51)
[2019-05-07] MEDS ORDERED: SODIUM CHLORIDE 0.9% 1,000 ML IV STA (17:51)
[2019-05-07] MEDS ORDERED: MORPHINE SULFATE 4 MG/ML SYRINGE IV STA (17:51)
--- NOTE | 2019-05-07 18:33 | ED ---
Abdominal Pain HPI - General Source: patient Mode of arrival: ambulatory Limitations: no limitations <Francy Hanna - Last Filed: 05/07/19 18:27> <Elver Donovan - Last Filed: 05/07/19 22:08> - General Chief Complaint: Abdominal Pain Stated Complaint: fever/abd pain Time Seen by Provider: 05/07/19 17:42 - History of Present Illness Initial Comments: Patient is a 53-year-old female, Past medical history of asthma, thyroid disorder, presenting to the emergency Department with complaints of abdominal pain for 1 week. Patient does not speak [place] so her daughter is translating for her. Patient is also having nausea, vomiting as well as a fever on and off for the last few days. Patient has history of small bowel obstruction as well as cholecystectomy. Patient denies recent antibiotic use. Patient states she is also having low back and bilateral leg pain. Patient denies any trauma or injuries to her back or legs. Patient has been taking Motrin for pain relief. Patient has no other complaints at this time. On arrival to ER, vital signs are stable. (Francy Hanna) - Related Data Home Medications Medication Instructions Recorded Confirmed Albuterol Inhaler [Ventolin Hfa 2 puff INHALATION RT-Q6H PRN 03/15/18 05/07/19 Inhaler] Atorvastatin [Lipitor] 40 mg PO HS 10/23/18 05/07/19 Beclomethasone Dip 80 Mcg/Puff 2 puff INHALATION RT-BID PRN 05/07/19 05/07/19 [Qvar 80 mcg] Cholecalciferol (Vitamin D3) 2,000 unit PO DAILY 05/07/19 05/07/19 [Vitamin D3] Montelukast Sodium [Singulair] 10 mg PO HS 05/07/19 05/07/19 Previous Rx's Medication Instructions Recorded Omeprazole [PriLOSEC] 20 mg PO AC-BRKFST #20 cap 02/07/19 Dicyclomine [Bentyl] 20 mg PO QID PRN #20 tablet 05/07/19 Ondansetron [Zofran] 4 mg PO Q8HR PRN #12 tab 05/07/19 Allergies Allergy/AdvReac Type Severity Reaction Status Date / Time No Known Allergies Allergy Verified 05/07/19 18:33 Review of Systems ROS Other: All systems not noted in ROS Statement are negative. <Francy Hanna - Last Filed: 05/07/19 18:27> ROS Other: All systems not noted in ROS Statement are negative. <Elver Donovan - Last Filed: 05/07/19 22:08> ROS Statement: Those systems with pertinent positive or pertinent negative responses have been documented in the HPI. Past Medical History Past Medical History: Asthma, GERD/Reflux, Hyperlipidemia, Renal Disease, Thyroid Disorder Additional Past Medical History / Comment(s): thyroid nodules-benign, UTIs and recent UTI treated with antibiotic. History of Any Multi-Drug Resistant Organisms: None Reported Past Surgical History: Cholecystectomy Additional Past Surgical History / Comment(s): EGD, colonoscopy, R cataract removed, thyroid biopsy. Past Anesthesia/Blood Transfusion Reactions: No Reported Reaction Past Psychological History: No Psychological Hx Reported Smoking Status: Never smoker Past Alcohol Use History: None Reported Past Drug Use History: None Reported - Past Family History Father Family Medical History: No Reported History Additional Family Medical History / Comment(s): Pt states father was healthy and at the age of 75yrs from old age. Mother Family Medical History: No Reported History Additional Family Medical History / Comment(s): Pt reports that mother was healthy and in her 60s d/t old age. <Francy Hanna - Last Filed: 05/07/19 18:27> General Exam Limitations: no limitations <Francy Hanna - Last Filed: 05/07/19 18:27> - General Exam Comments Initial Comments: GENERAL: Well-appearing, well-nourished and in no acute distress, although appears uncomfortable. HEAD: Atraumatic, normocephalic. EYES: Pupils equal round and reactive to light, extraocular movements intact, sclera anicteric, conjunctiva are normal. ENT: Nares patent, oropharynx clear without exudates. Moist mucous membranes. NECK: Normal range of motion, supple without lymphadenopathy or JVD. LUNGS: Breath sounds clear to auscultation bilaterally and equal. No wheezes rales or rhonchi. HEART: Regular rate and rhythm without murmurs, rubs or gallops. ABDOMEN: Generalized abdominal tenderness, increased on the left side. Soft, normoactive bowel sounds. No masses appreciated. : Deferred EXTREMITIES: Mild pain with palpation bilateral legs. No erythema. Strength is 5 of 5 bilateral lower extremity. Neurovascular intact. Normal range of motion, no pitting or edema. No clubbing or cyanosis. NEUROLOGICAL: Cranial nerves II through XII grossly intact. Normal speech, normal gait. PSYCH: Normal mood, normal affect. SKIN: Warm, Dry, normal turgor, no rashes or lesions noted. (CyndiFrancy L) Course Vital Signs 05/07/19 17:35 Temperature 98.8 F Pulse Rate 80 Respiratory 17 Rate Blood Pressure 156/66 O2 Sat by Pulse 100 Oximetry Medical Decision Making - Lab Data Result diagrams: 05/07/19 18:33 05/07/19 18:33 <Elver Donovan - Last Filed: 05/07/19 22:08> - Medical Decision Making The patient was seen and examined. All diagnostics were reviewed. The case was discussed with PA and agree with the findings as documented. It sounds as though the patient has had abdominal pain, nausea, vomiting, and low-grade fever, and diarrhea intermittently over the past week. She does have a history of small bowel obstruction as well. The computed tomography scan of the abdomen and pelvis does not show any acute processes. The laboratories unremarkable. Abdominal pain is significantly improved on recheck. She still does have a slight degree of nausea after receiving Zofran and is given some Reglan as well. She feels well enough for discharge home. It is felt as though her symptoms potentially could be related to gastroenteritis. Nevertheless, it is felt as though she stable for discharge. She is counseled regarding her diagnosis in detail through dip lube operator and leaves in no identifiable distress. (Elver Donovan) - Lab Data Lab Results 05/07/19 05/07/19 05/07/19 Range/Units 18:33 18:33 18:33 WBC 6.5 (3.8-10.6) k/uL RBC 5.32 (3.80-5.40) m/uL Hgb 13.1 (11.4-16.0) gm/dL Hct 42.2 (34.0-46.0) % MCV 79.4 L (80.0-100.0) fL MCH 24.6 L (25.0-35.0) pg MCHC 31.0 (31.0-37.0) g/dL RDW 13.2 (11.5-15.5) % Plt Count 245 (150-450) k/uL Neutrophils % 60 % Lymphocytes % 30 % Monocytes % 5 % Eosinophils % 3 % Basophils % 0 % Neutrophils # 3.9 (1.3-7.7) k/uL Lymphocytes # 2.0 (1.0-4.8) k/uL Monocytes # 0.3 (0-1.0) k/uL Eosinophils # 0.2 (0-0.7) k/uL Basophils # 0.0 (0-0.2) k/uL Hypochromasia Slight PT 9.6 (9.0-12.0) sec INR 0.9 (<1.2) APTT 23.9 (22.0-30.0) sec Sodium 140 (137-145) mmol/L Potassium 4.0 (3.5-5.1) mmol/L Chloride 107 (98-107) mmol/L Carbon Dioxide 27 (22-30) mmol/L Anion Gap 6 mmol/L BUN 13 (7-17) mg/dL Creatinine 0.56 (0.52-1.04) mg/dL Est GFR (CKD-EPI)AfAm >90 (>60 ml/min/1.73 sqM) Est GFR (CKD-EPI)NonAf >90 (>60 ml/min/1.73 sqM) Glucose 127 H (74-99) mg/dL Calcium 8.8 (8.4-10.2) mg/dL Total Bilirubin 0.3 (0.2-1.3) mg/dL AST 20 (14-36) U/L ALT 20 (9-52) U/L Alkaline Phosphatase 107 (38-126) U/L Total Protein 7.1 (6.3-8.2) g/dL Albumin 3.8 (3.5-5.0) g/dL Amylase 66 (30-110) U/L Lipase 112 (23-300) U/L Urine Color Urine Appearance (Clear) Urine pH (5.0-8.0) Ur Specific [place] (1.001-1.035) Urine Protein (Negative) Urine Glucose (UA) (Negative) Urine Ketones (Negative) Urine Blood (Negative) Urine Nitrite (Negative) Urine Bilirubin (Negative) Urine Urobilinogen (<2.0) mg/dL Ur Leukocyte Esterase (Negative) Urine WBC (0-5) /hpf Ur Squamous Epith Cells (0-4) /hpf Urine Mucus (None) /hpf 05/07/19 Range/Units 18:33 WBC (3.8-10.6) k/uL RBC (3.80-5.40) m/uL Hgb (11.4-16.0) gm/dL Hct (34.0-46.0) % MCV (80.0-100.0) fL MCH (25.0-35.0) pg MCHC (31.0-37.0) g/dL RDW (11.5-15.5) % Plt Count (150-450) k/uL Neutrophils % % Lymphocytes % % Monocytes % % Eosinophils % % Basophils % % Neutrophils # (1.3-7.7) k/uL Lymphocytes # (1.0-4.8) k/uL Monocytes # (0-1.0) k/uL Eosinophils # (0-0.7) k/uL Basophils # (0-0.2) k/uL Hypochromasia PT (9.0-12.0) sec INR (<1.2) APTT (22.0-30.0) sec Sodium (137-145) mmol/L Potassium (3.5-5.1) mmol/L Chloride (98-107) mmol/L Carbon Dioxide (22-30) mmol/L Anion Gap mmol/L BUN (7-17) mg/dL Creatinine (0.52-1.04) mg/dL Est GFR (CKD-EPI)AfAm (>60 ml/min/1.73 sqM) Est GFR (CKD-EPI)NonAf (>60 ml/min/1.73 sqM) Glucose (74-99) mg/dL Calcium (8.4-10.2) mg/dL Total Bilirubin (0.2-1.3) mg/dL AST (14-36) U/L ALT (9-52) U/L Alkaline Phosphatase (38-126) U/L Total Protein (6.3-8.2) g/dL Albumin (3.5-5.0) g/dL Amylase (30-110) U/L Lipase (23-300) U/L Urine Color Yellow Urine Appearance Clear (Clear) Urine pH 5.5 (5.0-8.0) Ur Specific [place] 1.024 (1.001-1.035) Urine Protein Negative (Negative) Urine Glucose (UA) Negative (Negative) Urine Ketones Negative (Negative) Urine Blood Trace H (Negative) Urine Nitrite Negative (Negative) Urine Bilirubin Negative (Negative) Urine Urobilinogen 2.0 (<2.0) mg/dL Ur Leukocyte Esterase Negative (Negative) Urine WBC <1 (0-5) /hpf Ur Squamous Epith Cells 1 (0-4) /hpf Urine Mucus Few H (None) /hpf Disposition <Francy Hanna - Last Filed: 05/07/19 18:27> Is patient prescribed a controlled substance at d/c from ED?: No Time of Disposition: 22:08 <Elver Donovan - Last Filed: 05/07/19 22:08> Clinical Impression: Abdominal pain, Nausea & vomiting, Diarrhea Disposition: HOME SELF-CARE Condition: Good Prescriptions: Dicyclomine [Bentyl] 20 mg PO QID PRN #20 tablet PRN Reason: Pain Ondansetron [Zofran] 4 mg PO Q8HR PRN #12 tab PRN Reason: Nausea Referrals: Ismael Hayes MD [Primary Care Provider] - 1-2 days
[2019-05-07 18:57] LABS: Basophils % (A) 0 %; Eosinophils # (A) 0.2 k/uL (0-0.7); Eosinophils % (A) 3 %; HCT 42.2 % (34.0-46.0); HGB 13.1 gm/dL (11.4-16.0); Hypochromasia Slight; Lymphocytes % (A) 30 %; MCH 24.6 pg (25.0-35.0); MCV 79.4 fL (80.0-100.0); Mean Platelet Volume 6.7; Monocytes # (A) 0.3 k/uL (0-1.0); Monocytes % (A) 5 %; Neutrophils # (A) 3.9 k/uL (1.3-7.7); Neutrophils % (A) 60 %; Platelet Count 245 k/uL (150-450); RBC 5.32 m/uL (3.80-5.40); RDW 13.2 % (11.5-15.5); WBC 6.5 k/uL (3.8-10.6)
[2019-05-07 19:03] LABS: Appearance,Urine Clear (Clear); Color,Urine Yellow; Glucose,Urine (UA) Negative (Negative); Ketones,Urine Negative (Negative); PH, Urine 5.5 (5.0-8.0); Protein,Urine Negative (Negative); Specific Gravity,Urine 1.024 (1.001-1.035)
[2019-05-07 19:04] LABS: Bilirubin,Urine Negative (Negative); Blood,Urine Trace (Negative); Leukocyte Esterase,Urine Negative (Negative); Mucus,Urine Few /hpf; Nitrite,Urine Negative (Negative); Squamous Epithelial Cell,Urine 1 /hpf (0-4)
[2019-05-07 19:10] LABS: INR 0.9 (<1.2); Partial Thromboplastin Time 23.9 sec (22.0-30.0); Prothrombin Time 9.6 sec (9.0-12.0)
[2019-05-07 19:12] LABS: ALT 20 U/L (9-52); AST 20 U/L (14-36); African American GFR (CKD) >90 (>60 ml/min/1.73 sqM); Albumin 3.8 g/dL (3.5-5.0); Alkaline Phosphatase 107 U/L (38-126); Amylase 66 U/L (30-110); Anion Gap 6 mmol/L; Blood Urea Nitrogen 13 mg/dL (7-17); Calcium 8.8 mg/dL (8.4-10.2); Carbon Dioxide 27 mmol/L (22-30); Chloride 107 mmol/L (98-107); Glucose 127 mg/dL (74-99); Sodium 140 mmol/L (137-145); Total Bilirubin 0.3 mg/dL (0.2-1.3); Total Protein 7.1 g/dL (6.3-8.2)
[2019-05-07] MEDS ORDERED: KETOROLAC 30 MG/ML 1 ML VIAL IVP STA (20:06)
--- NOTE | 2019-05-07 21:47 | CT ---
EXAMINATION TYPE: CT abdomen pelvis w con DATE OF EXAM: 05/07/2019 COMPARISON: 02/06/2019 INDICATION: Abdominal pain DLP: 1241.7 mGycm, Automated exposure control for dose reduction was used. CONTRAST: 100 mL of Isovue 300. Study performed without Oral Contrast TECHNIQUE: Axial images were obtained from above the diaphragm to the pubic rami in the axial plane a t 5 mm thick sections. Reconstructed images are reviewed on the computer in the coronal plane. FINDINGS: Limited CT sections are obtained the lung bases. The lung bases are clear. CT ABDOMEN: Liver: Mild fatty infiltration Spleen: Normal Pancreas: Normal Adrenal glands: The adrenal glands are normal. Gallbladder: Surgically absent Kidneys: No masses are evident. No hydronephrosis is present. No cysts are present. Delayed images were obtained through the kidneys, which remain unremarkable. Aorta: Vascular calcification is within the aorta. Inferior vena cava: Normal. CT PELVIS: Loops of bowel within the abdomen and pelvis are normal. There are loops of bowel which are incom pletely distended or lack oral contrast limiting their evaluation. Appendix: Normal as visualized. Urinary bladder: Normal. Genitourinary structures: Uterus and ovaries appear normal. Osseous structures: No suspicious lytic or sclerotic lesions. Facet degenerative changes of the lower lumbar spine. IMPRESSIONS: 1. No acute abdomen or pelvic abnormality
[2019-05-07] MEDS ORDERED: METOCLOPRAMIDE 5 MG/ML 2 ML VIAL IVP STA (22:04)
[2019-05-07 22:19] VITALS: BP 137/64; PULSE 76; RESP 18; TEMP 98.2
== END 2019-05-07 22:41 | disposition home or self-care (01) ==
LOC: EC 16:40
DX: R10.9 Unspecified abdominal pain (principal); R50.9 Fever, unspecified; R11.2 Nausea with vomiting, unspecified; R19.7 Diarrhea, unspecified; E07.9 Disorder of thyroid, unspecified; J45.909 Unspecified asthma, uncomplicated; M79.605 Pain in left leg; M79.604 Pain in right leg; M54.5 Low back pain; K21.9 Gastro-esophageal reflux disease without esophagitis; E78.5 Hyperlipidemia, unspecified; Z79.51 Long term (current) use of inhaled steroids; Z79.899 Other long term (current) drug therapy; Z87.19 Personal history of other diseases of the digestive system; Z90.49 Acquired absence of other specified parts of digestive tract
CPT/HCPCS: 36415; 80053; 82150; 83690; 85025; 85610; 85730; 81001; 74177; 99284; 96374; 96375 ×3; 96361 ×4; J2270; J2765; J2405; J1885; Q9967

== ENCOUNTER → 2019-07-13 | Outpatient (CLI) | payer OTHER ==
[2019-07-13 18:03] LABS: Basophils % (A) 0 %; Eosinophils # (A) 0.1 k/uL (0-0.7); Eosinophils % (A) 1 %; HCT 45.5 % (34.0-46.0); HGB 14.2 gm/dL (11.4-16.0); Hypochromasia Moderate; Lymphocytes # (A) 1.4 k/uL (1.0-4.8); Lymphocytes % (A) 27 %; MCHC 31.2 g/dL (31.0-37.0); MCV 80.2 fL (80.0-100.0); Mean Platelet Volume 7.1; Monocytes # (A) 0.4 k/uL (0-1.0); Monocytes % (A) 8 %; Neutrophils # (A) 3.2 k/uL (1.3-7.7); Neutrophils % (A) 62 %; Platelet Count 295 k/uL (150-450); RBC 5.68 m/uL (3.80-5.40); RDW 12.8 % (11.5-15.5); WBC 5.2 k/uL (3.8-10.6)
--- NOTE | 2019-07-13 22:32 | XR ---
EXAMINATION TYPE: XR chest 2V DATE OF EXAM: 07/13/2019 COMPARISON: Chest x-ray October 23, 2018. HISTORY: Cough and congestion. Weakness. TECHNIQUE: Frontal and lateral views of the chest are obtained. FINDINGS: Some eventration right hemidiaphragm is redemonstrated. There is no focal air space opacity , pleural effusion, or pneumothorax seen. The cardiac silhouette size remains within normal limits. The osseous structures are intact. Cholecystectomy clips redemonstrated. IMPRESSION: No acute cardiopulmonary process. No significant change from prior.
== END | disposition home or self-care (01) ==
LOC: RADXRMAIN 16:33
PROVIDERS: ATTEND Internal Medicine
DX: J20.9 Acute bronchitis, unspecified (principal)
CPT/HCPCS: 71046; 85025

== ENCOUNTER → 2019-08-09 | Outpatient (CLI) | payer OTHER ==
[2019-08-09 19:01] LABS: Gliadin AB IgA, Deaminated NEGATIVE (NEGATIVE); Gliadin AB IgA, Unit 1.1 U/mL; Gliadin AB IgG, Deaminated NEGATIVE (NEGATIVE)
== END | disposition home or self-care (01) ==
LOC: LABWHC1 10:46
PROVIDERS: ATTEND Internal Medicine
DX: K59.00 Constipation, unspecified (principal); K58.9 Irritable bowel syndrome, unspecified; D89.89 Other specified disorders involving the immune mechanism, not elsewhere classified; J45.909 Unspecified asthma, uncomplicated
CPT/HCPCS: 36415; 83516

== ENCOUNTER → 2019-08-14 | Outpatient (CLI) | payer OTHER ==
--- NOTE | 2019-08-16 10:01 | MM ---
Reason for exam: screening (asymptomatic). Last mammogram was performed 1 year and 5 months ago. Physical Findings: A clinical breast exam by your physician is recommended on an annual basis and results should be correlated with mammographic findings. MG Screening Mammo w CAD Bilateral CC and MLO view(s) were taken. Prior study comparison: March 06, 2018, bilateral MG 3d screening mammo w/cad. There are scattered fibroglandular densities. There is chronic nodularity in the left breast. No significant changes when compared with prior studies. ASSESSMENT: Negative, BI-RAD 1 RECOMMENDATION: Routine screening mammogram of both breasts in 1 year.
== END | disposition home or self-care (01) ==
LOC: RADMAMWWP 13:19
PROVIDERS: ATTEND Obstetrics & Gynecology
DX: Z12.31 Encounter for screening mammogram for malignant neoplasm of breast (principal)
CPT/HCPCS: 77067

== ENCOUNTER 2019-08-22 07:07 | Emergency (ER) | payer OTHER ==
[2019-08-22 07:22] VITALS: TEMP 97.9
[2019-08-22] MEDS ORDERED: SODIUM CHLORIDE 0.9% 500 ML 500 ML IV STA (07:43)
[2019-08-22] MEDS ORDERED: ONDANSETRON 4 MG/2 ML VIAL IVP STA (07:43)
--- NOTE | 2019-08-22 08:27 | ED ---
General Adult HPI - General Chief complaint: Nausea/Vomiting/Diarrhea Stated complaint: Headache Time Seen by Provider: 08/22/19 07:28 Source: patient, family Mode of arrival: wheelchair Limitations: language barrier - History of Present Illness Initial comments: The patient is a 53-year-old female with past history of asthma, hyperlipidemia and reflux who presents to the emergency room with reported abdominal pain. Her is at bedside and provides the majority of the history as she does not speak [place]. She does agree to his translation. He states that for the past 4 days she has had nausea with vomiting. Also reports to left upper quadrant abdominal pain and diarrhea. Denies ripping or tearing sensation to her back. Denies any chest pain or shortness of breath. No cough or hemoptysis. Denies any black or bloody stools. Admits to decreased frequency of urination. Denies any fevers but admits chills. Reports to headache but denies visual changes. No neck pain or stiffness. No sick contacts or recent travel. She has not taken any medications for her symptoms. There are no other alleviating, precipitating or modifying factors - Related Data Home Medications Medication Instructions Recorded Confirmed Albuterol Inhaler [Ventolin Hfa 2 puff INHALATION RT-Q6H PRN 03/15/18 05/07/19 Inhaler] Atorvastatin [Lipitor] 40 mg PO HS 10/23/18 05/07/19 Beclomethasone Dip 80 Mcg/Puff 2 puff INHALATION RT-BID PRN 05/07/19 05/07/19 [Qvar 80 mcg] Cholecalciferol (Vitamin D3) 2,000 unit PO DAILY 05/07/19 05/07/19 [Vitamin D3] Montelukast Sodium [Singulair] 10 mg PO HS 05/07/19 05/07/19 Previous Rx's Medication Instructions Recorded Omeprazole [PriLOSEC] 20 mg PO AC-BRKFST #20 cap 02/07/19 Dicyclomine [Bentyl] 20 mg PO QID PRN #20 tablet 05/07/19 Ondansetron [Zofran] 4 mg PO Q8HR PRN #12 tab 05/07/19 Cephalexin [Keflex] 500 mg PO BID #14 cap 08/22/19 Ondansetron Odt [Zofran Odt] 4 mg PO Q8HR PRN #10 tab 08/22/19 Phenazopyridine [Pyridium] 200 mg PO TID #6 tablet 08/22/19 Allergies Allergy/AdvReac Type Severity Reaction Status Date / Time No Known Allergies Allergy Verified 08/22/19 07:22 Review of Systems ROS Statement: Those systems with pertinent positive or pertinent negative responses have been documented in the HPI. ROS Other: All systems not noted in ROS Statement are negative. Past Medical History Past Medical History: Asthma, GERD/Reflux, Hyperlipidemia, Renal Disease, Thyroid Disorder Additional Past Medical History / Comment(s): thyroid nodules-benign, UTIs and recent UTI treated with antibiotic. History of Any Multi-Drug Resistant Organisms: None Reported Past Surgical History: Cholecystectomy Additional Past Surgical History / Comment(s): EGD, colonoscopy, R cataract removed, thyroid biopsy. Past Anesthesia/Blood Transfusion Reactions: No Reported Reaction Past Psychological History: No Psychological Hx Reported Smoking Status: Never smoker Past Alcohol Use History: None Reported Past Drug Use History: None Reported - Past Family History Father Family Medical History: No Reported History Additional Family Medical History / Comment(s): Pt states father was healthy and at the age of 75yrs from old age. Mother Family Medical History: No Reported History Additional Family Medical History / Comment(s): Pt reports that mother was healthy and in her 60s d/t old age. General Exam Limitations: language barrier Course Vital Signs 08/22/19 08/22/19 07:19 10:35 Temperature 97.9 F Pulse Rate 78 88 Respiratory 18 17 Rate Blood Pressure 141/81 136/71 O2 Sat by Pulse 98 99 Oximetry EKG Findings - EKG Comments: EKG Findings:: EKG dementia to normal since rhythm with ventricular rate of 78. MI interval 138. QRS 86. QTC of 444. No acute ST segment elevations or depressions concerning for ischemic changes Medical Decision Making - Medical Decision Making Upon arrival the patient was placed into room 15. A thorough history and physical exam is performed. A 12-lead EKG was performed because of her reported abdominal pain with vomiting. I did insert an IV. The patient was given 2 mg of morphine for her pain and 4 mg of Zofran for her nausea. I also provided patient with a 500 mL bolus of normal saline. Laboratory studies were con ducted. CBC is unremarkable. Radiation studies are normal. CMP shows a glucose of 106. Urinalysis shows trace blood, small leukocyte esterase and 6 red blood cells. Influenza A and B are not affected. I reevaluated the patient she continues to complain of suprapubic cramping. She is requesting something for pain control. The patient does have an abnormal UA I did provide the patient with dose of Pyridium and Rocephin. The urine specimen will be sent for culture. At this time the patient will be discharged home and given prescriptions for Keflex, Pyridium and Zofran. She needs to follow up with her primary care doctor in 2-4 days. Return to the emergency room for any worsening symptoms. The patient was in agreement treatment plan she was discharged home in stable condition - Lab Data Result diagrams: 08/22/19 08:00 08/22/19 08:00 Lab Results 08/22/19 08/22/19 08/22/19 Range/Units 08:00 08:00 08:00 WBC 5.7 (3.8-10.6) k/uL RBC 4.90 (3.80-5.40) m/uL Hgb 12.4 (11.4-16.0) gm/dL Hct 39.0 (34.0-46.0) % MCV 79.5 L (80.0-100.0) fL MCH 25.4 (25.0-35.0) pg MCHC 31.9 (31.0-37.0) g/dL RDW 12.8 (11.5-15.5) % Plt Count 244 (150-450) k/uL Neutrophils % 49 % Lymphocytes % 39 % Monocytes % 5 % Eosinophils % 3 % Basophils % 0 % Neutrophils # 2.8 (1.3-7.7) k/uL Lymphocytes # 2.2 (1.0-4.8) k/uL Monocytes # 0.3 (0-1.0) k/uL Eosinophils # 0.2 (0-0.7) k/uL Basophils # 0.0 (0-0.2) k/uL PT (9.0-12.0) sec INR (<1.2) APTT (22.0-30.0) sec Sodium 140 (137-145) mmol/L Potassium 3.9 (3.5-5.1) mmol/L Chloride 106 (98-107) mmol/L Carbon Dioxide 28 (22-30) mmol/L Anion Gap 6 mmol/L BUN 14 (7-17) mg/dL Creatinine 0.64 (0.52-1.04) mg/dL Est GFR (CKD-EPI)AfAm >90 (>60 ml/min/1.73 sqM) Est GFR (CKD-EPI)NonAf >90 (>60 ml/min/1.73 sqM) Glucose 106 H (74-99) mg/dL Plasma Lactic Acid Cabrera 1.2 (0.7-2.0) mmol/L Calcium 8.8 (8.4-10.2) mg/dL Total Bilirubin 0.4 (0.2-1.3) mg/dL AST 19 (14-36) U/L ALT 17 (4-34) U/L Alkaline Phosphatase 93 (38-126) U/L Troponin I (0.000-0.034) ng/mL Total Protein 6.7 (6.3-8.2) g/dL Albumin 3.6 (3.5-5.0) g/dL Lipase 96 (23-300) U/L TSH 1.370 (0.465-4.680) mIU/L Urine Color Urine Appearance (Clear) Urine pH (5.0-8.0) Ur Specific [place] (1.001-1.035) Urine Protein (Negative) Urine Glucose (UA) (Negative) Urine Ketones (Negative) Urine Blood (Negative) Urine Nitrite (Negative) Urine Bilirubin (Negative) Urine Urobilinogen (<2.0) mg/dL Ur Leukocyte Esterase (Negative) Urine RBC (0-5) /hpf Urine WBC (0-5) /hpf Ur Squamous Epith Cells (0-4) /hpf Urine Mucus (None) /hpf Influenza Type A RNA (Not Detectd) Influenza Type B (PCR) (Not Detectd) 08/22/19 08/22/19 08/22/19 Range/Units 08:00 08:00 08:00 WBC (3.8-10.6) k/uL RBC (3.80-5.40) m/uL Hgb (11.4-16.0) gm/dL Hct (34.0-46.0) % MCV (80.0-100.0) fL MCH (25.0-35.0) pg MCHC (31.0-37.0) g/dL RDW (11.5-15.5) % Plt Count (150-450) k/uL Neutrophils % % Lymphocytes % % Monocytes % % Eosinophils % % Basophils % % Neutrophils # (1.3-7.7) k/uL Lymphocytes # (1.0-4.8) k/uL Monocytes # (0-1.0) k/uL Eosinophils # (0-0.7) k/uL Basophils # (0-0.2) k/uL PT 9.7 (9.0-12.0) sec INR 0.9 (<1.2) APTT 23.4 (22.0-30.0) sec Sodium (137-145) mmol/L Potassium (3.5-5.1) mmol/L Chloride (98-107) mmol/L Carbon Dioxide (22-30) mmol/L Anion Gap mmol/L BUN (7-17) mg/dL Creatinine (0.52-1.04) mg/dL Est GFR (CKD-EPI)AfAm (>60 ml/min/1.73 sqM) Est GFR (CKD-EPI)NonAf (>60 ml/min/1.73 sqM) Glucose (74-99) mg/dL Plasma Lactic Acid [place]rera (0.7-2.0) mmol/L Calcium (8.4-10.2) mg/dL Total Bilirubin (0.2-1.3) mg/dL AST (14-36) U/L ALT (4-34) U/L Alkaline Phosphatase (38-126) U/L Troponin I <0.012 (0.000-0.034) ng/mL Total Protein (6.3-8.2) g/dL Albumin (3.5-5.0) g/dL Lipase (23-300) U/L TSH (0.465-4.680) mIU/L Urine Color Yellow Urine Appearance Clear (Clear) Urine pH 6.0 (5.0-8.0) Ur Specific [place] 1.021 (1.001-1.035) Urine Protein Negative (Negative) Urine Glucose (UA) Negative (Negative) Urine Ketones Negative (Negative) Urine Blood Trace H (Negative) Urine Nitrite Negative (Negative) Urine Bilirubin Negative (Negative) Urine Urobilinogen <2.0 (<2.0) mg/dL Ur Leukocyte Esterase Small H (Negative) Urine RBC 6 H (0-5) /hpf Urine WBC 3 (0-5) /hpf Ur Squamous Epith Cells 2 (0-4) /hpf Urine Mucus Rare H (None) /hpf Influenza Type A RNA (Not Detectd) Influenza Type B (PCR) (Not Detectd) 08/22/19 Range/Units 08:05 WBC (3.8-10.6) k/uL RBC (3.80-5.40) m/uL Hgb (11.4-16.0) gm/dL Hct (34.0-46.0) % MCV (80.0-100.0) fL MCH (25.0-35.0) pg MCHC (31.0-37.0) g/dL RDW (11.5-15.5) % Plt Count (150-450) k/uL Neutrophils % % Lymphocytes % % Monocytes % % Eosinophils % % Basophils % % Neutrophils # (1.3-7.7) k/uL Lymphocytes # (1.0-4.8) k/uL Monocytes # (0-1.0) k/uL Eosinophils # (0-0.7) k/uL Basophils # (0-0.2) k/uL PT (9.0-12.0) sec INR (<1.2) APTT (22.0-30.0) sec Sodium (137-145) mmol/L Potassium (3.5-5.1) mmol/L Chloride (98-107) mmol/L Carbon Dioxide (22-30) mmol/L Anion Gap mmol/L BUN (7-17) mg/dL Creatinine (0.52-1.04) mg/dL Est GFR (CKD-EPI)AfAm (>60 ml/min/1.73 sqM) Est GFR (CKD-EPI)NonAf (>60 ml/min/1.73 sqM) Glucose (74-99) mg/dL Plasma Lactic Acid [place]rera (0.7-2.0) mmol/L Calcium (8.4-10.2) mg/dL Total Bilirubin (0.2-1.3) mg/dL AST (14-36) U/L ALT (4-34) U/L Alkaline Phosphatase (38-126) U/L Troponin I (0.000-0.034) ng/mL Total Protein (6.3-8.2) g/dL Albumin (3.5-5.0) g/dL Lipase (23-300) U/L TSH (0.465-4.680) mIU/L Urine Color Urine Appearance (Clear) Urine pH (5.0-8.0) Ur Specific [place] (1.001-1.035) Urine Protein (Negative) Urine Glucose (UA) (Negative) Urine Ketones (Negative) Urine Blood (Negative) Urine Nitrite (Negative) Urine Bilirubin (Negative) Urine Urobilinogen (<2.0) mg/dL Ur Leukocyte Esterase (Negative) Urine RBC (0-5) /hpf Urine WBC (0-5) /hpf Ur Squamous Epith Cells (0-4) /hpf Urine Mucus (None) /hpf Influenza Type A RNA Not Detected (Not Detectd) Influenza Type B (PCR) Not Detected (Not Detectd) Disposition Clinical Impression: Abdominal pain, Nausea and vomiting Disposition: HOME SELF-CARE Instructions (If sedation given, give patient instructions): Abdominal Pain (ED) Additional Instructions: Please follow-up with your primary care doctor in 2-4 days. Return to the emergency room for any new worsening symptoms Prescriptions: Cephalexin [Keflex] 500 mg PO BID #14 cap Phenazopyridine [Pyridium] 200 mg PO TID #6 tablet Ondansetron Odt [Zofran Odt] 4 mg PO Q8HR PRN #10 tab PRN Reason: Nausea Is patient prescribed a controlled substance at d/c from ED?: No Referrals: Ismael Hayes MD [Primary Care Provider] - 1-2 days Time of Disposition: 10:20
[2019-08-22 08:34] LABS: Basophils % (A) 0 %; Eosinophils # (A) 0.2 k/uL (0-0.7); Eosinophils % (A) 3 %; HGB 12.4 gm/dL (11.4-16.0); Lymphocytes # (A) 2.2 k/uL (1.0-4.8); Lymphocytes % (A) 39 %; MCH 25.4 pg (25.0-35.0); MCHC 31.9 g/dL (31.0-37.0); MCV 79.5 fL (80.0-100.0); Mean Platelet Volume 6.9; Monocytes # (A) 0.3 k/uL (0-1.0); Monocytes % (A) 5 %; Neutrophils # (A) 2.8 k/uL (1.3-7.7); Neutrophils % (A) 49 %; Platelet Count 244 k/uL (150-450); RDW 12.8 % (11.5-15.5); WBC 5.7 k/uL (3.8-10.6)
[2019-08-22] MEDS ORDERED: MORPHINE SULFATE 2 MG/ML SYRINGE IVP STA (08:47)
[2019-08-22 08:48] LABS: ALT 17 U/L (4-34); AST 19 U/L (14-36); African American GFR (CKD) >90 (>60 ml/min/1.73 sqM); Albumin 3.6 g/dL (3.5-5.0); Alkaline Phosphatase 93 U/L (38-126); Anion Gap 6 mmol/L; Blood Urea Nitrogen 14 mg/dL (7-17); Calcium 8.8 mg/dL (8.4-10.2); Carbon Dioxide 28 mmol/L (22-30); Chloride 106 mmol/L (98-107); Glucose 106 mg/dL (74-99); Non-African American GFR(CKD) >90 (>60 ml/min/1.73 sqM); Potassium 3.9 mmol/L (3.5-5.1); Sodium 140 mmol/L (137-145); Total Bilirubin 0.4 mg/dL (0.2-1.3); Total Protein 6.7 g/dL (6.3-8.2)
[2019-08-22 08:49] LABS: INR 0.9 (<1.2); Partial Thromboplastin Time 23.4 sec (22.0-30.0); Prothrombin Time 9.7 sec (9.0-12.0)
--- NOTE | 2019-08-22 08:51 | XR ---
EXAMINATION TYPE: XR chest 2V DATE OF EXAM: 08/22/2019 COMPARISON: 07/13/2019 HISTORY: Cough and chest pain TECHNIQUE: Frontal and lateral views of the chest are obtained. FINDINGS: There is no focal air space opacity, pleural effusion, or pneumothorax seen. The cardiac silhouette size is stable. The osseous structures are intact. Cholecystectomy clips are present. IMPRESSION: No acute cardiopulmonary process.
[2019-08-22 09:04] LABS: Appearance,Urine Clear (Clear); Bilirubin,Urine Negative (Negative); Blood,Urine Trace (Negative); Color,Urine Yellow; Glucose,Urine (UA) Negative (Negative); Ketones,Urine Negative (Negative); Leukocyte Esterase,Urine Small (Negative); Mucus,Urine Rare /hpf; Nitrite,Urine Negative (Negative); Protein,Urine Negative (Negative); RBC,Urine 6 /hpf (0-5); Specific Gravity,Urine 1.021 (1.001-1.035); Squamous Epithelial Cell,Urine 2 /hpf (0-4); Urobilinogen,Urine <2.0 mg/dL (<2.0); WBC,Urine 3 /hpf (0-5)
--- NOTE | 2019-08-22 09:20 | CT ---
EXAMINATION TYPE: CT brain wo con DATE OF EXAM: 08/22/2019 COMPARISON: None HISTORY: DUFFY CT DLP: 1039.[address] of the brain was performed. The ventricles, basal cisterns and sulci overlying the cerebral convexities demonstrate mild enlargem ent. There is no evidence for intracranial hemorrhage or sulcal effacement. There is decreased attenuation about the periventricular white matter and deep white matter of both c erebral hemispheres, compatible with chronic small vessel ischemia. Differential diagnosis does inclu de demyelination. No mass effects are seen.No midline shift. Osseous calvarium is intact. If symptoms persist consider MRI. IMPRESSION: 1. Age related atrophic and chronic small vessel ischemic change without acute intracranial process s een at this time.
--- NOTE | 2019-08-22 09:37 | CT ---
EXAMINATION TYPE: CT abdomen pelvis w con DATE OF EXAM: 08/22/2019 COMPARISON: None HISTORY: Pain CT DLP: 1908.9 mGycm CONTRAST: CT scan of the abdomen and pelvis is performed without Oral Contrast and with IV Contrast, patient in jected with 100 mL of Isovue 300. FINDINGS: LUNG BASES-: No visible nodule. No infiltrate. LIVER/GB: Cholecystectomy clips are in place. No space occupying hepatic lesion. Biliary tree is o f normal caliber. PANCREAS: No inflammation. No distinct mass. SPLEEN: No splenic enlargement. No lesion seen. ADRENALS: No nodule. No thickening. KIDNEYS/BLADDER: No hydronephrosis. No nephrolithiasis. No distinct renal mass. Urinary bladder g rossly unremarkable. BOWEL: Normal appendix. Mild jejunal wall thickening may reflect enteritis. Correlate clinically. GENITAL ORGANS: No gross abnormality. LYMPH NODES: No greater than 1cm abdominal or pelvic lymph nodes are appreciated. AORTA: No significant abnormality. OSSEOUS STRUCTURES: No significant abnormality is seen. OTHER: No significant additional abnormality is seen. IMPRESSION: 1. Correlate for mild enteritis.
[2019-08-22] MEDS ORDERED: PHENAZOPYRIDINE 200 MG TAB PO STA (10:17)
[2019-08-22] MEDS ORDERED: cefTRIAXone IN SWFI 1,000 MG/10 ML SYRINGE IVP STA (10:17)
[2019-08-22 10:36] VITALS: BP 136/71; PULSE 88; RESP 17
== END 2019-08-22 10:34 | disposition home or self-care (01) ==
LOC: EC 07:07
DX: R11.2 Nausea with vomiting, unspecified (principal); R10.12 Left upper quadrant pain; R19.7 Diarrhea, unspecified; R51 Headache; J45.909 Unspecified asthma, uncomplicated; E78.5 Hyperlipidemia, unspecified; Z79.899 Other long term (current) drug therapy; Z90.49 Acquired absence of other specified parts of digestive tract
CPT/HCPCS: 36415; 93005; 80053; 84443; 83605; 83690; 84484; 85025; 85610; 85730; 81001; 87502; 71046; 70450; 74177; 99284; 96374; 96375 ×2; 96361 ×2; J2405; J0696; J2270; Q9967

== ENCOUNTER → 2020-03-07 | Outpatient (CLI) | payer OTHER ==
[2020-03-07 13:55] LABS: Basophils % (A) 1 %; Eosinophils # (A) 0.3 k/uL (0-0.7); Eosinophils % (A) 6 %; HCT 40.2 % (34.0-46.0); HGB 12.3 gm/dL (11.4-16.0); Hypochromasia Moderate; Lymphocytes # (A) 1.5 k/uL (1.0-4.8); Lymphocytes % (A) 33 %; MCH 24.4 pg (25.0-35.0); MCHC 30.7 g/dL (31.0-37.0); MCV 79.3 fL (80.0-100.0); Mean Platelet Volume 6.9; Monocytes # (A) 0.2 k/uL (0-1.0); Monocytes % (A) 5 %; Neutrophils # (A) 2.4 k/uL (1.3-7.7); Neutrophils % (A) 53 %; Platelet Count 217 k/uL (150-450); RBC 5.06 m/uL (3.80-5.40); RDW 13.1 % (11.5-15.5); WBC 4.5 k/uL (3.8-10.6)
[2020-03-07 19:55] LABS: ALT 32 U/L (8-44); AST 21 U/L (13-35); African American GFR (CKD) 121.5 (60.0-200.0); Albumin/Globulin Ratio 1.52 (1.60-3.17); Alkaline Phosphatase 105 U/L (41-126); BUN/Creat Ratio 21.67 Ratio (12.00-20.00); C Reactive Protein <0.4 mg/dL (0.0-0.8); Calcium 9.2 mg/dL (8.7-10.3); Carbon Dioxide 30.4 mmol/L (21.6-31.8); Chloride 105 mmol/L (96-109); Chol/HDL Ratio 4.51; Cholesterol 212 mg/dL (0-200); Creatine Kinase 76 U/L (26-186); Globulin 2.7 g/dL (1.6-3.3); Glucose 104 mg/dL (70-110); LDL Cholesterol,Calculated 134.8 mg/dL (0.0-131.0); Non-African American GFR(CKD) 104.8 (60.0-200.0); Sodium 141 mmol/L (135-145); Total Bilirubin 0.6 mg/dL (0.3-1.2); Total Protein 6.8 g/dL (6.2-8.2)
[2020-03-08 00:43] LABS: Hemoglobin A1C 6.4 % (4.0-6.0)
[2020-03-08 04:18] LABS: Erythrocyte Sedimentation Rate 22 mm/Hr (0-30)
== END | disposition home or self-care (01) ==
LOC: LABWHC1 11:16
PROVIDERS: ATTEND Internal Medicine
DX: E11.65 Type 2 diabetes mellitus with hyperglycemia (principal); D64.9 Anemia, unspecified; J44.9 Chronic obstructive pulmonary disease, unspecified; I10 Essential (primary) hypertension; E78.5 Hyperlipidemia, unspecified; E03.9 Hypothyroidism, unspecified; E66.9 Obesity, unspecified; M19.90 Unspecified osteoarthritis, unspecified site
CPT/HCPCS: 36415; 80053; 80061; 82550; 83036; 84439; 84443; 85025; 85652; 86140

== ENCOUNTER → 2020-04-29 | Outpatient (CLI) | payer OTHER ==
[2020-04-29 14:20] LABS: Basophils % (A) 1 %; Eosinophils # (A) 0.3 k/uL (0-0.7); Eosinophils % (A) 7 %; HCT 39.9 % (34.0-46.0); HGB 12.5 gm/dL (11.4-16.0); Hypochromasia Slight; Lymphocytes # (A) 1.6 k/uL (1.0-4.8); Lymphocytes % (A) 39 %; MCH 25.2 pg (25.0-35.0); MCHC 31.3 g/dL (31.0-37.0); MCV 80.6 fL (80.0-100.0); Mean Platelet Volume 6.7; Monocytes # (A) 0.2 k/uL (0-1.0); Monocytes % (A) 5 %; Neutrophils % (A) 47 %; Platelet Count 219 k/uL (150-450); RBC 4.95 m/uL (3.80-5.40); RDW 13.2 % (11.5-15.5); WBC 4.2 k/uL (3.8-10.6)
[2020-04-30 05:09] LABS: Varicella IgM Antibody 1.34 INDEX (<=0.90)
[2020-04-30 06:11] LABS: Herpes simplex I and/or II IgM 0.83 INDEX (<=0.90); Herpes simplex IgG I Ab 50.5 (< or = 0.90); Herpes simplex IgG II Ab 0.1 (< or = 0.90)
== END | disposition home or self-care (01) ==
LOC: LABWHC1 12:23
PROVIDERS: ATTEND Internal Medicine
DX: K11.20 Sialoadenitis, unspecified (principal)
CPT/HCPCS: 36415; 85025; 86644; 86645; 86694; 86695; 86696; 86787

== ENCOUNTER → 2020-05-29 | Outpatient (CLI) | payer OTHER ==
--- NOTE | 2020-05-29 15:50 | XR ---
Left shoulder HISTORY: Pain 3 views of the left shoulder Left lung apex as visualized is normal. Bone mineralization, joint spaces are maintained. Slight supe rior displacement of the distal clavicle noted. No fracture or dislocation. IMPRESSION: Correlate for acromioclavicular separation.
--- NOTE | 2020-05-29 15:52 | XR ---
EXAMINATION TYPE: XR cervical spine comp DATE OF EXAM: 05/29/2020 TECHNIQUE: Frontal, lateral, oblique, and open mouth view of the cervical spine are obtained. HISTORY: M81.0 M25.512 COMPARISON: MR cervical spine April 30, 2016 FINDINGS: The cervical spine is visualized from C1 thru the mid C7 level, there is persistent slight dorsal convex scoliotic curvature centered mid cervical spine. The pre-vertebral soft tissue appear s within normal limits. The C1-C2 articulation is within normal limits on the open mouth view. Vert ebral body heights and disc space heights are maintained. Suboptimal evaluation of C7-T1 disc space w ithout dedicated swimmer's view The oblique images suggest new mild/moderate narrowing left C3-C4 lev el due to marginal osteophytes. Overlying hair lauren suspected. IMPRESSION: As above .
== END | disposition home or self-care (01) ==
LOC: RADXRMAIN 15:17
PROVIDERS: ATTEND Internal Medicine
DX: M41.82 Other forms of scoliosis, cervical region (principal); M25.78 Osteophyte, vertebrae; M81.0 Age-related osteoporosis without current pathological fracture
CPT/HCPCS: 72050

== ENCOUNTER 2020-07-07 19:29 | Emergency (ER) | payer OTHER ==
[2020-07-07] MEDS ORDERED: diphenhydrAMINE 50 MG/ML 1 ML VIAL IVP STA (19:51)
[2020-07-07] MEDS ORDERED: METOCLOPRAMIDE 5 MG/ML 2 ML VIAL IVP STA (19:51)
[2020-07-07] MEDS ORDERED: SODIUM CHLORIDE 0.9% 2,000 ML IV STA (19:51)
[2020-07-07 20:28] LABS: Basophils % (A) 0 %; Eosinophils % (A) 0 %; HGB 13.3 gm/dL (11.4-16.0); Hypochromasia Slight; Lymphocytes # (A) 2.5 k/uL (1.0-4.8); Lymphocytes % (A) 31 %; MCH 24.4 pg (25.0-35.0); MCV 78.7 fL (80.0-100.0); Mean Platelet Volume 7.3; Monocytes # (A) 0.4 k/uL (0-1.0); Monocytes % (A) 5 %; Neutrophils % (A) 62 %; Platelet Count 301 k/uL (150-450); RBC 5.46 m/uL (3.80-5.40); RDW 12.6 % (11.5-15.5); WBC 8.1 k/uL (3.8-10.6)
[2020-07-07 20:48] LABS: ALT 18 U/L (4-34); AST 19 U/L (14-36); African American GFR (CKD) >90 (>60 ml/min/1.73 sqM); Albumin 4.2 g/dL (3.5-5.0); Alkaline Phosphatase 106 U/L (38-126); Anion Gap 5 mmol/L; Blood Urea Nitrogen 18 mg/dL (7-17); Calcium 9.2 mg/dL (8.4-10.2); Carbon Dioxide 30 mmol/L (22-30); Chloride 105 mmol/L (98-107); Glucose 134 mg/dL (74-99); Lipase 195 U/L (23-300); Non-African American GFR(CKD) 85 (>60 ml/min/1.73 sqM); Potassium 4.3 mmol/L (3.5-5.1); Sodium 140 mmol/L (137-145); Total Bilirubin 0.3 mg/dL (0.2-1.3); Total Protein 7.6 g/dL (6.3-8.2)
--- NOTE | 2020-07-07 20:54 | ED ---
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 Symptoms have been going on for the past 3 days. Family at bedside reports a history as she does not speak [place]. Family states that the patient has a history of headache. No fevers but admits to chills. She admits nausea without vomiting. No chest pain or shortness of breath. No abdominal pain. Does admit to right knee pain. Patient was tested for Covid and was negative. No head trauma. Denies any unilateral numbness or weakness. Denies changes in her bowel or bladder habits. No other alleviating, precipitating or modifying factors (Wilma Muñoz) - Related Data Home Medications Medication Instructions Recorded Confirmed Albuterol Inhaler (Mhu) [Ventolin 2 puff INHALATION RT-Q6H PRN 03/15/18 05/07/19 Hfa Inhaler (Mhu)] Atorvastatin [Lipitor] 40 mg PO HS 10/23/18 05/07/19 Beclomethasone Dip 80 Mcg/Puff 2 puff INHALATION RT-BID PRN 05/07/19 05/07/19 [Qvar 80 mcg] Cholecalciferol (Vitamin D3) 2,000 unit PO DAILY 05/07/19 05/07/19 [Vitamin D3] Montelukast Sodium [Singulair] 10 mg PO HS 05/07/19 05/07/19 Previous Rx's Medication Instructions Recorded Omeprazole [PriLOSEC] 20 mg PO AC-BRKFST #20 cap 02/07/19 Dicyclomine [Bentyl] 20 mg PO QID PRN #20 tablet 05/07/19 Ondansetron [Zofran] 4 mg PO Q8HR PRN #12 tab 05/07/19 Cephalexin [Keflex] 500 mg PO BID #14 cap 08/22/19 Ondansetron Odt [Zofran Odt] 4 mg PO Q8HR PRN #10 tab 08/22/19 Phenazopyridine [Pyridium] 200 mg PO TID #6 tablet 08/22/19 Allergies Allergy/AdvReac Type Severity Reaction Status Date / Time No Known Allergies Allergy Verified 07/07/20 19:48 Review of Systems ROS Other: All systems not noted in ROS Statement are negative. <Wilma Muñoz Keila - Last Filed: 07/07/20 20:54> ROS Other: All systems not noted in ROS Statement are negative. <José Manuel Thompson - Last Filed: 07/07/20 21:37> ROS Statement: Those systems with pertinent positive or pertinent negative responses have been documented in the HPI. Past Medical History Past Medical History: Asthma, GERD/Reflux, Hyperlipidemia, Renal Disease, Thyroid Disorder Additional Past Medical History / Comment(s): thyroid nodules-benign, UTIs and recent UTI treated with antibiotic. History of Any Multi-Drug Resistant Organisms: None Reported Past Surgical History: Cholecystectomy Additional Past Surgical History / Comment(s): EGD, colonoscopy, R cataract removed, thyroid biopsy. Past Anesthesia/Blood Transfusion Reactions: No Reported Reaction Past Psychological History: No Psychological Hx Reported Smoking Status: Never smoker Past Alcohol Use History: None Reported Past Drug Use History: None Reported - Past Family History Father Family Medical History: No Reported History Additional Family Medical History / Comment(s): Pt states father was healthy and at the age of 75yrs from old age. Mother Family Medical History: No Reported History Additional Family Medical History / Comment(s): Pt reports that mother was healthy and in her 60s d/t old age. <Wilma Muñoz Keila - Last Filed: 07/07/20 20:54> General Exam Limitations: no limitations General appearance: alert, in no apparent distress Head exam: Present: atraumatic, normocephalic, normal inspection Eye exam: Present: normal appearance, PERRL, EOMI. Absent: scleral icterus, conjunctival injection, periorbital swelling ENT exam: Present: normal exam, mucous membranes moist Neck exam: Present: normal inspection. Absent: tenderness, meningismus, lymphadenopathy Respiratory exam: Present: normal lung sounds bilaterally. Absent: respiratory distress, wheezes, rales, rhonchi, stridor Cardiovascular Exam: Present: regular rate, normal rhythm, normal heart sounds. Absent: systolic murmur, diastolic murmur, rubs, gallop, clicks GI/Abdominal exam: Present: soft, normal bowel sounds. Absent: distended, tenderness, guarding, rebound, rigid Extremities exam: Present: normal inspection, full ROM, normal capillary refill. Absent: tenderness, pedal edema, joint swelling, calf tenderness Back exam: Present: normal inspection Neurological exam: Present: alert, oriented X3, CN II-XII intact Psychiatric exam: Present: normal affect, normal mood Skin exam: Present: warm, dry, intact, normal color. Absent: rash <Wilma Muñoz - Last Filed: 07/07/20 20:54> Course Vital Signs 07/07/20 19:30 Temperature 98.7 F Pulse Rate 68 Respiratory 16 Rate Blood Pressure 156/85 O2 Sat by Pulse 99 Oximetry Medical Decision Making - Lab Data Result diagrams: 07/07/20 20:08 07/07/20 20:08 <Wilma Muñoz - Last Filed: 07/07/20 20:54> - Lab Data Result diagrams: 07/07/20 20:08 07/07/20 20:08 - Radiology Data Radiology results: report reviewed (Computed tomography scan the brain shows no acute process), image reviewed (Right knee x-ray shows no acute process) <José Manuel Thompson - Last Filed: 07/07/20 21:37> - Medical Decision Making Upon arrival patient is placed into room 11. A thorough history and physical exam was performed. Peripheral IV is established. Laboratory studies are conducted. Patient was given Reglan and Benadryl for her headache and nausea. Patient was sent for CT of her brain in her right knee x-ray. Patient's case will be signed out to Dr. Thompson at this time. (Wilma Muñoz) Patient and family requesting discharge home. Headache is resolved. Nausea resolved. Patient requests a shot for her knee. Patient has had right knee pain for the past 2 years. (José Manuel Thompson) - Lab Data Lab Results 07/07/20 07/07/20 07/07/20 Range/Units 20:08 20:08 20:08 WBC 8.1 (3.8-10.6) k/uL RBC 5.46 H (3.80-5.40) m/uL Hgb 13.3 (11.4-16.0) gm/dL Hct 43.0 (34.0-46.0) % MCV 78.7 L (80.0-100.0) fL MCH 24.4 L (25.0-35.0) pg MCHC 31.0 (31.0-37.0) g/dL RDW 12.6 (11.5-15.5) % Plt Count 301 (150-450) k/uL MPV 7.3 Neutrophils % 62 % Lymphocytes % 31 % Monocytes % 5 % Eosinophils % 0 % Basophils % 0 % Neutrophils # 5.0 (1.3-7.7) k/uL Lymphocytes # 2.5 (1.0-4.8) k/uL Monocytes # 0.4 (0-1.0) k/uL Eosinophils # 0.0 (0-0.7) k/uL Basophils # 0.0 (0-0.2) k/uL Hypochromasia Slight Sodium 140 (137-145) mmol/L Potassium 4.3 (3.5-5.1) mmol/L Chloride 105 (98-107) mmol/L Carbon Dioxide 30 (22-30) mmol/L Anion Gap 5 mmol/L BUN 18 H (7-17) mg/dL Creatinine 0.80 (0.52-1.04) mg/dL Est GFR (CKD-EPI)AfAm >90 (>60 ml/min/1.73 sqM) Est GFR (CKD-EPI)NonAf 85 (>60 ml/min/1.73 sqM) Glucose 134 H (74-99) mg/dL Calcium 9.2 (8.4-10.2) mg/dL Total Bilirubin 0.3 (0.2-1.3) mg/dL AST 19 (14-36) U/L ALT 18 (4-34) U/L Alkaline Phosphatase 106 (38-126) U/L Total Protein 7.6 (6.3-8.2) g/dL Albumin 4.2 (3.5-5.0) g/dL Lipase 195 (23-300) U/L Urine Color Yellow Urine Appearance Clear (Clear) Urine pH 6.5 (5.0-8.0) Ur Specific [place] 1.016 (1.001-1.035) Urine Protein Negative (Negative) Urine Glucose (UA) Negative (Negative) Urine Ketones Negative (Negative) Urine Blood Trace H (Negative) Urine Nitrite Negative (Negative) Urine Bilirubin Negative (Negative) Urine Urobilinogen <2.0 (<2.0) mg/dL Ur Leukocyte Esterase Small H (Negative) Urine RBC 4 (0-5) /hpf Urine WBC 1 (0-5) /hpf Ur Squamous Epith Cells 1 (0-4) /hpf Hyaline Casts 1 (0-2) /lpf Urine Mucus Rare H (None) /hpf - EKG Data EKG Comments: EKG demonstrates normal sinus rhythm with a ventricular rate of 73. NM interval 142. QRS E4. QTC of 434. Some baseline artifact. No acute ST segment elevation (Wilma Muñoz) Disposition <Wilma Muñoz - Last Filed: 07/07/20 20:54> Is patient prescribed a controlled substance at d/c from ED?: No Time of Disposition: 21:37 <José Manuel Thompson - Last Filed: 07/07/20 21:37> Clinical Impression: Cephalgia, Nausea, Knee pain Disposition: HOME SELF-CARE Condition: Stable Instructions (If sedation given, give patient instructions): Acute Nausea and Vomiting (ED), Acute Headache (ED), Knee Pain (ED) Additional Instructions: Please follow-up with primary care physician in the next day or 2 for recheck. Please also follow-up with orthopedics, number provided. Return for fever, vomiting, increased pain or weakness, worsening symptoms or other concerns. Referrals: Ismael Hayes MD [Primary Care Provider] - 1-2 days Abelardo Haney DO [Doctor of Osteopathic Medicine] - 1-2 days
[2020-07-07 21:19] LABS: Appearance,Urine Clear (Clear); Bilirubin,Urine Negative (Negative); Blood,Urine Trace (Negative); Color,Urine Yellow; Glucose,Urine (UA) Negative (Negative); Hyaline Casts,Urine 1 /lpf (0-2); Ketones,Urine Negative (Negative); Leukocyte Esterase,Urine Small (Negative); Mucus,Urine Rare /hpf; Nitrite,Urine Negative (Negative); PH, Urine 6.5 (5.0-8.0); Protein,Urine Negative (Negative); RBC,Urine 4 /hpf (0-5); Specific Gravity,Urine 1.016 (1.001-1.035); Squamous Epithelial Cell,Urine 1 /hpf (0-4); Urobilinogen,Urine <2.0 mg/dL (<2.0); WBC,Urine 1 /hpf (0-5)
--- NOTE | 2020-07-07 21:27 | CT ---
EXAMINATION TYPE: CT brain wo con DATE OF EXAM: 07/07/2020 COMPARISON: 08/22/2019 HISTORY: Headache. CT DLP: 1099.4 mGycm Automated exposure control for dose reduction was used. Ventricles and sulci appear normal. There is no mass effect nor midline shift. There is no sign of in tracranial hemorrhage. Calvarium is intact. There is no evidence of cerebral edema. Skull base is int act. IMPRESSION: Negative unenhanced head CT scan. No change.
--- NOTE | 2020-07-07 21:28 | XR ---
EXAMINATION TYPE: XR knee complete RT DATE OF EXAM: 07/07/2020 COMPARISON: NONE HISTORY: Knee pain TECHNIQUE: 3 views FINDINGS: I see no fracture nor dislocation. Joint spaces are fairly normal. There is no sign of knee joint effusion. IMPRESSION: Negative right knee exam.
[2020-07-07] MEDS ORDERED: KETOROLAC 15 MG/ML 1 ML VIAL IVP STA (21:38)
[2020-07-07 21:48] VITALS: BP 132/84; PULSE 81; RESP 20; TEMP 98
== END 2020-07-07 21:48 | disposition home or self-care (01) ==
LOC: EC 19:29
DX: R51.9 Headache, unspecified (principal); M25.561 Pain in right knee; R11.0 Nausea; J45.909 Unspecified asthma, uncomplicated; E78.5 Hyperlipidemia, unspecified; E07.9 Disorder of thyroid, unspecified; Z79.51 Long term (current) use of inhaled steroids; Z79.899 Other long term (current) drug therapy; Z98.890 Other specified postprocedural states
CPT/HCPCS: 36415; 93005; 80053; 83690; 85025; 81001; 73562; 70450; 96374; 96375 ×2; 96361 ×2; 99284; J1200; J2765; J1885